=== PATIENT | male | born 1950 | race Caucasian/White ===

== ENCOUNTER 2017-04-10 00:52 | Inpatient (IN) | payer MEDICAID, OTHER ==
[~2017-04-10] VITALS: Ht 182.9 cm; Wt 84.8 kg
--- NOTE | 2017-04-10 01:04 | PHYS DOC ---
Adult General Chief Complaint Chief Complaint: MULTIPLE COMPLAINTS HPI HPI Patient is a 66 year old male presenting to the emergency department from [facility] for evaluation of abnormal labs. He has elevated creatinine and had a dialysis catheter placed approximately 2 months ago however he has not started dialysis. He has creatinine levels at least at 5 however his potassium started at 5.2 on March 29 and then was 6.2 on April 06 and today was drawn and it was 6.6. An EKG was done which reportedly they did not like so they sent him here for further evaluation and treatment. They say that they sent him as no physician was willing to do dialysis on him. Patient says that he is asymptomatic with no chest pain shortness of breath nausea vomiting or weakness. He does have bilateral lower extremity swelling. Review of Systems Review of Systems Constitutional: Denies fever or chills [] Eyes: Denies change in visual acuity, redness, or eye pain [] HENT: Denies nasal congestion or sore throat [] Respiratory: Denies cough or shortness of breath [] Cardiovascular: No additional information not addressed in HPI [] GI: Denies abdominal pain, nausea, vomiting, bloody stools or diarrhea [] : Denies dysuria or hematuria [] Musculoskeletal: Denies back pain or joint pain [] Integument: Denies rash or skin lesions [] Neurologic: Denies headache, focal weakness or sensory changes [] Allergies Allergies Allergies Coded Allergies Type Severity Reaction Last Updated Verified morphine Allergy Unknown 04/10/17 Yes Physical Exam Physical Exam Constitutional: Well developed, well nourished, no acute distress, non-toxic appearance. [] HENT: Normocephalic, atraumatic, bilateral external ears normal, oropharynx moist, no oral exudates, nose normal. [] Eyes: PERRLA, EOMI, conjunctiva pale, no discharge. [] Neck: Normal range of motion, no tenderness, supple, no stridor. [] Cardiovascular:Heart rate regular rhythm, no murmur [] Lungs & Thorax: Bilateral breath sounds clear to auscultation [] Abdomen: Bowel sounds normal, soft, no tenderness, no masses, no pulsatile masses. [] Skin: Warm, dry, no erythema, no rash. [] Back: No tenderness, no CVA tenderness. [] Extremities: No tenderness, no cyanosis, no clubbing, ROM intact, 1-2+ edema BL. [] Neurologic: Alert and oriented X 3, normal motor function, normal sensory function, no focal deficits noted. [] Current Patient Data Vital Signs Vital Signs Date Time Temp Pulse Resp B/P (MAP) Pulse Ox O2 Delivery O2 Flow Rate FiO2 04/10/17 00:52 98.4 80 164/77 (106) 100 Room Air 98.4 Lab Values Laboratory Tests Test 04/10/17 01:20 White Blood Count 4.6 x10^3/uL (4.0-11.0) Red Blood Count 2.86 x10^6/uL (4.30-5.70) L Hemoglobin 8.1 g/dL (13.0-17.5) L Hematocrit 25.3 % (39.0-53.0) L Mean Corpuscular Volume 88 fL (79-100) Mean Corpuscular Hemoglobin 29 pg (25-35) Mean Corpuscular Hemoglobin Concent 32 g/dL (31-37) Red Cell Distribution Width 15.2 % (11.5-14.5) H Platelet Count 68 x10^3/uL (140-400) L Neutrophils (%) (Auto) 46 % (31-73) Lymphocytes (%) (Auto) 33 % (24-48) Monocytes (%) (Auto) 7 % (0-9) Eosinophils (%) (Auto) 12 % (0-3) H Basophils (%) (Auto) 1 % (0-3) Neutrophils # (Auto) 2.1 x10^3uL (1.8-7.7) Lymphocytes # (Auto) 1.5 x10^3/uL (1.0-4.8) Monocytes # (Auto) 0.3 x10^3/uL (0.0-1.1) Eosinophils # (Auto) 0.6 x10^3/uL (0.0-0.7) Basophils # (Auto) 0.1 x10^3/uL (0.0-0.2) Prothrombin Time 13.9 SEC (11.7-14.0) Prothrombin Time INR 1.1 (0.8-1.1) PTT 31 SEC (24-38) Sodium Level 140 mmol/L (136-145) Potassium Level 5.8 mmol/L (3.5-5.1) H Chloride Level 107 mmol/L (98-107) Carbon Dioxide Level 21 mmol/L (21-32) Anion Gap 12 (6-14) Blood Urea Nitrogen 78 mg/dL (8-26) H Creatinine 5.4 mg/dL (0.7-1.3) H Estimated GFR (Cockcroft-Gault) 10.7 BUN/Creatinine Ratio 14 (6-20) Glucose Level 88 mg/dL (70-99) Calcium Level 8.2 mg/dL (8.5-10.1) L Magnesium Level 3.0 mg/dL (1.8-2.4) H Total Bilirubin 0.2 mg/dL (0.2-1.0) Aspartate Amino Transferase (AST) 25 U/L (15-37) Alanine Aminotransferase (ALT) 16 U/L (16-63) Alkaline Phosphatase 71 U/L (46-116) Troponin I Quantitative < 0.017 ng/mL (0.000-0.055) AL-Wkp-U-Type Natriuretic Peptide 6777 pg/mL (0-124) H Total Protein 6.6 g/dL (6.4-8.2) Albumin 2.9 g/dL (3.4-5.0) L Albumin/Globulin Ratio 0.8 (1.0-1.7) L Laboratory Tests 04/10/17 01:20 Laboratory Tests 04/10/17 01:20 EKG EKG Sinus rhythm at 79 beats her minutes with normal axis no obvious ST elevation or depression slightly peaked T waves in lead V3 and V4. QRS complex is normal interval. Radiology/Procedures Radiology/Procedures [] Course & Med Decision Making Course & Med Decision Making If potassium is indeed 6.6 she will likely require admission for dialysis although his EKG is normal at this time. Potassium is 5.8 and patient does have mildly peaked T waves but there is a normal QRS. To be more of a slowly progressing issue and he is tearing on the breaking point. Given his poor lack of follow-up and inability to sit up dialysis an outpatient he'll be admitted for further observation and treatment. Dragon Disclaimer Dragon Disclaimer This electronic medical record was generated, in whole or in part, using a voice recognition dictation system. Departure Departure Impression: Primary Impression: Hyperkalemia Additional Impressions: ESRD (end stage renal disease) Anemia Disposition: 09 ADMITTED INPATIENT Admitting Physician: Ann Moeller Condition: STABLE Problem Qualifiers YOUSUF GODDARD DO Apr 10, 2017 01:04
[2017-04-10 01:29] LABS: BASO # 0.1 x10^3/uL (0.0-0.2); BASO % 1 % (0-3); EOS % 12 % (0-3); HEMATOCRIT 25.3 % (39.0-53.0); HEMOGLOBIN 8.1 g/dL (13.0-17.5); LYMPH # 1.5 x10^3/uL (1.0-4.8); LYMPH % 33 % (24-48); MEAN CORPUSCULAR HEMOGLOBIN 29 pg (25-35); MEAN CORPUSCULAR HGB CONC 32 g/dL (31-37); MEAN CORPUSCULAR VOLUME 88 fL (79-100); MONO % 7 % (0-9); NEUT % 46 % (31-73); PLATELET COUNT 68 x10^3/uL (140-400); RED BLOOD COUNT 2.86 x10^6/uL (4.30-5.70); RED CELL DISTRIBUTION WIDTH 15.2 % (11.5-14.5); WHITE BLOOD COUNT 4.6 x10^3/uL (4.0-11.0)
[2017-04-10 01:40] LABS: CALCIUM 8.2 mg/dL (8.5-10.1); CREATININE 5.4 mg/dL (0.7-1.3); GFR 10.7; POTASSIUM 5.8 mmol/L (3.5-5.1)
[2017-04-10 01:43] LABS: INR 1.1 (0.8-1.1); PROTHROMBIN TIME PATIENT 13.9 SEC (11.7-14.0)
[2017-04-10 01:46] LABS: ALBUMIN 2.9 g/dL (3.4-5.0); ALBUMIN/GLOBULIN RATIO 0.8 (1.0-1.7); TOTAL BILIRUBIN 0.2 mg/dL (0.2-1.0); TOTAL PROTEIN 6.6 g/dL (6.4-8.2)
[2017-04-10 03:00] VITALS: BP 146/73
[2017-04-10] MEDS: IV NORMAL SALINE 1000ML BAG 1,000 ML IV SCH ×3 (03:14→21:16)
[2017-04-10] MEDS ORDERED: TAMS0.4C2 PO (04:00)
[2017-04-10] MEDS ORDERED: ONDA4TAB10 SL (04:00)
[2017-04-10] MEDS ORDERED: NPH,100V SQ (04:00)
[2017-04-10] MEDS ORDERED: SULF1TAB24 PO (04:00)
[2017-04-10] MEDS ORDERED: INSU100V5 IJ (04:00)
[2017-04-10] MEDS ORDERED: FURO40TA4 PO (04:00)
[2017-04-10] MEDS ORDERED: METF500T4 PO (04:00)
[2017-04-10] MEDS ORDERED: AMLO10TA4 PO (04:00)
[2017-04-10] MEDS ORDERED: DIVA500T2 PO (04:00)
[2017-04-10 07:00] VITALS: BP 137/59
[2017-04-10 11:00] VITALS: BP 154/67
--- NOTE | 2017-04-10 11:21 | EKG ---
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
[2017-04-10] MEDS: amLODIPine BESYLATE 10 MG TABLET PO SCH (12:47)
[2017-04-10] MEDS: TAMSULOSIN 0.4 MG CAP.ER.24H. PO SCH (12:47)
[2017-04-10] MEDS: DIVALPROEX DELAYED RELEASE 500 MG TABLET.DR. PO SCH ×2 (12:48→21:19)
[2017-04-10] MEDS: FUROSEMIDE 40 MG TABLET. PO SCH (12:48)
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
[2017-04-10] MEDS ORDERED: SMZ/TMP 800/160MG TABLET. PO SCH (13:00)
[2017-04-10 15:00] VITALS: BP 118/53
[2017-04-10] MEDS: INSULIN ASPART 300 UNITS/3 ML INSULN.PEN SQ SCH (16:30)
--- NOTE | 2017-04-10 17:34 | PDOC2 ---
CONSULT Date of Consult Date of Consult DATE: 04/10/17 TIME: 17:27 Reason for Consult Reason for Consult: CKD History of Present Illness Reason for Visit: 66 yr old gentleman. From local [facility]. Admitted for fever, malaise. No CP or SOA but perhaps a bit SOA earlier today Looks comfortable. Eating dinner. No other c/o Current Problem List Problem List Problems Medical Problems: (1) Anemia Status: Acute (2) ESRD (end stage renal disease) Status: Acute (3) Hyperkalemia Status: Acute Current Medications Current Medications Current Medications Sodium Chloride 1,000 ml @ 100 mls/hr Q10H IV Last administered on 04/10/17 12:48; Start 04/10/17 at 02:00; Stop 04/11/17 at 01:59 Amlodipine Besylate (Norvasc) 10 mg DAILY PO Last administered on 04/10/17 12: 47; Start 04/10/17 at 13:00 Divalproex Sodium (Depakote) 500 mg BID PO Last administered on 04/10/17 12:48 ; Start 04/10/17 at 13:00 Furosemide (Lasix) 40 mg DAILY PO Last administered on 04/10/17 12:48; Start 04/10/17 at 13:00 Insulin Aspart (NovoLOG) 10 units TIDAC SQ ; Start 04/10/17 at 16:30 Trimethoprim/ Sulfamethoxazole (Bactrim Ds) 1 tab BID PO Last administered on 12:47; Start 04/10/17 at 13:00; Stop 04/11/17 at 21:01 Tamsulosin HCl (Flomax) 0.4 mg DAILY PO Last administered on 04/10/17 12:47; Start 04/10/17 at 13:00 Insulin Detemir (Levemir) 5 units BID SQ ; Start 04/10/17 at 21:00 Active Scripts Active Reported Zofran Odt (Ondansetron) 4 Mg Tab.rapdis 1 Tab SL Q6HRS Tamsulosin Hcl 0.4 Mg Cap.er.24h 0.4 Mg PO DAILY Norvasc (Amlodipine Besylate) 10 Mg Tablet 10 Mg PO DAILY Metformin Hcl 500 Mg Tablet 500 Mg PO BIDWMEALS Humulin R (Insulin Regular, Human) 100 Unit/1 Ml Vial 100 Unit IJ Humulin N (Nph, Human Insulin Isophane) 100 Unit/1 Ml Vial 5 Unit SQ BID Furosemide 40 Mg Tablet 1 Tab PO DAILY Depakote (Divalproex Sodium) 500 Mg Tablet. 1 Tab PO BID Bactrim Ds Tablet (Sulfamethoxazole/Trimethoprim) 1 Each Tablet 1 Tab PO BID Allergies Allergies: Coded Allergies: morphine (Verified Allergy, Unknown, 04/10/17) ROS Review of System As above / neg on a 10 point scale. Physical Exam General: Alert, Oriented X3, No acute distress HEENT: Atraumatic Lungs: Normal air movement, Other (Non labored) Heart: Regular rate, Normal S1, Normal S2 Abdomen: Soft, No tenderness, No hepatosplenomegaly Skin: No rashes Neuro: Normal speech, Normal tone Psych/Mental Status: Mental status NL Vitals VITALS Vital Signs Date Time Temp Pulse Resp B/P (MAP) Pulse Ox O2 Delivery O2 Flow Rate FiO2 04/10/17 15:00 99.5 62 18 118/53 (74) 94 Room Air 99.5 Labs Labs Laboratory Tests Test 04/10/17 01:20 04/10/17 07:46 04/10/17 11:21 04/10/17 16:09 White Blood Count 4.6 x10^3/uL (4.0-11.0) Red Blood Count 2.86 x10^6/uL (4.30-5.70) Hemoglobin 8.1 g/dL (13.0-17.5) Hematocrit 25.3 % (39.0-53.0) Mean Corpuscular Volume 88 fL (79-100) Mean Corpuscular Hemoglobin 29 pg (25-35) Mean Corpuscular Hemoglobin Concent 32 g/dL (31-37) Red Cell Distribution Width 15.2 % (11.5-14.5) Platelet Count 68 x10^3/uL (140-400) Neutrophils (%) (Auto) 46 % (31-73) Lymphocytes (%) (Auto) 33 % (24-48) Monocytes (%) (Auto) 7 % (0-9) Eosinophils (%) (Auto) 12 % (0-3) Basophils (%) (Auto) 1 % (0-3) Neutrophils # (Auto) 2.1 x10^3uL (1.8-7.7) Lymphocytes # (Auto) 1.5 x10^3/uL (1.0-4.8) Monocytes # (Auto) 0.3 x10^3/uL (0.0-1.1) Eosinophils # (Auto) 0.6 x10^3/uL (0.0-0.7) Basophils # (Auto) 0.1 x10^3/uL (0.0-0.2) Prothrombin Time 13.9 SEC (11.7-14.0) Prothromb Time International Ratio 1.1 (0.8-1.1) Activated Partial Thromboplast Time 31 SEC (24-38) Sodium Level 140 mmol/L (136-145) Potassium Level 5.8 mmol/L (3.5-5.1) Chloride Level 107 mmol/L (98-107) Carbon Dioxide Level 21 mmol/L (21-32) Anion Gap 12 (6-14) Blood Urea Nitrogen 78 mg/dL (8-26) Creatinine 5.4 mg/dL (0.7-1.3) Estimated GFR (Cockcroft-Gault) 10.7 BUN/Creatinine Ratio 14 (6-20) Glucose Level 88 mg/dL (70-99) Calcium Level 8.2 mg/dL (8.5-10.1) Magnesium Level 3.0 mg/dL (1.8-2.4) Total Bilirubin 0.2 mg/dL (0.2-1.0) Aspartate Amino Transf (AST/SGOT) 25 U/L (15-37) Alanine Aminotransferase (ALT/SGPT) 16 U/L (16-63) Alkaline Phosphatase 71 U/L (46-116) Troponin I Quantitative < 0.017 ng/mL (0.000-0.055) OC-Grx-R-Type Natriuretic Peptide 6777 pg/mL (0-124) Total Protein 6.6 g/dL (6.4-8.2) Albumin 2.9 g/dL (3.4-5.0) Albumin/Globulin Ratio 0.8 (1.0-1.7) Glucose (Fingerstick) 89 mg/dL (70-99) 117 mg/dL (70-99) 98 mg/dL (70-99) Laboratory Tests Test 04/10/17 01:20 04/10/17 07:46 04/10/17 11:21 04/10/17 16:09 White Blood Count 4.6 x10^3/uL (4.0-11.0) Red Blood Count 2.86 x10^6/uL (4.30-5.70) Hemoglobin 8.1 g/dL (13.0-17.5) Hematocrit 25.3 % (39.0-53.0) Mean Corpuscular Volume 88 fL (79-100) Mean Corpuscular Hemoglobin 29 pg (25-35) Mean Corpuscular Hemoglobin Concent 32 g/dL (31-37) Red Cell Distribution Width 15.2 % (11.5-14.5) Platelet Count 68 x10^3/uL (140-400) Neutrophils (%) (Auto) 46 % (31-73) Lymphocytes (%) (Auto) 33 % (24-48) Monocytes (%) (Auto) 7 % (0-9) Eosinophils (%) (Auto) 12 % (0-3) Basophils (%) (Auto) 1 % (0-3) Neutrophils # (Auto) 2.1 x10^3uL (1.8-7.7) Lymphocytes # (Auto) 1.5 x10^3/uL (1.0-4.8) Monocytes # (Auto) 0.3 x10^3/uL (0.0-1.1) Eosinophils # (Auto) 0.6 x10^3/uL (0.0-0.7) Basophils # (Auto) 0.1 x10^3/uL (0.0-0.2) Prothrombin Time 13.9 SEC (11.7-14.0) Prothromb Time International Ratio 1.1 (0.8-1.1) Activated Partial Thromboplast Time 31 SEC (24-38) Sodium Level 140 mmol/L (136-145) Potassium Level 5.8 mmol/L (3.5-5.1) Chloride Level 107 mmol/L (98-107) Carbon Dioxide Level 21 mmol/L (21-32) Anion Gap 12 (6-14) Blood Urea Nitrogen 78 mg/dL (8-26) Creatinine 5.4 mg/dL (0.7-1.3) Estimated GFR (Cockcroft-Gault) 10.7 BUN/Creatinine Ratio 14 (6-20) Glucose Level 88 mg/dL (70-99) Calcium Level 8.2 mg/dL (8.5-10.1) Magnesium Level 3.0 mg/dL (1.8-2.4) Total Bilirubin 0.2 mg/dL (0.2-1.0) Aspartate Amino Transf (AST/SGOT) 25 U/L (15-37) Alanine Aminotransferase (ALT/SGPT) 16 U/L (16-63) Alkaline Phosphatase 71 U/L (46-116) Troponin I Quantitative < 0.017 ng/mL (0.000-0.055) GP-Tir-Y-Type Natriuretic Peptide 6777 pg/mL (0-124) Total Protein 6.6 g/dL (6.4-8.2) Albumin 2.9 g/dL (3.4-5.0) Albumin/Globulin Ratio 0.8 (1.0-1.7) Glucose (Fingerstick) 89 mg/dL (70-99) 117 mg/dL (70-99) 98 mg/dL (70-99) Assessment/Plan Assessment/Plan CKD IV HYPERKALEMIA HTN Start HD today/tomorrow. Recheck labs. I/Os d/w pt LISANDRO GUZMÁN MD Apr 10, 2017 17:34
[2017-04-10 18:26] LABS: CALCIUM 7.8 mg/dL (8.5-10.1); GFR 11.7
[2017-04-10] MEDS ORDERED: IV NORMAL SALINE 1000ML BAG 1,000 ML IV PRN (18:36)
[2017-04-10 18:45] LABS: POTASSIUM 6.1 mmol/L (3.5-5.1)
[2017-04-10] MEDS ORDERED: 0.9 % SODIUM CHLORIDE 10 ML DISP.SYRIN. IV PRN ×2 (18:45)
[2017-04-10] MEDS ORDERED: DIALYSIS PATIENT. MC PRN (18:45)
[2017-04-10] MEDS: INSULIN DETEMIR 300 UNITS/3 ML INSULN.PEN. SQ SCH (21:26)
[2017-04-10 23:20] VITALS: BP 130/70
[2017-04-11 03:54] VITALS: BP 123/64
[2017-04-11 07:00] VITALS: BP 137/102
[2017-04-11] MEDS: INSULIN ASPART 300 UNITS/3 ML INSULN.PEN SQ SCH ×3 (07:30→16:30)
[2017-04-11] MEDS: INSULIN DETEMIR 300 UNITS/3 ML INSULN.PEN. SQ SCH ×2 (09:00→20:59)
[2017-04-11] MEDS: FUROSEMIDE 40 MG TABLET. PO SCH (09:06)
[2017-04-11] MEDS: amLODIPine BESYLATE 10 MG TABLET PO SCH (09:07)
[2017-04-11] MEDS: DIVALPROEX DELAYED RELEASE 500 MG TABLET.DR. PO SCH ×2 (09:07→20:57)
[2017-04-11] MEDS: TAMSULOSIN 0.4 MG CAP.ER.24H. PO SCH (09:07)
[2017-04-11 09:50] LABS: BASO % 1 % (0-3); EOS % 10 % (0-3); HEMATOCRIT 22.3 % (39.0-53.0); HEMOGLOBIN 7.5 g/dL (13.0-17.5); LYMPH # 1.4 x10^3/uL (1.0-4.8); LYMPH % 35 % (24-48); MEAN CORPUSCULAR HEMOGLOBIN 29 pg (25-35); MEAN CORPUSCULAR HGB CONC 34 g/dL (31-37); MEAN CORPUSCULAR VOLUME 86 fL (79-100); MONO % 8 % (0-9); NEUT % 45 % (31-73); PLATELET COUNT 58 x10^3/uL (140-400); RED BLOOD COUNT 2.58 x10^6/uL (4.30-5.70); RED CELL DISTRIBUTION WIDTH 15.2 % (11.5-14.5); WHITE BLOOD COUNT 4.1 x10^3/uL (4.0-11.0)
[2017-04-11 10:09] LABS: CALCIUM 8.1 mg/dL (8.5-10.1); CREATININE 4.2 mg/dL (0.7-1.3); GFR 14.4; POTASSIUM 5.4 mmol/L (3.5-5.1)
[2017-04-11 11:00] VITALS: BP 142/98
[2017-04-11 14:55] VITALS: BP 130/90
--- NOTE | 2017-04-11 15:01 | PDOC ---
PROGRESS NOTES Chief Complaint Chief Complaint Hyperkalemia secondary to end stage renal disease PMH: End stage renal disease htn DM hld History of Present Illness History of Present Illness Pt seems comfortable, sitting up in bed. Two correction officers in the patient 's room with him. Pt reports he received dialysis yesterday. Labs: K 6.1, BUN 73, Cr 5.0, Hgb 8.1 EKG changes: slightly peaked T waves V3, V4 noted. Swoke with RN pt was complaining about pain, asking for tylenol, ok to give. Vitals Vitals Vital Signs Date Time Temp Pulse Resp B/P (MAP) Pulse Ox O2 Delivery O2 Flow Rate FiO2 04/11/17 11:00 98.1 60 16 142/98 (113) 96 Room Air 98.1 Physical Exam General: Alert, Oriented X3, No acute distress Heart: Regular rate, Normal S1, Normal S2 Lungs: Clear, Other (no wheezing, no crackles) Abdomen: Soft, No tenderness, No hepatosplenomegaly Extremities: No clubbing, No cyanosis, Other (1-2+ LE edema, b/l) Skin: No rashes Labs LABS Laboratory Tests Test 04/10/17 16:09 04/10/17 18:00 04/10/17 21:21 04/11/17 07:01 Glucose (Fingerstick) 98 mg/dL (70-99) 150 mg/dL (70-99) 82 mg/dL (70-99) Sodium Level 137 mmol/L (136-145) Potassium Level 6.1 mmol/L (3.5-5.1) Chloride Level 107 mmol/L (98-107) Carbon Dioxide Level 18 mmol/L (21-32) Anion Gap 12 (6-14) Blood Urea Nitrogen 73 mg/dL (8-26) Creatinine 5.0 mg/dL (0.7-1.3) Estimated GFR (Cockcroft-Gault) 11.7 Glucose Level 161 mg/dL (70-99) Calcium Level 7.8 mg/dL (8.5-10.1) Test 04/11/17 09:20 04/11/17 11:49 White Blood Count 4.1 x10^3/uL (4.0-11.0) Red Blood Count 2.58 x10^6/uL (4.30-5.70) Hemoglobin 7.5 g/dL (13.0-17.5) Hematocrit 22.3 % (39.0-53.0) Mean Corpuscular Volume 86 fL (79-100) Mean Corpuscular Hemoglobin 29 pg (25-35) Mean Corpuscular Hemoglobin Concent 34 g/dL (31-37) Red Cell Distribution Width 15.2 % (11.5-14.5) Platelet Count 58 x10^3/uL (140-400) Neutrophils (%) (Auto) 45 % (31-73) Lymphocytes (%) (Auto) 35 % (24-48) Monocytes (%) (Auto) 8 % (0-9) Eosinophils (%) (Auto) 10 % (0-3) Basophils (%) (Auto) 1 % (0-3) Neutrophils # (Auto) 1.9 x10^3uL (1.8-7.7) Lymphocytes # (Auto) 1.4 x10^3/uL (1.0-4.8) Monocytes # (Auto) 0.3 x10^3/uL (0.0-1.1) Eosinophils # (Auto) 0.4 x10^3/uL (0.0-0.7) Basophils # (Auto) 0.0 x10^3/uL (0.0-0.2) Sodium Level 139 mmol/L (136-145) Potassium Level 5.4 mmol/L (3.5-5.1) Chloride Level 107 mmol/L (98-107) Carbon Dioxide Level 26 mmol/L (21-32) Anion Gap 6 (6-14) Blood Urea Nitrogen 50 mg/dL (8-26) Creatinine 4.2 mg/dL (0.7-1.3) Estimated GFR (Cockcroft-Gault) 14.4 Glucose Level 125 mg/dL (70-99) Calcium Level 8.1 mg/dL (8.5-10.1) Glucose (Fingerstick) 126 mg/dL (70-99) Review of Systems Review of Systems c/o pain c/o hunger Assessment and Plan Assessmemt and Plan Problems Medical Problems: (1) Anemia Status: Acute (2) ESRD (end stage renal disease) Status: Acute (3) Hyperkalemia Status: Acute Hyperkalemia secondary to ESRD Hypertension 1. Pain control: acetaminophen 650 mg PO q6hrs prn for pain 2. HD per Dr. Morales, appreciate input 3. Monitor I/Os 4. Recheck labs 5. PT/OT 6. Continue home meds 7. Discharge when okay with nephrology Problems: Comment Review of Relevant I have reviewed the following items carmela (where applicable) has been applied. Labs Laboratory Tests Test 04/10/17 01:20 04/10/17 04:00 04/10/17 07:46 04/10/17 11:21 White Blood Count 4.6 x10^3/uL (4.0-11.0) Red Blood Count 2.86 x10^6/uL (4.30-5.70) Hemoglobin 8.1 g/dL (13.0-17.5) Hematocrit 25.3 % (39.0-53.0) Mean Corpuscular Volume 88 fL (79-100) Mean Corpuscular Hemoglobin 29 pg (25-35) Mean Corpuscular Hemoglobin Concent 32 g/dL (31-37) Red Cell Distribution Width 15.2 % (11.5-14.5) Platelet Count 68 x10^3/uL (140-400) Neutrophils (%) (Auto) 46 % (31-73) Lymphocytes (%) (Auto) 33 % (24-48) Monocytes (%) (Auto) 7 % (0-9) Eosinophils (%) (Auto) 12 % (0-3) Basophils (%) (Auto) 1 % (0-3) Neutrophils # (Auto) 2.1 x10^3uL (1.8-7.7) Lymphocytes # (Auto) 1.5 x10^3/uL (1.0-4.8) Monocytes # (Auto) 0.3 x10^3/uL (0.0-1.1) Eosinophils # (Auto) 0.6 x10^3/uL (0.0-0.7) Basophils # (Auto) 0.1 x10^3/uL (0.0-0.2) Prothrombin Time 13.9 SEC (11.7-14.0) Prothromb Time International Ratio 1.1 (0.8-1.1) Activated Partial Thromboplast Time 31 SEC (24-38) Sodium Level 140 mmol/L (136-145) Potassium Level 5.8 mmol/L (3.5-5.1) Chloride Level 107 mmol/L (98-107) Carbon Dioxide Level 21 mmol/L (21-32) Anion Gap 12 (6-14) Blood Urea Nitrogen 78 mg/dL (8-26) Creatinine 5.4 mg/dL (0.7-1.3) Estimated GFR (Cockcroft-Gault) 10.7 BUN/Creatinine Ratio 14 (6-20) Glucose Level 88 mg/dL (70-99) Calcium Level 8.2 mg/dL (8.5-10.1) Magnesium Level 3.0 mg/dL (1.8-2.4) Total Bilirubin 0.2 mg/dL (0.2-1.0) Aspartate Amino Transf (AST/SGOT) 25 U/L (15-37) Alanine Aminotransferase (ALT/SGPT) 16 U/L (16-63) Alkaline Phosphatase 71 U/L (46-116) Troponin I Quantitative < 0.017 ng/mL (0.000-0.055) VK-Drl-A-Type Natriuretic Peptide 6777 pg/mL (0-124) Total Protein 6.6 g/dL (6.4-8.2) Albumin 2.9 g/dL (3.4-5.0) Albumin/Globulin Ratio 0.8 (1.0-1.7) Nasal Screen MRSA (PCR) Negative (Negative) Glucose (Fingerstick) 89 mg/dL (70-99) 117 mg/dL (70-99) Test 04/10/17 16:09 04/10/17 18:00 04/10/17 21:21 04/11/17 07:01 Glucose (Fingerstick) 98 mg/dL (70-99) 150 mg/dL (70-99) 82 mg/dL (70-99) Sodium Level 137 mmol/L (136-145) Potassium Level 6.1 mmol/L (3.5-5.1) Chloride Level 107 mmol/L (98-107) Carbon Dioxide Level 18 mmol/L (21-32) Anion Gap 12 (6-14) Blood Urea Nitrogen 73 mg/dL (8-26) Creatinine 5.0 mg/dL (0.7-1.3) Estimated GFR (Cockcroft-Gault) 11.7 Glucose Level 161 mg/dL (70-99) Calcium Level 7.8 mg/dL (8.5-10.1) Test 04/11/17 09:20 04/11/17 11:49 White Blood Count 4.1 x10^3/uL (4.0-11.0) Red Blood Count 2.58 x10^6/uL (4.30-5.70) Hemoglobin 7.5 g/dL (13.0-17.5) Hematocrit 22.3 % (39.0-53.0) Mean Corpuscular Volume 86 fL (79-100) Mean Corpuscular Hemoglobin 29 pg (25-35) Mean Corpuscular Hemoglobin Concent 34 g/dL (31-37) Red Cell Distribution Width 15.2 % (11.5-14.5) Platelet Count 58 x10^3/uL (140-400) Neutrophils (%) (Auto) 45 % (31-73) Lymphocytes (%) (Auto) 35 % (24-48) Monocytes (%) (Auto) 8 % (0-9) Eosinophils (%) (Auto) 10 % (0-3) Basophils (%) (Auto) 1 % (0-3) Neutrophils # (Auto) 1.9 x10^3uL (1.8-7.7) Lymphocytes # (Auto) 1.4 x10^3/uL (1.0-4.8) Monocytes # (Auto) 0.3 x10^3/uL (0.0-1.1) Eosinophils # (Auto) 0.4 x10^3/uL (0.0-0.7) Basophils # (Auto) 0.0 x10^3/uL (0.0-0.2) Sodium Level 139 mmol/L (136-145) Potassium Level 5.4 mmol/L (3.5-5.1) Chloride Level 107 mmol/L (98-107) Carbon Dioxide Level 26 mmol/L (21-32) Anion Gap 6 (6-14) Blood Urea Nitrogen 50 mg/dL (8-26) Creatinine 4.2 mg/dL (0.7-1.3) Estimated GFR (Cockcroft-Gault) 14.4 Glucose Level 125 mg/dL (70-99) Calcium Level 8.1 mg/dL (8.5-10.1) Glucose (Fingerstick) 126 mg/dL (70-99) Laboratory Tests Test 04/10/17 16:09 04/10/17 18:00 04/10/17 21:21 04/11/17 07:01 Glucose (Fingerstick) 98 mg/dL (70-99) 150 mg/dL (70-99) 82 mg/dL (70-99) Sodium Level 137 mmol/L (136-145) Potassium Level 6.1 mmol/L (3.5-5.1) Chloride Level 107 mmol/L (98-107) Carbon Dioxide Level 18 mmol/L (21-32) Anion Gap 12 (6-14) Blood Urea Nitrogen 73 mg/dL (8-26) Creatinine 5.0 mg/dL (0.7-1.3) Estimated GFR (Cockcroft-Gault) 11.7 Glucose Level 161 mg/dL (70-99) Calcium Level 7.8 mg/dL (8.5-10.1) Test 04/11/17 09:20 04/11/17 11:49 White Blood Count 4.1 x10^3/uL (4.0-11.0) Red Blood Count 2.58 x10^6/uL (4.30-5.70) Hemoglobin 7.5 g/dL (13.0-17.5) Hematocrit 22.3 % (39.0-53.0) Mean Corpuscular Volume 86 fL (79-100) Mean Corpuscular Hemoglobin 29 pg (25-35) Mean Corpuscular Hemoglobin Concent 34 g/dL (31-37) Red Cell Distribution Width 15.2 % (11.5-14.5) Platelet Count 58 x10^3/uL (140-400) Neutrophils (%) (Auto) 45 % (31-73) Lymphocytes (%) (Auto) 35 % (24-48) Monocytes (%) (Auto) 8 % (0-9) Eosinophils (%) (Auto) 10 % (0-3) Basophils (%) (Auto) 1 % (0-3) Neutrophils # (Auto) 1.9 x10^3uL (1.8-7.7) Lymphocytes # (Auto) 1.4 x10^3/uL (1.0-4.8) Monocytes # (Auto) 0.3 x10^3/uL (0.0-1.1) Eosinophils # (Auto) 0.4 x10^3/uL (0.0-0.7) Basophils # (Auto) 0.0 x10^3/uL (0.0-0.2) Sodium Level 139 mmol/L (136-145) Potassium Level 5.4 mmol/L (3.5-5.1) Chloride Level 107 mmol/L (98-107) Carbon Dioxide Level 26 mmol/L (21-32) Anion Gap 6 (6-14) Blood Urea Nitrogen 50 mg/dL (8-26) Creatinine 4.2 mg/dL (0.7-1.3) Estimated GFR (Cockcroft-Gault) 14.4 Glucose Level 125 mg/dL (70-99) Calcium Level 8.1 mg/dL (8.5-10.1) Glucose (Fingerstick) 126 mg/dL (70-99) Medications Current Medications Sodium Chloride 1,000 ml @ 100 mls/hr Q10H IV Last administered on 04/10/17 12:48; Start 04/10/17 at 02:00; Stop 04/11/17 at 01:59; Status DC Amlodipine Besylate (Norvasc) 10 mg DAILY PO Last administered on 04/11/17 09: 07; Start 04/10/17 at 13:00 Divalproex Sodium (Depakote) 500 mg BID PO Last administered on 04/11/17 09:07 ; Start 04/10/17 at 13:00 Furosemide (Lasix) 40 mg DAILY PO Last administered on 04/11/17 09:06; Start 04/10/17 at 13:00 Insulin Aspart (NovoLOG) 10 units TIDAC SQ ; Start 04/10/17 at 16:30 Trimethoprim/ Sulfamethoxazole (Bactrim Ds) 1 tab BID PO Last administered on 12:47; Start 04/10/17 at 13:00; Stop 04/10/17 at 17:27; Status DC Tamsulosin HCl (Flomax) 0.4 mg DAILY PO Last administered on 04/11/17 09:07; Start 04/10/17 at 13:00 Insulin Detemir (Levemir) 5 units BID SQ Last administered on 8/26/17at 21:26; Start 04/10/17 at 21:00 Sodium Chloride 1,000 ml @ 1,000 mls/hr Q1H PRN IV hypotension; Start 04/10/17 at 18:36; Stop 04/11/17 at 00:35; Status DC Sodium Chloride (Normal Saline Flush) 10 ml 1X PRN PRN IV AP catheter pack; Start 04/10/17 at 18:45; Stop 04/11/17 at 18:44 Sodium Chloride (Normal Saline Flush) 10 ml 1X PRN PRN IV [employer] catheter pack; Start 04/10/17 at 18:45; Stop 04/11/17 at 18:44 Info (PHARMACY MONITORING -- do not chart) 1 each PRN DAILY PRN MC SEE COMMENTS ; Start 04/10/17 at 18:45 Active Scripts Active Reported Zofran Odt (Ondansetron) 4 Mg Tab.rapdis 1 Tab SL Q6HRS Tamsulosin Hcl 0.4 Mg Cap.er.24h 0.4 Mg PO DAILY Norvasc (Amlodipine Besylate) 10 Mg Tablet 10 Mg PO DAILY Metformin Hcl 500 Mg Tablet 500 Mg PO BIDWMEALS Humulin R (Insulin Regular, Human) 100 Unit/1 Ml Vial 100 Unit IJ Humulin N (Nph, Human Insulin Isophane) 100 Unit/1 Ml Vial 5 Unit SQ BID Furosemide 40 Mg Tablet 1 Tab PO DAILY Depakote (Divalproex Sodium) 500 Mg Tablet.dr 1 Tab PO BID Bactrim Ds Tablet (Sulfamethoxazole/Trimethoprim) 1 Each Tablet 1 Tab PO BID Vitals/I & O Vital Sign - Last 24 Hours 04/10/17 04/10/17 04/11/17 04/11/17 15:00 23:20 03:54 07:00 Temp 99.5 98.9 98.5 98.4 99.5 98.9 98.5 98.4 Pulse 62 66 66 65 Resp 18 18 18 16 B/P (MAP) 118/53 (74) 130/70 (90) 123/64 (83) 137/102 (114) Pulse Ox 94 92 95 94 O2 Delivery Room Air Room Air Room Air Room Air 04/11/17 04/11/17 09:07 11:00 Temp 98.1 98.1 Pulse 65 60 Resp 16 B/P (MAP) 137/102 142/98 (113) Pulse Ox 96 O2 Delivery Room Air Intake and Output 04/10/17 04/10/17 04/11/17 15:00 23:00 07:00 Intake Total 360 ml 800 ml 360 ml Output Total 850 ml 200 ml Balance 360 ml -50 ml 160 ml MARGUERITE JOHNSON III DO Apr 11, 2017 15:01
[2017-04-11] MEDS: ACETAMINOPHEN 325 MG TABLET. PO PRN (15:06)
[2017-04-11 19:00] VITALS: BP 134/65
[2017-04-11 23:00] VITALS: BP 140/69
--- NOTE | 2017-04-11 23:59 | PDOC ---
Provider Note Provider Note RENAL F/U : ARIELLE S : Doing OK No new issues. O : VSS Afberile BP low stable Alert No distress Neck : Supple Lungs : Non labored CVS : RRR Abd : Soft, no masses Ext : Trace edema Labs and meds reviewed. A/P: ESRD HYPOTENSION PVD Labs stable BP better HD in am LISANDRO GUZMÁN MD Apr 11, 2017 23:59
[2017-04-12 04:51] LABS: BASO # 0.1 x10^3/uL (0.0-0.2); BASO % 2 % (0-3); EOS % 12 % (0-3); HEMATOCRIT 22.3 % (39.0-53.0); HEMOGLOBIN 7.4 g/dL (13.0-17.5); LYMPH # 1.9 x10^3/uL (1.0-4.8); LYMPH % 45 % (24-48); MEAN CORPUSCULAR HEMOGLOBIN 29 pg (25-35); MEAN CORPUSCULAR HGB CONC 33 g/dL (31-37); MEAN CORPUSCULAR VOLUME 87 fL (79-100); MONO % 9 % (0-9); NEUT % 32 % (31-73); PLATELET COUNT 56 x10^3/uL (140-400); RED BLOOD COUNT 2.55 x10^6/uL (4.30-5.70); RED CELL DISTRIBUTION WIDTH 15.3 % (11.5-14.5); WHITE BLOOD COUNT 4.2 x10^3/uL (4.0-11.0)
[2017-04-12 05:34] LABS: CALCIUM 7.9 mg/dL (8.5-10.1); CREATININE 4.6 mg/dL (0.7-1.3); GFR 12.9; POTASSIUM 5.1 mmol/L (3.5-5.1)
[2017-04-12 07:00] VITALS: BP 136/62
[2017-04-12] MEDS: INSULIN ASPART 300 UNITS/3 ML INSULN.PEN SQ SCH ×4 (07:30→16:30)
[2017-04-12] MEDS: INSULIN DETEMIR 300 UNITS/3 ML INSULN.PEN. SQ SCH ×2 (09:00→20:50)
[2017-04-12] MEDS: FUROSEMIDE 40 MG TABLET. PO SCH (09:19)
[2017-04-12] MEDS: TAMSULOSIN 0.4 MG CAP.ER.24H. PO SCH (09:19)
[2017-04-12] MEDS: DIVALPROEX DELAYED RELEASE 500 MG TABLET.DR. PO SCH ×2 (09:19→20:43)
[2017-04-12] MEDS: amLODIPine BESYLATE 10 MG TABLET PO SCH (09:19)
[2017-04-12 10:39] VITALS: BP 152/66
--- NOTE | 2017-04-12 12:10 | PDOC ---
PROGRESS NOTES Chief Complaint Chief Complaint Hyperkalemia secondary to end stage renal disease PMH: End stage renal disease htn DM hld History of Present Illness History of Present Illness Pt seems comfortable, sitting up in bed. Pt is scheduled for HD today. Two correction officers in the patient's room with him. Labs: K 5.1, BUN 52, Cr 4.9, Hgb 7.4 EKG changes: slightly peaked T waves V3, V4 noted. Nasal MRSA culture negative Vitals Vitals Vital Signs Date Time Temp Pulse Resp B/P (MAP) Pulse Ox O2 Delivery O2 Flow Rate FiO2 04/12/17 10:39 97.7 63 18 152/66 (94) 94 Room Air 97.7 Physical Exam General: Alert, Oriented X3, Cooperative, No acute distress Heart: Regular rate, Normal S1, Normal S2 Lungs: Clear, Other (no wheezing, no crackles) Abdomen: Soft, No tenderness, No hepatosplenomegaly Extremities: No clubbing, No cyanosis, Other (1-2+ LE edema, b/l) Skin: No rashes, No significant lesion Labs LABS Laboratory Tests Test 04/11/17 16:43 04/11/17 20:56 04/12/17 04:23 04/12/17 04:42 Glucose (Fingerstick) 123 mg/dL (70-99) 164 mg/dL (70-99) Sodium Level 141 mmol/L (136-145) Potassium Level 5.1 mmol/L (3.5-5.1) Chloride Level 109 mmol/L (98-107) Carbon Dioxide Level 26 mmol/L (21-32) Anion Gap 6 (6-14) Blood Urea Nitrogen 52 mg/dL (8-26) Creatinine 4.6 mg/dL (0.7-1.3) Estimated GFR (Cockcroft-Gault) 12.9 Glucose Level 76 mg/dL (70-99) Calcium Level 7.9 mg/dL (8.5-10.1) White Blood Count 4.2 x10^3/uL (4.0-11.0) Red Blood Count 2.55 x10^6/uL (4.30-5.70) Hemoglobin 7.4 g/dL (13.0-17.5) Hematocrit 22.3 % (39.0-53.0) Mean Corpuscular Volume 87 fL (79-100) Mean Corpuscular Hemoglobin 29 pg (25-35) Mean Corpuscular Hemoglobin Concent 33 g/dL (31-37) Red Cell Distribution Width 15.3 % (11.5-14.5) Platelet Count 56 x10^3/uL (140-400) Neutrophils (%) (Auto) 32 % (31-73) Lymphocytes (%) (Auto) 45 % (24-48) Monocytes (%) (Auto) 9 % (0-9) Eosinophils (%) (Auto) 12 % (0-3) Basophils (%) (Auto) 2 % (0-3) Neutrophils # (Auto) 1.3 x10^3uL (1.8-7.7) Lymphocytes # (Auto) 1.9 x10^3/uL (1.0-4.8) Monocytes # (Auto) 0.4 x10^3/uL (0.0-1.1) Eosinophils # (Auto) 0.5 x10^3/uL (0.0-0.7) Basophils # (Auto) 0.1 x10^3/uL (0.0-0.2) Test 04/12/17 07:23 04/12/17 11:17 Glucose (Fingerstick) 71 mg/dL (70-99) 108 mg/dL (70-99) Review of Systems Review of Systems c/o pain c/o hunger Assessment and Plan Assessmemt and Plan Problems Medical Problems: (1) Anemia Status: Acute (2) ESRD (end stage renal disease) Status: Acute (3) Hyperkalemia Status: Acute Hyperkalemia secondary to ESRD Hypertension 1. Pain control: acetaminophen 650 mg PO q6hrs prn for pain 2. HD per Dr. Morales, appreciate input 3. Monitor I/Os 4. Recheck labs 5. PT/OT 6. Continue home meds 7. Discharge when okay with nephrology Problems: Comment Review of Relevant I have reviewed the following items carmela (where applicable) has been applied. Labs Laboratory Tests Test 04/10/17 16:09 04/10/17 18:00 04/10/17 21:21 04/11/17 07:01 Glucose (Fingerstick) 98 mg/dL (70-99) 150 mg/dL (70-99) 82 mg/dL (70-99) Sodium Level 137 mmol/L (136-145) Potassium Level 6.1 mmol/L (3.5-5.1) Chloride Level 107 mmol/L (98-107) Carbon Dioxide Level 18 mmol/L (21-32) Anion Gap 12 (6-14) Blood Urea Nitrogen 73 mg/dL (8-26) Creatinine 5.0 mg/dL (0.7-1.3) Estimated GFR (Cockcroft-Gault) 11.7 Glucose Level 161 mg/dL (70-99) Calcium Level 7.8 mg/dL (8.5-10.1) Test 04/11/17 09:20 04/11/17 11:49 04/11/17 16:43 04/11/17 20:56 White Blood Count 4.1 x10^3/uL (4.0-11.0) Red Blood Count 2.58 x10^6/uL (4.30-5.70) Hemoglobin 7.5 g/dL (13.0-17.5) Hematocrit 22.3 % (39.0-53.0) Mean Corpuscular Volume 86 fL (79-100) Mean Corpuscular Hemoglobin 29 pg (25-35) Mean Corpuscular Hemoglobin Concent 34 g/dL (31-37) Red Cell Distribution Width 15.2 % (11.5-14.5) Platelet Count 58 x10^3/uL (140-400) Neutrophils (%) (Auto) 45 % (31-73) Lymphocytes (%) (Auto) 35 % (24-48) Monocytes (%) (Auto) 8 % (0-9) Eosinophils (%) (Auto) 10 % (0-3) Basophils (%) (Auto) 1 % (0-3) Neutrophils # (Auto) 1.9 x10^3uL (1.8-7.7) Lymphocytes # (Auto) 1.4 x10^3/uL (1.0-4.8) Monocytes # (Auto) 0.3 x10^3/uL (0.0-1.1) Eosinophils # (Auto) 0.4 x10^3/uL (0.0-0.7) Basophils # (Auto) 0.0 x10^3/uL (0.0-0.2) Sodium Level 139 mmol/L (136-145) Potassium Level 5.4 mmol/L (3.5-5.1) Chloride Level 107 mmol/L (98-107) Carbon Dioxide Level 26 mmol/L (21-32) Anion Gap 6 (6-14) Blood Urea Nitrogen 50 mg/dL (8-26) Creatinine 4.2 mg/dL (0.7-1.3) Estimated GFR (Cockcroft-Gault) 14.4 Glucose Level 125 mg/dL (70-99) Calcium Level 8.1 mg/dL (8.5-10.1) Glucose (Fingerstick) 126 mg/dL (70-99) 123 mg/dL (70-99) 164 mg/dL (70-99) Test 04/12/17 04:23 04/12/17 04:42 04/12/17 07:23 04/12/17 11:17 Sodium Level 141 mmol/L (136-145) Potassium Level 5.1 mmol/L (3.5-5.1) Chloride Level 109 mmol/L (98-107) Carbon Dioxide Level 26 mmol/L (21-32) Anion Gap 6 (6-14) Blood Urea Nitrogen 52 mg/dL (8-26) Creatinine 4.6 mg/dL (0.7-1.3) Estimated GFR (Cockcroft-Gault) 12.9 Glucose Level 76 mg/dL (70-99) Calcium Level 7.9 mg/dL (8.5-10.1) White Blood Count 4.2 x10^3/uL (4.0-11.0) Red Blood Count 2.55 x10^6/uL (4.30-5.70) Hemoglobin 7.4 g/dL (13.0-17.5) Hematocrit 22.3 % (39.0-53.0) Mean Corpuscular Volume 87 fL (79-100) Mean Corpuscular Hemoglobin 29 pg (25-35) Mean Corpuscular Hemoglobin Concent 33 g/dL (31-37) Red Cell Distribution Width 15.3 % (11.5-14.5) Platelet Count 56 x10^3/uL (140-400) Neutrophils (%) (Auto) 32 % (31-73) Lymphocytes (%) (Auto) 45 % (24-48) Monocytes (%) (Auto) 9 % (0-9) Eosinophils (%) (Auto) 12 % (0-3) Basophils (%) (Auto) 2 % (0-3) Neutrophils # (Auto) 1.3 x10^3uL (1.8-7.7) Lymphocytes # (Auto) 1.9 x10^3/uL (1.0-4.8) Monocytes # (Auto) 0.4 x10^3/uL (0.0-1.1) Eosinophils # (Auto) 0.5 x10^3/uL (0.0-0.7) Basophils # (Auto) 0.1 x10^3/uL (0.0-0.2) Glucose (Fingerstick) 71 mg/dL (70-99) 108 mg/dL (70-99) Laboratory Tests Test 04/11/17 16:43 04/11/17 20:56 04/12/17 04:23 04/12/17 04:42 Glucose (Fingerstick) 123 mg/dL (70-99) 164 mg/dL (70-99) Sodium Level 141 mmol/L (136-145) Potassium Level 5.1 mmol/L (3.5-5.1) Chloride Level 109 mmol/L (98-107) Carbon Dioxide Level 26 mmol/L (21-32) Anion Gap 6 (6-14) Blood Urea Nitrogen 52 mg/dL (8-26) Creatinine 4.6 mg/dL (0.7-1.3) Estimated GFR (Cockcroft-Gault) 12.9 Glucose Level 76 mg/dL (70-99) Calcium Level 7.9 mg/dL (8.5-10.1) White Blood Count 4.2 x10^3/uL (4.0-11.0) Red Blood Count 2.55 x10^6/uL (4.30-5.70) Hemoglobin 7.4 g/dL (13.0-17.5) Hematocrit 22.3 % (39.0-53.0) Mean Corpuscular Volume 87 fL (79-100) Mean Corpuscular Hemoglobin 29 pg (25-35) Mean Corpuscular Hemoglobin Concent 33 g/dL (31-37) Red Cell Distribution Width 15.3 % (11.5-14.5) Platelet Count 56 x10^3/uL (140-400) Neutrophils (%) (Auto) 32 % (31-73) Lymphocytes (%) (Auto) 45 % (24-48) Monocytes (%) (Auto) 9 % (0-9) Eosinophils (%) (Auto) 12 % (0-3) Basophils (%) (Auto) 2 % (0-3) Neutrophils # (Auto) 1.3 x10^3uL (1.8-7.7) Lymphocytes # (Auto) 1.9 x10^3/uL (1.0-4.8) Monocytes # (Auto) 0.4 x10^3/uL (0.0-1.1) Eosinophils # (Auto) 0.5 x10^3/uL (0.0-0.7) Basophils # (Auto) 0.1 x10^3/uL (0.0-0.2) Test 04/12/17 07:23 04/12/17 11:17 Glucose (Fingerstick) 71 mg/dL (70-99) 108 mg/dL (70-99) Medications Current Medications Sodium Chloride 1,000 ml @ 100 mls/hr Q10H IV Last administered on 04/10/17 12:48; Start 04/10/17 at 02:00; Stop 04/11/17 at 01:59; Status DC Amlodipine Besylate (Norvasc) 10 mg DAILY PO Last administered on 04/12/17 09: 19; Start 04/10/17 at 13:00 Divalproex Sodium (Depakote) 500 mg BID PO Last administered on 04/12/17 09:19 ; Start 04/10/17 at 13:00 Furosemide (Lasix) 40 mg DAILY PO Last administered on 04/12/17 09:19; Start 04/10/17 at 13:00 Insulin Aspart (NovoLOG) 10 units TIDAC SQ ; Start 04/10/17 at 16:30 Trimethoprim/ Sulfamethoxazole (Bactrim Ds) 1 tab BID PO Last administered on 12:47; Start 04/10/17 at 13:00; Stop 04/10/17 at 17:27; Status DC Tamsulosin HCl (Flomax) 0.4 mg DAILY PO Last administered on 04/12/17 09:19; Start 04/10/17 at 13:00 Insulin Detemir (Levemir) 5 units BID SQ Last administered on 04/11/17 20:59; Start 04/10/17 at 21:00 Sodium Chloride 1,000 ml @ 1,000 mls/hr Q1H PRN IV hypotension; Start 04/10/17 at 18:36; Stop 04/11/17 at 00:35; Status DC Sodium Chloride (Normal Saline Flush) 10 ml 1X PRN PRN IV AP catheter pack; Start 04/10/17 at 18:45; Stop 04/11/17 at 18:44; Status DC Sodium Chloride (Normal Saline Flush) 10 ml 1X PRN PRN IV HEEL SORTER catheter pack; Start 04/10/17 at 18:45; Stop 04/11/17 at 18:44; Status DC Info (PHARMACY MONITORING -- do not chart) 1 each PRN DAILY PRN MC SEE COMMENTS ; Start 04/10/17 at 18:45 Acetaminophen (Tylenol) 650 mg PRN Q6HRS PRN PO pain Last administered on 15:06; Start 04/11/17 at 15:00 Active Scripts Active Reported Zofran Odt (Ondansetron) 4 Mg Tab.rapdis 1 Tab SL Q6HRS Tamsulosin Hcl 0.4 Mg Cap.er.24h 0.4 Mg PO DAILY Norvasc (Amlodipine Besylate) 10 Mg Tablet 10 Mg PO DAILY Metformin Hcl 500 Mg Tablet 500 Mg PO BIDWMEALS Humulin R (Insulin Regular, Human) 100 Unit/1 Ml Vial 100 Unit IJ Humulin N (Nph, Human Insulin Isophane) 100 Unit/1 Ml Vial 5 Unit SQ BID Furosemide 40 Mg Tablet 1 Tab PO DAILY Depakote (Divalproex Sodium) 500 Mg Tablet. 1 Tab PO BID Bactrim Ds Tablet (Sulfamethoxazole/Trimethoprim) 1 Each Tablet 1 Tab PO BID Vitals/I & O Vital Sign - Last 24 Hours 04/11/17 04/11/17 04/11/17 04/12/17 14:55 19:00 23:00 07:00 Temp 98.1 98.2 98.5 97.9 98.1 98.2 98.5 97.9 Pulse 67 65 63 67 Resp 16 20 20 18 B/P (MAP) 130/90 (103) 134/65 (88) 140/69 (92) 136/62 (86) Pulse Ox 96 94 94 96 O2 Delivery Room Air Room Air Room Air Room Air 04/12/17 04/12/17 09:19 10:39 Temp 97.7 97.7 Pulse 67 63 Resp 18 B/P (MAP) 136/62 152/66 (94) Pulse Ox 94 O2 Delivery Room Air Intake and Output 04/11/17 04/11/17 04/12/17 15:00 23:00 07:00 Intake Total 600 ml 1500 ml 480 ml Output Total 1250 ml Balance 600 ml 250 ml 480 ml MARGUERITE JOHNSON III DO Apr 12, 2017 12:10
--- NOTE | 2017-04-12 14:20 | PDOC ---
Dialysis Progress Note Dialysis Note Dialysis Note Seen on Hemodialysis, tolerating treatment Well Vitals on Hemodialysis : 158/76 67 98.2 General Appearance: Awake: Alert Oriented x 3 Neck: No JVD or JVP Chest: CTA Juni Heart: S1 S2 Abdomen - Soft NTND Extremities - No Edema ESRD: Dialysis as below F 180 NR 3.5 Hrs 2 K 2.5 Ca 140 Na 35 HC03 Qb 350 + Qd 500+ Heparin 0 Units Uf 2-3 Kgs or to dry weight as tolerated May give 25-50 gms of 25% Albumin if needed to maintain Hemodynamic stability Treatment plan reviewed and discussed with sheriffs detective Vitals Vital Signs Vital Signs Date Time Temp Pulse Resp B/P (MAP) Pulse Ox O2 Delivery O2 Flow Rate FiO2 04/12/17 10:39 97.7 63 18 152/66 (94) 94 Room Air 97.7 Labs Last Labs Laboratory Tests Test 04/10/17 16:09 04/10/17 18:00 04/10/17 21:21 04/11/17 07:01 Glucose (Fingerstick) 98 mg/dL (70-99) 150 mg/dL (70-99) 82 mg/dL (70-99) Sodium Level 137 mmol/L (136-145) Potassium Level 6.1 mmol/L (3.5-5.1) Chloride Level 107 mmol/L (98-107) Carbon Dioxide Level 18 mmol/L (21-32) Anion Gap 12 (6-14) Blood Urea Nitrogen 73 mg/dL (8-26) Creatinine 5.0 mg/dL (0.7-1.3) Estimated GFR (Cockcroft-Gault) 11.7 Glucose Level 161 mg/dL (70-99) Calcium Level 7.8 mg/dL (8.5-10.1) Test 04/11/17 09:20 04/11/17 11:49 04/11/17 16:43 04/11/17 20:56 White Blood Count 4.1 x10^3/uL (4.0-11.0) Red Blood Count 2.58 x10^6/uL (4.30-5.70) Hemoglobin 7.5 g/dL (13.0-17.5) Hematocrit 22.3 % (39.0-53.0) Mean Corpuscular Volume 86 fL (79-100) Mean Corpuscular Hemoglobin 29 pg (25-35) Mean Corpuscular Hemoglobin Concent 34 g/dL (31-37) Red Cell Distribution Width 15.2 % (11.5-14.5) Platelet Count 58 x10^3/uL (140-400) Neutrophils (%) (Auto) 45 % (31-73) Lymphocytes (%) (Auto) 35 % (24-48) Monocytes (%) (Auto) 8 % (0-9) Eosinophils (%) (Auto) 10 % (0-3) Basophils (%) (Auto) 1 % (0-3) Neutrophils # (Auto) 1.9 x10^3uL (1.8-7.7) Lymphocytes # (Auto) 1.4 x10^3/uL (1.0-4.8) Monocytes # (Auto) 0.3 x10^3/uL (0.0-1.1) Eosinophils # (Auto) 0.4 x10^3/uL (0.0-0.7) Basophils # (Auto) 0.0 x10^3/uL (0.0-0.2) Sodium Level 139 mmol/L (136-145) Potassium Level 5.4 mmol/L (3.5-5.1) Chloride Level 107 mmol/L (98-107) Carbon Dioxide Level 26 mmol/L (21-32) Anion Gap 6 (6-14) Blood Urea Nitrogen 50 mg/dL (8-26) Creatinine 4.2 mg/dL (0.7-1.3) Estimated GFR (Cockcroft-Gault) 14.4 Glucose Level 125 mg/dL (70-99) Calcium Level 8.1 mg/dL (8.5-10.1) Glucose (Fingerstick) 126 mg/dL (70-99) 123 mg/dL (70-99) 164 mg/dL (70-99) Test 04/12/17 04:23 04/12/17 04:42 04/12/17 07:23 04/12/17 11:17 Sodium Level 141 mmol/L (136-145) Potassium Level 5.1 mmol/L (3.5-5.1) Chloride Level 109 mmol/L (98-107) Carbon Dioxide Level 26 mmol/L (21-32) Anion Gap 6 (6-14) Blood Urea Nitrogen 52 mg/dL (8-26) Creatinine 4.6 mg/dL (0.7-1.3) Estimated GFR (Cockcroft-Gault) 12.9 Glucose Level 76 mg/dL (70-99) Calcium Level 7.9 mg/dL (8.5-10.1) White Blood Count 4.2 x10^3/uL (4.0-11.0) Red Blood Count 2.55 x10^6/uL (4.30-5.70) Hemoglobin 7.4 g/dL (13.0-17.5) Hematocrit 22.3 % (39.0-53.0) Mean Corpuscular Volume 87 fL (79-100) Mean Corpuscular Hemoglobin 29 pg (25-35) Mean Corpuscular Hemoglobin Concent 33 g/dL (31-37) Red Cell Distribution Width 15.3 % (11.5-14.5) Platelet Count 56 x10^3/uL (140-400) Neutrophils (%) (Auto) 32 % (31-73) Lymphocytes (%) (Auto) 45 % (24-48) Monocytes (%) (Auto) 9 % (0-9) Eosinophils (%) (Auto) 12 % (0-3) Basophils (%) (Auto) 2 % (0-3) Neutrophils # (Auto) 1.3 x10^3uL (1.8-7.7) Lymphocytes # (Auto) 1.9 x10^3/uL (1.0-4.8) Monocytes # (Auto) 0.4 x10^3/uL (0.0-1.1) Eosinophils # (Auto) 0.5 x10^3/uL (0.0-0.7) Basophils # (Auto) 0.1 x10^3/uL (0.0-0.2) Glucose (Fingerstick) 71 mg/dL (70-99) 108 mg/dL (70-99) Laboratory Tests Test 04/11/17 16:43 04/11/17 20:56 04/12/17 04:23 04/12/17 04:42 Glucose (Fingerstick) 123 mg/dL (70-99) 164 mg/dL (70-99) Sodium Level 141 mmol/L (136-145) Potassium Level 5.1 mmol/L (3.5-5.1) Chloride Level 109 mmol/L (98-107) Carbon Dioxide Level 26 mmol/L (21-32) Anion Gap 6 (6-14) Blood Urea Nitrogen 52 mg/dL (8-26) Creatinine 4.6 mg/dL (0.7-1.3) Estimated GFR (Cockcroft-Gault) 12.9 Glucose Level 76 mg/dL (70-99) Calcium Level 7.9 mg/dL (8.5-10.1) White Blood Count 4.2 x10^3/uL (4.0-11.0) Red Blood Count 2.55 x10^6/uL (4.30-5.70) Hemoglobin 7.4 g/dL (13.0-17.5) Hematocrit 22.3 % (39.0-53.0) Mean Corpuscular Volume 87 fL (79-100) Mean Corpuscular Hemoglobin 29 pg (25-35) Mean Corpuscular Hemoglobin Concent 33 g/dL (31-37) Red Cell Distribution Width 15.3 % (11.5-14.5) Platelet Count 56 x10^3/uL (140-400) Neutrophils (%) (Auto) 32 % (31-73) Lymphocytes (%) (Auto) 45 % (24-48) Monocytes (%) (Auto) 9 % (0-9) Eosinophils (%) (Auto) 12 % (0-3) Basophils (%) (Auto) 2 % (0-3) Neutrophils # (Auto) 1.3 x10^3uL (1.8-7.7) Lymphocytes # (Auto) 1.9 x10^3/uL (1.0-4.8) Monocytes # (Auto) 0.4 x10^3/uL (0.0-1.1) Eosinophils # (Auto) 0.5 x10^3/uL (0.0-0.7) Basophils # (Auto) 0.1 x10^3/uL (0.0-0.2) Test 04/12/17 07:23 04/12/17 11:17 Glucose (Fingerstick) 71 mg/dL (70-99) 108 mg/dL (70-99) Assessment Assessment Problems Medical Problems: (1) Anemia Status: Acute (2) ESRD (end stage renal disease) Status: Acute (3) Hyperkalemia Status: Acute Problems: Plan Plan of Care Problems Medical Problems: (1) Anemia Status: Acute (2) ESRD (end stage renal disease) Status: Acute (3) Hyperkalemia Status: Acute KARENA CARR MD Apr 12, 2017 14:20
[2017-04-12] MEDS ORDERED: IV NORMAL SALINE 1000ML BAG 1,000 ML IV PRN (14:47)
[2017-04-12] MEDS ORDERED: DIALYSIS PATIENT. MC PRN (15:00)
[2017-04-12 19:00] VITALS: BP 139/62
[2017-04-12] MEDS ORDERED: DARBEPOETIN ALFA 60 MCG/0.3 ML DISP.SYRIN. SQ SCH (21:00)
[2017-04-12 23:00] VITALS: BP 147/62
[2017-04-13] VITALS (11 sets, daily range): BP systolic 123–145; BP diastolic 55–66
--- NOTE | 2017-04-13 | ACF ---
Admission Forms Criteria HYPONATREMIA; HYPERNATREMIA; HYPOKALEMIA; HYPERKALEMIA; HYPOCALCEMIA; HYPERCALCEMIA Clinical Indications for Inpatient Care (Place 'X' for any and all applicable criteria): Ongoing inpatient care may be indicated for ANY ONE of the following [G](1)(2)(3 )(5): [ ]I. Hyponatremia with ANY ONE of the following: [ ]a) Sodium less than 130 mEq/L (mmol/L) (new) (6)(22) [ ]b) Sodium less than 135 mEq/L (mmol/L) with ANY ONE of the following: [ ]i) Severe medical etiology requiring inpatient management (eg, heart failure, hypovolemia) [ ]ii) Altered mental status [ ]iii) Seizures [ ]II. Hypernatremia with ANY ONE of the following: [ ]a) Sodium greater than 155 mEq/L (mmol/L) [ ]b) Sodium greater than 150 mEq/L (mmol/L) with ANY ONE of the following: [ ] i) Altered mental status [ ]ii) Seizures [ ]iii) Severe medical etiology (eg, hypovolemia, diabetes insipidus) [ ]iv) Severe weakness [ ]v) Severe medical etiology (eg, hemolysis, infection, drug overdose) [ ]III. Hypokalemia with ANY ONE of the following: [ ]a) Potassium less than 2.5 mEq/L (mmol/L) despite outpatient and emergency treatment [ ]b) Potassium less than 3.0 mEq/L (mmol/L) with ANY ONE of the following: [ ]i) Weakness [ ]ii) Cardiac abnormality (eg, arrhythmia, conduction disturbance) [ ]iii) Cardiac ischemia [ ]iv) Ileus [ ]v) Ongoing medical cause requiring inpatient management. ( e.g., acute renal wasting, SIADH) [ ]vi) Other severe symptoms [X] IV. Hyperkalemia with ANY ONE of the following: [ ]a) Potassium greater than 6.5 mEq/L (mmol/L) [X]b) Potassium greater than 5 mEq/L (mmol/L) with ANY ONE of the following: [ ]i) Severe ECG findings [H] [X]ii) Acute worsening of renal failure (creatinine greater than 2.5 mg/dL (221 micromoles/L) or significant elevation for age and size) [ ] V. Hypocalcemia with ANY ONE of the following: [ ]a) Calcium less than 7 mg/dL (1.75 mmol/L) despite outpatient and emergency treatment(19) [ ]b) Calcium less than 8 mg/dL (2 mmol/L) with significant symptoms or findings; examples include: [ ]i) Cardiac abnormality (eg, arrhythmia or conduction disturbance) [ ]ii) Altered mental status [ ]iii) Seizures [ ]iv) Breathing difficulty [ ]v) Muscle spasms [ ]. Hypercalcemia with ANY ONE of the following: [ ]a) Calcium greater than 14 mg/dL (3.5 mmol/L) [ ]b) Calcium greater than 12 mg/dL (3 mmol/L) with ANY ONE of the following: [ ]i) Significant dehydration or hypovolemia as indicated by ANY ONE of the following(2): [ ]1. Clinically significant dehydration as indicated by ANY ONE of the following: [ ]A. Acute loss of weight from baseline (5% of body weight in adults, 9% in pediatric patients) [ ]B. Hemodynamic instability [ ]C. Acute renal failure [ ]D. Serum sodium greater than 150 mEq/L (mmol/L) [ ]2) Dehydration that is persistent indicated by ALL of the following: [ ]A. Oral rehydration therapy not tolerated or insufficient to adequately correct dehydration [ ]B. Appropriate intravenous treatment (eg, fluids ) does not readily correct dehydration ie, after 12 to 24 hours of treatment) [ ]ii) Significant symptoms or findings; examples include: [ ]1) Altered mental status [ ]2) Cardiac abnormality (eg, arrhythmia, conduction disturbance) [ ]3) Cardiac abnormality (eg, arrhythmia, conduction disturbance) The original [facility] content created by [employer] [email or web address] has been revised. The portions of the content which have been revised are identified through the use of italic text or in bold, and [facility] has neither reviewed nor approved the modified material. All other unmodified content is copyright [facility] Please see references footnoted in the original [facility] [employer] edition 2016 Admission Criteria Met?: Yes CHERY HESTER Apr 13, 2017 00:00
[2017-04-13 04:08] LABS: BASO # 0.1 x10^3/uL (0.0-0.2); BASO % 1 % (0-3); EOS % 13 % (0-3); HEMATOCRIT 23.5 % (39.0-53.0); HEMOGLOBIN 7.9 g/dL (13.0-17.5); LYMPH # 1.9 x10^3/uL (1.0-4.8); LYMPH % 43 % (24-48); MEAN CORPUSCULAR HEMOGLOBIN 29 pg (25-35); MEAN CORPUSCULAR HGB CONC 34 g/dL (31-37); MEAN CORPUSCULAR VOLUME 87 fL (79-100); MONO % 10 % (0-9); NEUT % 33 % (31-73); PLATELET COUNT 64 x10^3/uL (140-400); RED BLOOD COUNT 2.71 x10^6/uL (4.30-5.70); RED CELL DISTRIBUTION WIDTH 15.2 % (11.5-14.5); WHITE BLOOD COUNT 4.6 x10^3/uL (4.0-11.0)
[2017-04-13 04:25] LABS: CALCIUM 8.2 mg/dL (8.5-10.1); GFR 21.2; POTASSIUM 4.1 mmol/L (3.5-5.1)
[2017-04-13] MEDS: INSULIN ASPART 300 UNITS/3 ML INSULN.PEN SQ SCH ×3 (07:30→16:30)
[2017-04-13] MEDS: FUROSEMIDE 40 MG TABLET. PO SCH (09:00)
[2017-04-13] MEDS: amLODIPine BESYLATE 10 MG TABLET PO SCH (09:00)
[2017-04-13] MEDS: INSULIN DETEMIR 300 UNITS/3 ML INSULN.PEN. SQ SCH ×2 (09:00→21:00)
[2017-04-13] MEDS: TAMSULOSIN 0.4 MG CAP.ER.24H. PO SCH (09:00)
[2017-04-13] MEDS: DIVALPROEX DELAYED RELEASE 500 MG TABLET.DR. PO SCH ×2 (09:00→21:28)
[2017-04-13] MEDS ORDERED: ONDANSETRON PF 4 MG/2 ML VIAL. IV PRN (10:15)
--- NOTE | 2017-04-13 13:13 | PDOC ---
SUBJECTIVE ROS esrd FEELING A LITTLE BETTER TODAY CVS: no Orthopnea, no CP RESP: no SOB, no HANNON GI: no Nausea, no Vomiting : no Dysuria, no Urgency OBJECTIVE Vital Signs Vital Signs Date Time Temp Pulse Resp B/P (MAP) Pulse Ox O2 Delivery O2 Flow Rate FiO2 04/13/17 10:54 97.5 86 16 123/56 (78) 93 Room Air 97.5 I & 0 Intake and Output 04/14/17 07:00 Intake Total 600 ml Balance 600 ml Intake Oral 600 ml PHYSICAL EXAM Physical Exam GEN: Awake, Oriented x 3, In no distress EYES: Vision Unchanged, Conjunctiva Normal EN: No EN Drainage, Mucous Membranes moist NECK: no JVD, no JVP, Supple, no Thyromegaly CVS: S1S2, no Murmur, No Gallop, No Rub,no Edema RESP: no Rales, no Rhonchi,no Acc. Muscle Use GI: BS + ve, NO Bruit, Non Tender, Non Distended : no CVA tenderness, no Suprapubic Tenderness DIAGNOSIS/ASSESSMENT Assessment & Plan ESRD: Current fluid and E-lyte status does not necessitate emergent need for dialysis. Will re-evaluate for dialysis in the am and continue on MWF schedule. ANEMIA; Aranap as ordered, Transfuse with next HD as needed HTN: Current BP meds as reviewed. See orders for changes. BONE & MINERAL: follow hos and add binders prn Discussed Plan of Care with pt at bedside - OK to D/c From Renal standpoint Problems: COMMENT/RELEVANT DATA Meds Current Medications Medications (Trade) Dose Ordered Sig/Shaheen Start Time Stop Time Status Last Admin Dose Admin Acetaminophen (Tylenol) 650 mg PRN Q6HRS PRN 04/11/17 15:00 04/11/17 15:06 650 MG Amlodipine Besylate (Norvasc) 10 mg DAILY 04/10/17 13:00 04/12/17 09:19 10 MG Darbepoetin Jamie (Aranesp) 60 mcg WEEKLYHS 04/12/17 21:00 04/12/17 20:43 60 MCG Divalproex Sodium (Depakote) 500 mg BID 04/10/17 13:00 04/12/17 20:43 500 MG Furosemide (Lasix) 40 mg DAILY 04/10/17 13:00 04/12/17 09:19 40 MG Info (PHARMACY MONITORING -- do not chart) 1 each PRN DAILY PRN 04/12/17 15:00 UNV Insulin Aspart (NovoLOG) 10 units TIDAC 04/10/17 16:30 Insulin Detemir (Levemir) 5 units BID 04/10/17 21:00 04/12/17 20:50 5 UNITS Ondansetron HCl (Zofran) 4 mg PRN Q6HRS PRN 04/13/17 10:15 Sodium Chloride 1,000 ml @ 1,000 mls/hr Q1H PRN 04/12/17 14:47 04/12/17 20:46 DC Sodium Chloride (Normal Saline Flush) 10 ml 1X PRN PRN 04/10/17 18:45 04/11/17 18:44 DC Tamsulosin HCl (Flomax) 0.4 mg DAILY 04/10/17 13:00 04/12/17 09:19 0.4 MG Trimethoprim/ Sulfamethoxazole (Bactrim Ds) 1 tab BID 04/10/17 13:00 04/10/17 17:27 DC 04/10/17 12:47 1 TAB Lab Laboratory Tests Test 04/12/17 17:42 04/12/17 20:44 04/13/17 03:50 04/13/17 07:34 Glucose (Fingerstick) 101 mg/dL (70-99) 188 mg/dL (70-99) 89 mg/dL (70-99) White Blood Count 4.6 x10^3/uL (4.0-11.0) Red Blood Count 2.71 x10^6/uL (4.30-5.70) Hemoglobin 7.9 g/dL (13.0-17.5) Hematocrit 23.5 % (39.0-53.0) Mean Corpuscular Volume 87 fL (79-100) Mean Corpuscular Hemoglobin 29 pg (25-35) Mean Corpuscular Hemoglobin Concent 34 g/dL (31-37) Red Cell Distribution Width 15.2 % (11.5-14.5) Platelet Count 64 x10^3/uL (140-400) Neutrophils (%) (Auto) 33 % (31-73) Lymphocytes (%) (Auto) 43 % (24-48) Monocytes (%) (Auto) 10 % (0-9) Eosinophils (%) (Auto) 13 % (0-3) Basophils (%) (Auto) 1 % (0-3) Neutrophils # (Auto) 1.5 x10^3uL (1.8-7.7) Lymphocytes # (Auto) 1.9 x10^3/uL (1.0-4.8) Monocytes # (Auto) 0.4 x10^3/uL (0.0-1.1) Eosinophils # (Auto) 0.6 x10^3/uL (0.0-0.7) Basophils # (Auto) 0.1 x10^3/uL (0.0-0.2) Sodium Level 142 mmol/L (136-145) Potassium Level 4.1 mmol/L (3.5-5.1) Chloride Level 106 mmol/L (98-107) Carbon Dioxide Level 30 mmol/L (21-32) Anion Gap 6 (6-14) Blood Urea Nitrogen 25 mg/dL (8-26) Creatinine 3.0 mg/dL (0.7-1.3) Estimated GFR (Cockcroft-Gault) 21.2 Glucose Level 98 mg/dL (70-99) Calcium Level 8.2 mg/dL (8.5-10.1) Test 04/13/17 10:25 Glucose (Fingerstick) 137 mg/dL (70-99) KARENA CARR MD Apr 13, 2017 13:13
--- NOTE | 2017-04-13 13:40 | PDOC ---
PROGRESS NOTES Chief Complaint Chief Complaint Hyperkalemia secondary to end stage renal disease PMH: End stage renal disease htn DM hld History of Present Illness History of Present Illness Pt sitting up in bed, complains of nausea. Pt had HD yesterday. Two correction officers in the patient's room with him. Labs:Hgb 7.9 will transfuse 2 units of blood, orders entered. EKG changes: slightly peaked T waves V3, V4 noted. Nasal MRSA culture negative Vitals Vitals Vital Signs Date Time Temp Pulse Resp B/P (MAP) Pulse Ox O2 Delivery O2 Flow Rate FiO2 04/13/17 10:54 97.5 86 16 123/56 (78) 93 Room Air 97.5 Physical Exam General: Alert, Oriented X3, Cooperative, No acute distress Heart: Regular rate, Normal S1, Normal S2 Lungs: Clear, Other (no wheezing, no crackles) Abdomen: Soft, No tenderness, No hepatosplenomegaly Extremities: No clubbing, No cyanosis, Other (1-2+ LE edema, b/l) Skin: No rashes, No significant lesion Labs LABS Laboratory Tests Test 04/12/17 17:42 04/12/17 20:44 04/13/17 03:50 04/13/17 07:34 Glucose (Fingerstick) 101 mg/dL (70-99) 188 mg/dL (70-99) 89 mg/dL (70-99) White Blood Count 4.6 x10^3/uL (4.0-11.0) Red Blood Count 2.71 x10^6/uL (4.30-5.70) Hemoglobin 7.9 g/dL (13.0-17.5) Hematocrit 23.5 % (39.0-53.0) Mean Corpuscular Volume 87 fL (79-100) Mean Corpuscular Hemoglobin 29 pg (25-35) Mean Corpuscular Hemoglobin Concent 34 g/dL (31-37) Red Cell Distribution Width 15.2 % (11.5-14.5) Platelet Count 64 x10^3/uL (140-400) Neutrophils (%) (Auto) 33 % (31-73) Lymphocytes (%) (Auto) 43 % (24-48) Monocytes (%) (Auto) 10 % (0-9) Eosinophils (%) (Auto) 13 % (0-3) Basophils (%) (Auto) 1 % (0-3) Neutrophils # (Auto) 1.5 x10^3uL (1.8-7.7) Lymphocytes # (Auto) 1.9 x10^3/uL (1.0-4.8) Monocytes # (Auto) 0.4 x10^3/uL (0.0-1.1) Eosinophils # (Auto) 0.6 x10^3/uL (0.0-0.7) Basophils # (Auto) 0.1 x10^3/uL (0.0-0.2) Sodium Level 142 mmol/L (136-145) Potassium Level 4.1 mmol/L (3.5-5.1) Chloride Level 106 mmol/L (98-107) Carbon Dioxide Level 30 mmol/L (21-32) Anion Gap 6 (6-14) Blood Urea Nitrogen 25 mg/dL (8-26) Creatinine 3.0 mg/dL (0.7-1.3) Estimated GFR (Cockcroft-Gault) 21.2 Glucose Level 98 mg/dL (70-99) Calcium Level 8.2 mg/dL (8.5-10.1) Test 04/13/17 10:25 Glucose (Fingerstick) 137 mg/dL (70-99) Review of Systems Review of Systems Nausea abd pain Assessment and Plan Assessmemt and Plan Problems Medical Problems: (1) Anemia Status: Acute (2) ESRD (end stage renal disease) Status: Acute (3) Hyperkalemia Status: Acute Hyperkalemia secondary to ESRD Hypertension Nausea 1. Zofran 4 mg IV q 6 hrs prn for nausea 2. Anemia: Hbg 7.9, transfuse 2 units of blood, order set entered 3. HD per Dr. Morales, appreciate input 4. Monitor I/Os 5. Recheck labs 6. Continue pain control: acetaminophen 650 mg PO q6hrs prn for pain 7. Continue PT/OT 8. Continue home meds 9. Discharge when okay with nephrology Problems: Comment Review of Relevant I have reviewed the following items carmela (where applicable) has been applied. Labs Laboratory Tests Test 04/11/17 16:43 04/11/17 20:56 04/12/17 04:23 04/12/17 04:42 Glucose (Fingerstick) 123 mg/dL (70-99) 164 mg/dL (70-99) Sodium Level 141 mmol/L (136-145) Potassium Level 5.1 mmol/L (3.5-5.1) Chloride Level 109 mmol/L (98-107) Carbon Dioxide Level 26 mmol/L (21-32) Anion Gap 6 (6-14) Blood Urea Nitrogen 52 mg/dL (8-26) Creatinine 4.6 mg/dL (0.7-1.3) Estimated GFR (Cockcroft-Gault) 12.9 Glucose Level 76 mg/dL (70-99) Calcium Level 7.9 mg/dL (8.5-10.1) White Blood Count 4.2 x10^3/uL (4.0-11.0) Red Blood Count 2.55 x10^6/uL (4.30-5.70) Hemoglobin 7.4 g/dL (13.0-17.5) Hematocrit 22.3 % (39.0-53.0) Mean Corpuscular Volume 87 fL (79-100) Mean Corpuscular Hemoglobin 29 pg (25-35) Mean Corpuscular Hemoglobin Concent 33 g/dL (31-37) Red Cell Distribution Width 15.3 % (11.5-14.5) Platelet Count 56 x10^3/uL (140-400) Neutrophils (%) (Auto) 32 % (31-73) Lymphocytes (%) (Auto) 45 % (24-48) Monocytes (%) (Auto) 9 % (0-9) Eosinophils (%) (Auto) 12 % (0-3) Basophils (%) (Auto) 2 % (0-3) Neutrophils # (Auto) 1.3 x10^3uL (1.8-7.7) Lymphocytes # (Auto) 1.9 x10^3/uL (1.0-4.8) Monocytes # (Auto) 0.4 x10^3/uL (0.0-1.1) Eosinophils # (Auto) 0.5 x10^3/uL (0.0-0.7) Basophils # (Auto) 0.1 x10^3/uL (0.0-0.2) Test 04/12/17 07:23 04/12/17 11:17 04/12/17 17:42 04/12/17 20:44 Glucose (Fingerstick) 71 mg/dL (70-99) 108 mg/dL (70-99) 101 mg/dL (70-99) 188 mg/dL (70-99) Test 04/13/17 03:50 04/13/17 07:34 04/13/17 10:25 White Blood Count 4.6 x10^3/uL (4.0-11.0) Red Blood Count 2.71 x10^6/uL (4.30-5.70) Hemoglobin 7.9 g/dL (13.0-17.5) Hematocrit 23.5 % (39.0-53.0) Mean Corpuscular Volume 87 fL (79-100) Mean Corpuscular Hemoglobin 29 pg (25-35) Mean Corpuscular Hemoglobin Concent 34 g/dL (31-37) Red Cell Distribution Width 15.2 % (11.5-14.5) Platelet Count 64 x10^3/uL (140-400) Neutrophils (%) (Auto) 33 % (31-73) Lymphocytes (%) (Auto) 43 % (24-48) Monocytes (%) (Auto) 10 % (0-9) Eosinophils (%) (Auto) 13 % (0-3) Basophils (%) (Auto) 1 % (0-3) Neutrophils # (Auto) 1.5 x10^3uL (1.8-7.7) Lymphocytes # (Auto) 1.9 x10^3/uL (1.0-4.8) Monocytes # (Auto) 0.4 x10^3/uL (0.0-1.1) Eosinophils # (Auto) 0.6 x10^3/uL (0.0-0.7) Basophils # (Auto) 0.1 x10^3/uL (0.0-0.2) Sodium Level 142 mmol/L (136-145) Potassium Level 4.1 mmol/L (3.5-5.1) Chloride Level 106 mmol/L (98-107) Carbon Dioxide Level 30 mmol/L (21-32) Anion Gap 6 (6-14) Blood Urea Nitrogen 25 mg/dL (8-26) Creatinine 3.0 mg/dL (0.7-1.3) Estimated GFR (Cockcroft-Gault) 21.2 Glucose Level 98 mg/dL (70-99) Calcium Level 8.2 mg/dL (8.5-10.1) Glucose (Fingerstick) 89 mg/dL (70-99) 137 mg/dL (70-99) Laboratory Tests Test 04/12/17 17:42 04/12/17 20:44 04/13/17 03:50 04/13/17 07:34 Glucose (Fingerstick) 101 mg/dL (70-99) 188 mg/dL (70-99) 89 mg/dL (70-99) White Blood Count 4.6 x10^3/uL (4.0-11.0) Red Blood Count 2.71 x10^6/uL (4.30-5.70) Hemoglobin 7.9 g/dL (13.0-17.5) Hematocrit 23.5 % (39.0-53.0) Mean Corpuscular Volume 87 fL (79-100) Mean Corpuscular Hemoglobin 29 pg (25-35) Mean Corpuscular Hemoglobin Concent 34 g/dL (31-37) Red Cell Distribution Width 15.2 % (11.5-14.5) Platelet Count 64 x10^3/uL (140-400) Neutrophils (%) (Auto) 33 % (31-73) Lymphocytes (%) (Auto) 43 % (24-48) Monocytes (%) (Auto) 10 % (0-9) Eosinophils (%) (Auto) 13 % (0-3) Basophils (%) (Auto) 1 % (0-3) Neutrophils # (Auto) 1.5 x10^3uL (1.8-7.7) Lymphocytes # (Auto) 1.9 x10^3/uL (1.0-4.8) Monocytes # (Auto) 0.4 x10^3/uL (0.0-1.1) Eosinophils # (Auto) 0.6 x10^3/uL (0.0-0.7) Basophils # (Auto) 0.1 x10^3/uL (0.0-0.2) Sodium Level 142 mmol/L (136-145) Potassium Level 4.1 mmol/L (3.5-5.1) Chloride Level 106 mmol/L (98-107) Carbon Dioxide Level 30 mmol/L (21-32) Anion Gap 6 (6-14) Blood Urea Nitrogen 25 mg/dL (8-26) Creatinine 3.0 mg/dL (0.7-1.3) Estimated GFR (Cockcroft-Gault) 21.2 Glucose Level 98 mg/dL (70-99) Calcium Level 8.2 mg/dL (8.5-10.1) Test 04/13/17 10:25 Glucose (Fingerstick) 137 mg/dL (70-99) Medications Current Medications Sodium Chloride 1,000 ml @ 100 mls/hr Q10H IV Last administered on 04/10/17 12:48; Start 04/10/17 at 02:00; Stop 04/11/17 at 01:59; Status DC Amlodipine Besylate (Norvasc) 10 mg DAILY PO Last administered on 04/12/17 09: 19; Start 04/10/17 at 13:00 Divalproex Sodium (Depakote) 500 mg BID PO Last administered on 04/12/17 20:43 ; Start 04/10/17 at 13:00 Furosemide (Lasix) 40 mg DAILY PO Last administered on 04/12/17 09:19; Start 04/10/17 at 13:00 Insulin Aspart (NovoLOG) 10 units TIDAC SQ ; Start 04/10/17 at 16:30 Trimethoprim/ Sulfamethoxazole (Bactrim Ds) 1 tab BID PO Last administered on 12:47; Start 04/10/17 at 13:00; Stop 04/10/17 at 17:27; Status DC Tamsulosin HCl (Flomax) 0.4 mg DAILY PO Last administered on 04/12/17 09:19; Start 04/10/17 at 13:00 Insulin Detemir (Levemir) 5 units BID SQ Last administered on 04/12/17 20:50; Start 04/10/17 at 21:00 Sodium Chloride 1,000 ml @ 1,000 mls/hr Q1H PRN IV hypotension; Start 04/10/17 at 18:36; Stop 04/11/17 at 00:35; Status DC Sodium Chloride (Normal Saline Flush) 10 ml 1X PRN PRN IV AP catheter pack; Start 04/10/17 at 18:45; Stop 04/11/17 at 18:44; Status DC Sodium Chloride (Normal Saline Flush) 10 ml 1X PRN PRN IV OVERCOILER catheter pack; Start 04/10/17 at 18:45; Stop 04/11/17 at 18:44; Status DC Info (PHARMACY MONITORING -- do not chart) 1 each PRN DAILY PRN MC SEE COMMENTS ; Start 04/10/17 at 18:45 Acetaminophen (Tylenol) 650 mg PRN Q6HRS PRN PO pain Last administered on 15:06; Start 04/11/17 at 15:00 Darbepoetin Jamie (Aranesp) 60 mcg WEEKLYHS SQ Last administered on 04/12/17 20 :43; Start 04/12/17 at 21:00 Sodium Chloride 1,000 ml @ 1,000 mls/hr Q1H PRN IV hypotension; Start 04/12/17 at 14:47; Stop 04/12/17 at 20:46; Status DC Info (PHARMACY MONITORING -- do not chart) 1 each PRN DAILY PRN MC SEE COMMENTS ; Start 04/12/17 at 15:00; Status UNV Ondansetron HCl (Zofran) 4 mg PRN Q6HRS PRN IV NAUSEA/VOMITING; Start 04/13/17 at 10:15 Vitamin B Complex/ Vitamin C ([place]) 1 tab DAILY PO ; Start 04/13/17 at 14: 00 Active Scripts Active Reported Zofran Odt (Ondansetron) 4 Mg Tab.rapdis 1 Tab SL Q6HRS Tamsulosin Hcl 0.4 Mg Cap.er.24h 0.4 Mg PO DAILY Norvasc (Amlodipine Besylate) 10 Mg Tablet 10 Mg PO DAILY Metformin Hcl 500 Mg Tablet 500 Mg PO BIDWMEALS Humulin R (Insulin Regular, Human) 100 Unit/1 Ml Vial 100 Unit IJ Humulin N (Nph, Human Insulin Isophane) 100 Unit/1 Ml Vial 5 Unit SQ BID Furosemide 40 Mg Tablet 1 Tab PO DAILY Depakote (Divalproex Sodium) 500 Mg Tablet. 1 Tab PO BID Bactrim Ds Tablet (Sulfamethoxazole/Trimethoprim) 1 Each Tablet 1 Tab PO BID Vitals/I & O Vital Sign - Last 24 Hours 04/12/17 04/12/17 04/13/17 04/13/17 19:00 23:00 03:30 07:00 Temp 98.8 99.0 98.1 98.0 98.8 99.0 98.1 98.0 Pulse 63 63 60 59 Resp 18 18 18 18 B/P (MAP) 139/62 (87) 147/62 (90) 139/66 (90) 142/62 (88) Pulse Ox 95 94 96 93 O2 Delivery Room Air 04/13/17 04/13/17 08:00 10:54 Temp 97.5 97.5 Pulse 86 Resp 16 B/P (MAP) 123/56 (78) Pulse Ox 93 O2 Delivery Room Air Room Air Intake and Output 04/13/17 04/13/17 04/14/17 15:00 23:00 07:00 Intake Total 600 ml Balance 600 ml MARGUERITE JOHNSON III DO Apr 13, 2017 13:40
[2017-04-13] MEDS: FOLIC/VIT B COMP W-C (RENAL) TABLET. PO SCH (15:04)
[2017-04-14] VITALS (9 sets, daily range): BP systolic 140–168; BP diastolic 61–75
[2017-04-14] MEDS: ACETAMINOPHEN 325 MG TABLET. PO PRN (00:01)
[2017-04-14 07:28] LABS: BASO # 0.1 x10^3/uL (0.0-0.2); BASO % 1 % (0-3); EOS % 12 % (0-3); HEMATOCRIT 28.7 % (39.0-53.0); HEMOGLOBIN 9.6 g/dL (13.0-17.5); LYMPH # 2.1 x10^3/uL (1.0-4.8); LYMPH % 39 % (24-48); MEAN CORPUSCULAR HEMOGLOBIN 29 pg (25-35); MEAN CORPUSCULAR HGB CONC 33 g/dL (31-37); MEAN CORPUSCULAR VOLUME 87 fL (79-100); MONO % 11 % (0-9); NEUT % 37 % (31-73); PLATELET COUNT 65 x10^3/uL (140-400); RED BLOOD COUNT 3.32 x10^6/uL (4.30-5.70); RED CELL DISTRIBUTION WIDTH 15.7 % (11.5-14.5); WHITE BLOOD COUNT 5.5 x10^3/uL (4.0-11.0)
[2017-04-14] MEDS: INSULIN ASPART 300 UNITS/3 ML INSULN.PEN SQ SCH (07:30)
[2017-04-14 07:45] LABS: CALCIUM 8.2 mg/dL (8.5-10.1); GFR 15.2; POTASSIUM 4.3 mmol/L (3.5-5.1)
[2017-04-14] MEDS: FOLIC/VIT B COMP W-C (RENAL) TABLET. PO SCH (08:24)
[2017-04-14] MEDS: DIVALPROEX DELAYED RELEASE 500 MG TABLET.DR. PO SCH (08:24)
[2017-04-14] MEDS: TAMSULOSIN 0.4 MG CAP.ER.24H. PO SCH (08:25)
[2017-04-14] MEDS: amLODIPine BESYLATE 10 MG TABLET PO SCH (08:25)
[2017-04-14] MEDS: FUROSEMIDE 40 MG TABLET. PO SCH (08:25)
[2017-04-14] MEDS: INSULIN DETEMIR 300 UNITS/3 ML INSULN.PEN. SQ SCH (08:27)
[2017-04-14] MEDS ORDERED: INSU100I27 SQ (10:15)
[2017-04-14] MEDS ORDERED: IV NORMAL SALINE 1000ML BAG 1,000 ML IV PRN (11:41)
[2017-04-14] MEDS ORDERED: ALBUMIN HUMAN 25% 200 ML IV PRN (11:45)
[2017-04-14] MEDS ORDERED: LABETALOL 20 MG/4 ML DISP.SYRIN. IVP PRN (11:45)
[2017-04-14] MEDS ORDERED: diphenhydrAMINE 50 MG/ML VIAL IV PRN (11:45)
[2017-04-14] MEDS ORDERED: DIALYSIS PATIENT. MC PRN (11:45)
[2017-04-14] MEDS ORDERED: ACETAMINOPHEN 500 MG TABLET PO PRN (11:45)
--- NOTE | 2017-04-14 12:49 | PDOC ---
Dialysis Progress Note Dialysis Note Dialysis Note Seen on Hemodialysis, tolerating treatment Well Vitals on Hemodialysis : 150/74 64 afeb General Appearance: Awake: Alert Oriented x 3 Neck: No JVD or JVP Chest: CTA Juni Heart: S1 S2 Abdomen - Soft NTND Extremities - No Edema ESRD: Dialysis as below F 180 NR 3.5 Hrs 3 K 2.5 Ca 140 Na 35 HC03 Qb 350 + Qd 500+ Heparin 0 Units Uf 2-3 Kgs or to dry weight as tolerated May give 25-50 gms of 25% Albumin if needed to maintain Hemodynamic stability Treatment plan reviewed and discussed with tool shaper setup operator Vitals Vital Signs Vital Signs Date Time Temp Pulse Resp B/P (MAP) Pulse Ox O2 Delivery O2 Flow Rate FiO2 04/14/17 11:00 97.9 59 18 150/61 (90) 95 Room Air 97.9 Labs Last Labs Laboratory Tests Test 04/12/17 17:42 04/12/17 20:44 04/13/17 03:50 04/13/17 07:34 Glucose (Fingerstick) 101 mg/dL (70-99) 188 mg/dL (70-99) 89 mg/dL (70-99) White Blood Count 4.6 x10^3/uL (4.0-11.0) Red Blood Count 2.71 x10^6/uL (4.30-5.70) Hemoglobin 7.9 g/dL (13.0-17.5) Hematocrit 23.5 % (39.0-53.0) Mean Corpuscular Volume 87 fL (79-100) Mean Corpuscular Hemoglobin 29 pg (25-35) Mean Corpuscular Hemoglobin Concent 34 g/dL (31-37) Red Cell Distribution Width 15.2 % (11.5-14.5) Platelet Count 64 x10^3/uL (140-400) Neutrophils (%) (Auto) 33 % (31-73) Lymphocytes (%) (Auto) 43 % (24-48) Monocytes (%) (Auto) 10 % (0-9) Eosinophils (%) (Auto) 13 % (0-3) Basophils (%) (Auto) 1 % (0-3) Neutrophils # (Auto) 1.5 x10^3uL (1.8-7.7) Lymphocytes # (Auto) 1.9 x10^3/uL (1.0-4.8) Monocytes # (Auto) 0.4 x10^3/uL (0.0-1.1) Eosinophils # (Auto) 0.6 x10^3/uL (0.0-0.7) Basophils # (Auto) 0.1 x10^3/uL (0.0-0.2) Sodium Level 142 mmol/L (136-145) Potassium Level 4.1 mmol/L (3.5-5.1) Chloride Level 106 mmol/L (98-107) Carbon Dioxide Level 30 mmol/L (21-32) Anion Gap 6 (6-14) Blood Urea Nitrogen 25 mg/dL (8-26) Creatinine 3.0 mg/dL (0.7-1.3) Estimated GFR (Cockcroft-Gault) 21.2 Glucose Level 98 mg/dL (70-99) Calcium Level 8.2 mg/dL (8.5-10.1) Test 04/13/17 10:25 04/13/17 16:06 04/13/17 20:48 04/14/17 07:10 Glucose (Fingerstick) 137 mg/dL (70-99) 152 mg/dL (70-99) 237 mg/dL (70-99) White Blood Count 5.5 x10^3/uL (4.0-11.0) Red Blood Count 3.32 x10^6/uL (4.30-5.70) Hemoglobin 9.6 g/dL (13.0-17.5) Hematocrit 28.7 % (39.0-53.0) Mean Corpuscular Volume 87 fL (79-100) Mean Corpuscular Hemoglobin 29 pg (25-35) Mean Corpuscular Hemoglobin Concent 33 g/dL (31-37) Red Cell Distribution Width 15.7 % (11.5-14.5) Platelet Count 65 x10^3/uL (140-400) Neutrophils (%) (Auto) 37 % (31-73) Lymphocytes (%) (Auto) 39 % (24-48) Monocytes (%) (Auto) 11 % (0-9) Eosinophils (%) (Auto) 12 % (0-3) Basophils (%) (Auto) 1 % (0-3) Neutrophils # (Auto) 2.0 x10^3uL (1.8-7.7) Lymphocytes # (Auto) 2.1 x10^3/uL (1.0-4.8) Monocytes # (Auto) 0.6 x10^3/uL (0.0-1.1) Eosinophils # (Auto) 0.6 x10^3/uL (0.0-0.7) Basophils # (Auto) 0.1 x10^3/uL (0.0-0.2) Sodium Level 143 mmol/L (136-145) Potassium Level 4.3 mmol/L (3.5-5.1) Chloride Level 107 mmol/L (98-107) Carbon Dioxide Level 28 mmol/L (21-32) Anion Gap 8 (6-14) Blood Urea Nitrogen 45 mg/dL (8-26) Creatinine 4.0 mg/dL (0.7-1.3) Estimated GFR (Cockcroft-Gault) 15.2 Glucose Level 124 mg/dL (70-99) Calcium Level 8.2 mg/dL (8.5-10.1) Phosphorus Level 4.4 mg/dL (2.6-4.7) Test 04/14/17 07:25 04/14/17 11:43 Glucose (Fingerstick) 115 mg/dL (70-99) 155 mg/dL (70-99) Laboratory Tests Test 04/13/17 16:06 04/13/17 20:48 04/14/17 07:10 04/14/17 07:25 Glucose (Fingerstick) 152 mg/dL (70-99) 237 mg/dL (70-99) 115 mg/dL (70-99) White Blood Count 5.5 x10^3/uL (4.0-11.0) Red Blood Count 3.32 x10^6/uL (4.30-5.70) Hemoglobin 9.6 g/dL (13.0-17.5) Hematocrit 28.7 % (39.0-53.0) Mean Corpuscular Volume 87 fL (79-100) Mean Corpuscular Hemoglobin 29 pg (25-35) Mean Corpuscular Hemoglobin Concent 33 g/dL (31-37) Red Cell Distribution Width 15.7 % (11.5-14.5) Platelet Count 65 x10^3/uL (140-400) Neutrophils (%) (Auto) 37 % (31-73) Lymphocytes (%) (Auto) 39 % (24-48) Monocytes (%) (Auto) 11 % (0-9) Eosinophils (%) (Auto) 12 % (0-3) Basophils (%) (Auto) 1 % (0-3) Neutrophils # (Auto) 2.0 x10^3uL (1.8-7.7) Lymphocytes # (Auto) 2.1 x10^3/uL (1.0-4.8) Monocytes # (Auto) 0.6 x10^3/uL (0.0-1.1) Eosinophils # (Auto) 0.6 x10^3/uL (0.0-0.7) Basophils # (Auto) 0.1 x10^3/uL (0.0-0.2) Sodium Level 143 mmol/L (136-145) Potassium Level 4.3 mmol/L (3.5-5.1) Chloride Level 107 mmol/L (98-107) Carbon Dioxide Level 28 mmol/L (21-32) Anion Gap 8 (6-14) Blood Urea Nitrogen 45 mg/dL (8-26) Creatinine 4.0 mg/dL (0.7-1.3) Estimated GFR (Cockcroft-Gault) 15.2 Glucose Level 124 mg/dL (70-99) Calcium Level 8.2 mg/dL (8.5-10.1) Phosphorus Level 4.4 mg/dL (2.6-4.7) Test 04/14/17 11:43 Glucose (Fingerstick) 155 mg/dL (70-99) Assessment Assessment Problems Medical Problems: (1) Anemia Status: Acute (2) ESRD (end stage renal disease) Status: Acute (3) Hyperkalemia Status: Acute Problems: Plan Plan of Care Problems Medical Problems: (1) Anemia Status: Acute (2) ESRD (end stage renal disease) Status: Acute (3) Hyperkalemia Status: Acute KARENA CARR MD Apr 14, 2017 12:49
--- NOTE | 2017-04-14 14:06 | PDOC3 ---
Discharge Summary [facility] Date of Admission: Apr 10, 2017 Discharge Date: Apr 14, 2017 Admitting Diagnosis Hyperkalemia secondary to end stage renal disease End stage renal disease htn DM hld Problems: Final Diagnosis CONSULTS renal Brief Hospital Course Mr. Gupta is a 66 old M, from [facility], got HD cath 2 months ago, not started HD yet, sent to hosp for K 6? K was 5.8 in ER. pt started HD in hosp. dc back to [facility], cont HD MWF, decrease insulin to levemir 5u qhs, recommend SSI. dc time 35min General: Alert, Oriented X3, Cooperative, No acute distress Heart: Regular rate, Normal S1, Normal S2 Lungs: Clear, Other (no wheezing, no crackles) Abdomen: Soft, No tenderness, No hepatosplenomegaly Extremities: No clubbing, No cyanosis, Other (1-2+ LE edema, b/l) Skin: No rashes, No significant lesion Problems: Disposition [facility] CONDITION AT DISCHARGE: Improved Diet renal Scheduled Amlodipine Besylate (Norvasc), 10 MG PO DAILY, (Reported) Divalproex Sodium (Depakote), 1 TAB PO BID, (Reported) Furosemide (Furosemide), 1 TAB PO DAILY, (Reported) Insulin Detemir (Levemir Flextouch), 5 UNITS SQ QHS Ondansetron (Zofran Odt), 1 TAB SL Q6HRS, (Reported) Tamsulosin Hcl (Tamsulosin Hcl), 0.4 MG PO DAILY, (Reported) Discontinued Medications Insulin Regular, Human (Humulin R), 100 UNIT IJ, (Reported) Metformin Hcl (Metformin Hcl), 500 MG PO BIDWMEALS, (Reported) Nph, Human Insulin Isophane (Humulin N), 5 UNIT SQ BID, (Reported) Sulfamethoxazole/Trimethoprim (Bactrim Ds Tablet), 1 TAB PO BID, (Reported) Follow Up renal in 2 weeks MANINDER VILLA MD Apr 14, 2017 14:06
[2017-04-14] MEDS ORDERED: INSULIN DETEMIR 300 UNITS/3 ML INSULN.PEN. SQ SCH (21:00)
[2017-04-15 17:17] LABS: HEP B SURFACE ABDY Non Reactive (.)
[2017-04-16] MEDS ORDERED: NPH,100V SQ (12:31)
[2017-04-16] MEDS ORDERED: RANI150C PO (12:31)
[2017-04-16] MEDS ORDERED: INSU100V5 IJ (12:31)
[2017-04-16] MEDS ORDERED: ACET325T9 PO (12:31)
== END 2017-04-14 18:30 | disposition home or self-care (01) | DRG 682 ==
LOC: ER 00:52 → EEVIPCON 00:52 → 5 SOUTH 01:51
PROVIDERS: ADMIT Internal Medicine; ATTEND Internal Medicine
PROC: 5A1D60Z (ICD-10-PCS; principal; 2017-04-10)
PROC: 30233N1 Transfusion of Nonautologous Red Blood Cells into Peripheral Vein, Percutaneous Approach (ICD-10-PCS; 2017-04-13)
PROC: 30233N1 Transfusion of Nonautologous Red Blood Cells into Peripheral Vein, Percutaneous Approach (ICD-10-PCS; 2017-04-14)
DX: I12.0 Hypertensive chronic kidney disease with stage 5 chronic kidney disease or end stage renal disease (principal); N18.6 End stage renal disease; I95.9 Hypotension, unspecified; E11.22 Type 2 diabetes mellitus with diabetic chronic kidney disease; E87.5 Hyperkalemia; E11.51 Type 2 diabetes mellitus with diabetic peripheral angiopathy without gangrene; D64.9 Anemia, unspecified; E78.5 Hyperlipidemia, unspecified; Z83.3 Family history of diabetes mellitus; Z88.6 Allergy status to analgesic agent; Z99.2 Dependence on renal dialysis
CPT/HCPCS: 36415; 80048; 80053; 82962; 83735; 83880; 84100; 84484; 85025; 85610; 85730; 86706; 86850; 86900; 86901; 86920; 87340; 87341; 87641; 93005; J0881; J1815; J7030; P9016; 99285-25

== ENCOUNTER 2018-01-27 16:58 | Emergency (ER) | payer OTHER ==
[2018-01-27 17:14] LABS: ADD MAN DIFF? NO
[2018-01-27 17:35] LABS: BASO % 1 % (0-3); EOS # 0.4 x10^3/uL (0.0-0.7); EOS % 8 % (0-3); HEMATOCRIT 28.9 % (39.0-53.0); HEMOGLOBIN 9.8 g/dL (13.0-17.5); LYMPH # 1.7 x10^3/uL (1.0-4.8); LYMPH % 37 % (24-48); MEAN CORPUSCULAR HEMOGLOBIN 29 pg (25-35); MEAN CORPUSCULAR HGB CONC 34 g/dL (31-37); MEAN CORPUSCULAR VOLUME 86 fL (79-100); MONO # 0.5 x10^3/uL (0.0-1.1); MONO % 11 % (0-9); NEUT % 44 % (31-73); PLATELET COUNT 62 x10^3/uL (140-400); RED BLOOD COUNT 3.36 x10^6/uL (4.30-5.70); RED CELL DISTRIBUTION WIDTH 16.2 % (11.5-14.5); WHITE BLOOD COUNT 4.7 x10^3/uL (4.0-11.0)
[2018-01-27 17:40] LABS: ANION GAP 11 (6-14); BLOOD UREA NITROGEN 36 mg/dL (8-26); CALCIUM 8.2 mg/dL (8.5-10.1); CARBON DIOXIDE 29 mmol/L (21-32); CHLORIDE 99 mmol/L (98-107); CREATININE 3.5 mg/dL (0.7-1.3); GFR 17.7; GLUCOSE 214 mg/dL (70-99); POTASSIUM 3.9 mmol/L (3.5-5.1); SODIUM 139 mmol/L (136-145)
== END 2018-01-27 19:50 | disposition home or self-care (01) ==
LOC: ER 16:58
DX: D64.9 Anemia, unspecified (principal); R42 Dizziness and giddiness; I12.0 Hypertensive chronic kidney disease with stage 5 chronic kidney disease or end stage renal disease; N18.6 End stage renal disease; E11.22 Type 2 diabetes mellitus with diabetic chronic kidney disease; Z88.5 Allergy status to narcotic agent; Z99.2 Dependence on renal dialysis
CPT/HCPCS: 36415; 80048; 85025; 99284

== ENCOUNTER 2018-06-01 09:55 | Day surgery (SDC) | payer OTHER ==
[~2018-06-01] VITALS: Ht 182.9 cm; Wt 76.2 kg
[~2018-06-01 09:55] MED LIST: 0.9 % SODIUM CHLORIDE 20 ML VIAL. IJ ONE; ACET325T9 PO; AMLO10TA4 PO; ASPI-612 PO; ATOR20TA58 PO; CALC500O PO; CLOP75TA PO; DIVA500T2 PO; FURO40TA4 PO; HEPARIN SODIUM 5,000 UNIT in IV NORMAL SALINE 500ML BAG 500 ML IRR ONE; INSU100I27 SQ; INSU100V5 IJ; IV RINGERS,LACTATED 1000ML 1,000 ML IV SCH; LACT20SO PO; LIDOCAINE 1% PF 2 ML VIAL. ID PRN; LIDOCAINE 1% PF 30 ML VIAL. ONE; METF500T16 PO; NPH,100V SQ; ONDA4TAB10 SL; ONDANSETRON PF 4 MG/2 ML VIAL. IV PRN; PAPAVERINE 60 MG/2 ML VIAL FOR OR ONLY. ONE; POVIDONE-IODINE 10% TOPICAL OINTMENT 28GM TUBE. TP ONE; PROCHLORPERAZINE 10 MG/2 ML VIAL. IV PRN; PROTAMINE 50 MG/5 ML VIAL. IV ONE; RANI150C PO; RANI300C PO; SULF1TAB24 PO; SURGICEL FIBRILLAR 1X2 EACH. ONE; TAMS0.4C2 PO; THROMBIN TOPICAL 5,000 UNIT VIAL. ONE; fentaNYL PF VIAL 100 MCG/2 ML VIAL IV PRN
[2018-06-01] MEDS ORDERED: SEVOFLURANE 61 TO 120 MINUTES. IH ONE (10:42)
[2018-06-01] MEDS ORDERED: PROPOFOL 20 ML IV ONE (10:42)
[2018-06-01] MEDS ORDERED: ONDANSETRON PF 4 MG/2 ML VIAL. ONE (10:42)
[2018-06-01] MEDS ORDERED: PROPOFOL 0 ML IV ONE (10:42)
[2018-06-01] MEDS ORDERED: LIDOCAINE 2% PF Vial for OR 5 ML VIAL. ONE (10:42)
[2018-06-01] MEDS ORDERED: DEXAMETHASONE SOD PHOS 20 MG/5 ML VIAL. ONE (10:42)
[2018-06-01] MEDS ORDERED: fentaNYL PF VIAL 100 MCG/2 ML VIAL ONE (10:42)
[2018-06-01] MEDS ORDERED: MIDAZOLAM HCL/PF 2 MG/2 ML VIAL. ONE ×2 (10:42→12:10)
[2018-06-01] MEDS ORDERED: IV NORMAL SALINE 1000ML BAG 1,000 ML IV SCH (10:45)
[2018-06-01 11:23] LABS: BASO % 1 % (0-3); EOS # 0.3 x10^3/uL (0.0-0.7); EOS % 12 % (0-3); HEMATOCRIT 29.2 % (39.0-53.0); HEMOGLOBIN 9.7 g/dL (13.0-17.5); LYMPH % 37 % (24-48); MEAN CORPUSCULAR HEMOGLOBIN 28 pg (25-35); MEAN CORPUSCULAR HGB CONC 33 g/dL (31-37); MEAN CORPUSCULAR VOLUME 86 fL (79-100); MONO # 0.3 x10^3/uL (0.0-1.1); MONO % 10 % (0-9); NEUT # 1.1 x10^3uL (1.8-7.7); NEUT % 41 % (31-73); PLATELET COUNT 48 x10^3/uL (140-400); RED BLOOD COUNT 3.41 x10^6/uL (4.30-5.70); RED CELL DISTRIBUTION WIDTH 15.2 % (11.5-14.5); WHITE BLOOD COUNT 2.7 x10^3/uL (4.0-11.0)
[2018-06-01 11:28] LABS: CALCIUM 8.9 mg/dL (8.5-10.1); CREATININE 3.2 mg/dL (0.7-1.3); GFR 19.6; POTASSIUM 4.1 mmol/L (3.5-5.1)
[2018-06-01 11:38] LABS: PROTHROMBIN TIME PATIENT 13.1 SEC (11.7-14.0)
[2018-06-01] MEDS ORDERED: PHENYLEPHRINE in 0.9% NACL PF 1 MG/10 ML SYRINGE. IV ONE (12:23)
[2018-06-01] MEDS ORDERED: HEPARIN for IV BOLUS 10,000 UNIT/10 ML VIAL. ONE (12:38)
[2018-06-01] MEDS ORDERED: ePHEDrine PF IN SALINE 50 MG/5 ML DISP.SYRIN IV ONE (12:44)
[2018-06-01] MEDS ORDERED: SEVOFLURANE > 120 MINUTES. IH ONE (14:29)
--- NOTE | 2018-06-01 14:59 | PDOC4 ---
Operative Note Operative Note Op note dictated Dx: ESRD brachiobasilic AV fistula left arm Op: transposition left arm AV fistula Surg: Chente GOT to rr in sat. cond. CLAUS VERDUZCO II, MD Jun 01, 2018 14:59
[2018-06-01] MEDS ORDERED: INSULIN LISPRO 100 UNIT/ML 3ML VIAL. SQ ONE (15:00)
[2018-06-01 15:29] VITALS: BP 141/64
--- NOTE | 2018-06-01 15:39 | OP ---
DATE OF SURGERY: 06/01/2018 PREOPERATIVE DIAGNOSES: 1. End-stage renal disease. 2. Status post left arm brachiobasilic arteriovenous fistula. OPERATION PERFORMED: Transposition left arm brachiobasilic AV fistula. SURGEON: Rocky Eldridge M.D. ANESTHESIA: General. INDICATIONS: This is a 67-year-old gentleman who had a left brachiobasilic AV fistula placed some time ago. They have actually been using the more distal portion of the fistula for dialysis. He presents for transposition of the fistula to a more anterior and superficial location. The operation risks and benefits were explained to the patient including risk of cutaneous nerve injury. OPERATIVE FINDINGS: The patient had a well formed basilic vein, which was mobilized circumferentially and placed in a more superficial and anterior planes. Following the procedure, the patient had an excellent thrill over the vein, which was not easily visible and palpable subcutaneously. DESCRIPTION OF PROCEDURE: The left arm and axilla were prepped and draped in the usual manner with DuraPrep. Timeout was called. The patient received IV antibiotics. An incision was then made over the basilic vein and dissection was carried down to that vein. It was encircled circumferentially. Circumferential dissection was then carried more proximally with branches ligated and divided between silk ties. Dialysis have been using the more distal portion of the fistula and this was very reactive and was not dissected as a fair amount of bleeding from holes and the vein was encountered. The vein was mobilized all the way up to the teres major muscle. A subcutaneous skin flap was then fashioned on the lateral aspect of the incision with care taken to not make the plane of dissection too superficial. Following this, the subcutaneous tissues were approximated in an interrupted fashion with 2-0 Vicryl with the vein overlying this. The skin was then approximated with a running 4-0 Vicryl and Steri-Strips were applied. The fistula now was readily palpable and visible in a subcutaneous location. The patient tolerated the procedure well. A sterile mild compression dressing was applied. ESTIMATED BLOOD LOSS: Minimal. DRAINS: None. SPECIMENS: None. ROCKY ELDRIDGE MD DR: VAHID/celena JOB#: [id number] / [id number]
== END 2018-06-01 16:11 ==
LOC: SURG 09:55
PROVIDERS: ATTEND Surgery
DX: I13.2 Hypertensive heart and chronic kidney disease with heart failure and with stage 5 chronic kidney disease, or end stage renal disease (principal); E11.22 Type 2 diabetes mellitus with diabetic chronic kidney disease; N18.6 End stage renal disease; I50.9 Heart failure, unspecified; Z99.2 Dependence on renal dialysis; I25.10 Atherosclerotic heart disease of native coronary artery without angina pectoris; Z98.890 Other specified postprocedural states; Z88.5 Allergy status to narcotic agent; Z79.82 Long term (current) use of aspirin; Z79.899 Other long term (current) drug therapy; Z79.4 Long term (current) use of insulin; Z95.5 Presence of coronary angioplasty implant and graft; Z88.8 Allergy status to other drugs, medicaments and biological substances; Z79.01 Long term (current) use of anticoagulants
CPT/HCPCS: 36415; 36819; 76000; 80048; 82962; 85025; 85610; 85730; A7015; J0690; J1100; J1644; J2001; J2250; J2370; J2405; J2704; J3010; J7040; J2440

== ENCOUNTER 2018-06-02 09:04 | Inpatient (IN) | payer OTHER ==
[~2018-06-02] VITALS: Ht 182.9 cm; Wt 88.5 kg
[2018-06-02] VITALS (11 sets, daily range): BP systolic 100–134; BP diastolic 44–61
[~2018-06-02 09:04] MED LIST changes: -0.9 % SODIUM CHLORIDE 20 ML VIAL. IJ ONE; -HEPARIN SODIUM 5,000 UNIT in IV NORMAL SALINE 500ML BAG 500 ML IRR ONE; -IV RINGERS,LACTATED 1000ML 1,000 ML IV SCH; -LIDOCAINE 1% PF 2 ML VIAL. ID PRN; -LIDOCAINE 1% PF 30 ML VIAL. ONE; -ONDANSETRON PF 4 MG/2 ML VIAL. IV PRN; -PAPAVERINE 60 MG/2 ML VIAL FOR OR ONLY. ONE; -POVIDONE-IODINE 10% TOPICAL OINTMENT 28GM TUBE. TP ONE; -PROCHLORPERAZINE 10 MG/2 ML VIAL. IV PRN; -PROTAMINE 50 MG/5 ML VIAL. IV ONE; -SURGICEL FIBRILLAR 1X2 EACH. ONE; -THROMBIN TOPICAL 5,000 UNIT VIAL. ONE; -fentaNYL PF VIAL 100 MCG/2 ML VIAL IV PRN
[2018-06-02 09:59] LABS: BASO % 1 % (0-3); EOS # 0.1 x10^3/uL (0.0-0.7); EOS % 2 % (0-3); HEMATOCRIT 22.2 % (39.0-53.0); HEMOGLOBIN 7.3 g/dL (13.0-17.5); LYMPH # 1.1 x10^3/uL (1.0-4.8); LYMPH % 26 % (24-48); MEAN CORPUSCULAR HEMOGLOBIN 29 pg (25-35); MEAN CORPUSCULAR HGB CONC 33 g/dL (31-37); MEAN CORPUSCULAR VOLUME 87 fL (79-100); MONO # 0.4 x10^3/uL (0.0-1.1); MONO % 10 % (0-9); NEUT # 2.5 x10^3uL (1.8-7.7); NEUT % 62 % (31-73); PLATELET COUNT 57 x10^3/uL (140-400); RED BLOOD COUNT 2.55 x10^6/uL (4.30-5.70)
[2018-06-02 10:13] LABS: CALCIUM 8.4 mg/dL (8.5-10.1); CREATININE 3.7 mg/dL (0.7-1.3); GFR 16.6; POTASSIUM 4.3 mmol/L (3.5-5.1)
[2018-06-02 10:19] LABS: ALBUMIN 2.7 g/dL (3.4-5.0); ALBUMIN/GLOBULIN RATIO 0.8 (1.0-1.7); TOTAL BILIRUBIN 0.3 mg/dL (0.2-1.0); TOTAL PROTEIN 5.9 g/dL (6.4-8.2)
[2018-06-02] MEDS ORDERED: IV RINGERS,LACTATED 1000ML 1,000 ML IV SCH (10:22)
[2018-06-02 10:23] LABS: PROTHROMBIN TIME PATIENT 13.5 SEC (11.7-14.0)
[2018-06-02] MEDS ORDERED: ONDANSETRON PF 4 MG/2 ML VIAL. IV PRN ×2 (10:30→14:30)
[2018-06-02] MEDS ORDERED: HYDROmorphone 2 MG/ML VIAL IV PRN (10:30)
[2018-06-02] MEDS ORDERED: MORPHINE SULFATE 2 MG/ML VIAL. IV PRN (10:30)
[2018-06-02] MEDS ORDERED: PROCHLORPERAZINE 10 MG/2 ML VIAL. IV PRN (10:30)
[2018-06-02] MEDS ORDERED: fentaNYL PF VIAL 100 MCG/2 ML VIAL IV PRN ×3 (10:30→14:30)
[2018-06-02] MEDS ORDERED: LIDOCAINE 1% PF 2 ML VIAL. ID PRN (10:30)
--- NOTE | 2018-06-02 10:37 | PHYS DOC ---
Past Medical History Past Medical History: Diabetes-Type II, Hypertension, Seizure, Other Additional Past Medical Histor: chronic renal insuficency, epilepsy Past Surgical History: Other Additional Past Surgical Histo: dialysis graft left arm/REVISION 06/01/2018 @ [facility] Alcohol Use: None Drug Use: None Adult General Chief Complaint Chief Complaint: DIALYSIS PROBLEM HPI HPI Patient is a 67 year old male was brought here by EMS from half-way. He has end -stage renal failure, on dialysis. Patient had an AV fistula on the left arm for a long time. Patient had a transposition of the left AV fistula by the vascular surgeon here yesterday. They tried to access the AV FISTULA this morning for his dialysis. He was bleedings severely at the site of puncture, they could not stop the bleeding, he was hypotensive. Patient is on Plavix. They TIGHTED LEFT UPPER ARM WITH large band of rubber material to stop the bleeding. Patient presented to ER here with the dialysis needles still in the AV fistula. The let arm was heavy wrapped and tighted with large band of rubber material. LEFT forearm and hand were cold to touch with petechial hemorrhage. Patient complains of severe pain in left forearm and hand. Review of Systems Review of Systems Constitutional: Denies fever or chills [] Eyes: Denies change in visual acuity, redness, or eye pain [] HENT: Denies nasal congestion or sore throat [] Respiratory: Denies cough or shortness of breath [] Cardiovascular: No additional information not addressed in HPI [] GI: Denies abdominal pain, nausea, vomiting, bloody stools or diarrhea [] : Denies dysuria or hematuria [] Musculoskeletal: left forearm, hand, fingers pain. Integument: bleeding from AF fistula on left arm. Neurologic: Denies headache, focal weakness or sensory changes [] Endocrine: Denies polyuria or polydipsia [] All other systems were reviewed and found to be within normal limits, except as documented in this note. Current Medications Current Medications Current Medications Medications (Trade) Dose Ordered Sig/Shaheen Start Time Stop Time Status Last Admin Dose Admin Cefazolin Sodium 1 gm/Sodium Chloride 500 ml @ 500 mls/hr 1X ONCE 06/02/18 11:00 06/02/18 11:59 Fentanyl Citrate (Fentanyl 2ml Vial) 50 mcg PRN Q5MIN PRN 06/02/18 10:30 06/03/18 10:29 Heparin Sodium (Porcine) 5000 unit/Sodium Chloride 505 ml @ 505 mls/hr 1X ONCE 06/02/18 11:00 06/02/18 11:59 Hydromorphone HCl (Dilaudid) 0.5 mg PRN Q10MIN PRN 06/02/18 10:30 06/03/18 10:29 UNV Lidocaine HCl (Xylocaine-Mpf 1% 2ml Vial) 2 ml PRN 1X PRN 06/02/18 10:30 06/03/18 10:29 Morphine Sulfate (Morphine Sulfate) 1 mg PRN Q10MIN PRN 06/02/18 10:30 06/03/18 10:29 UNV Ondansetron HCl (Zofran) 4 mg PRN Q6HRS PRN 06/02/18 10:30 06/03/18 10:29 Prochlorperazine Edisylate (Compazine) 5 mg PACU PRN PRN 06/02/18 10:30 06/03/18 10:29 Ringer's Solution 1,000 ml @ 30 mls/hr Q24H 06/02/18 10:22 06/02/18 22:21 Allergies Allergies Allergies Coded Allergies Type Severity Reaction Last Updated Verified morphine Allergy Intermediate 06/01/18 Yes I S O L A T I O N *CONTACT* Allergy Unknown 06/01/18 Yes Physical Exam Physical Exam Constitutional: Well developed, well nourished, no acute distress, non-toxic appearance. [] HENT: Normocephalic, atraumatic, bilateral external ears normal, oropharynx moist, no oral exudates, nose normal. [] Eyes: PERRLA, EOMI, PALE CONJUNCTIVA. Neck: Normal range of motion, no tenderness, supple, no stridor. [] Cardiovascular:Heart rate regular rhythm, no murmur [] Lungs & Thorax: Bilateral breath sounds clear to auscultation [] Abdomen: Bowel sounds normal, soft, no tenderness, no masses, no pulsatile masses. [] Skin: Warm,VERY PALE. Back: No tenderness, no CVA tenderness. [] Extremities: There is no PALPABLE THRILL OVER THE AV FISTULA. LEFT FOREARM, HAND, FINGERS WITH PETECHIAL HEMORRHAGE, COLD TO TOUCH, TENDER TO TOUCH, NO LEFT RADIAL PULSE. Neurologic: Alert and oriented X 3, normal motor function, normal sensory function, no focal deficits noted. [] Psychologic: Affect normal, judgement normal, mood normal. [] Current Patient Data Vital Signs Vital Signs Date Time Temp Pulse Resp B/P (MAP) Pulse Ox O2 Delivery O2 Flow Rate FiO2 06/02/18 09:04 97.7 91 20 142/71 (94) 98 Room Air 97.7 Lab Values Laboratory Tests Test 06/02/18 09:45 White Blood Count 4.0 x10^3/uL (4.0-11.0) Red Blood Count 2.55 x10^6/uL (4.30-5.70) L Hemoglobin 7.3 g/dL (13.0-17.5) L Hematocrit 22.2 % (39.0-53.0) L Mean Corpuscular Volume 87 fL (79-100) Mean Corpuscular Hemoglobin 29 pg (25-35) Mean Corpuscular Hemoglobin Concent 33 g/dL (31-37) Red Cell Distribution Width 15.0 % (11.5-14.5) H Platelet Count 57 x10^3/uL (140-400) L Neutrophils (%) (Auto) 62 % (31-73) Lymphocytes (%) (Auto) 26 % (24-48) Monocytes (%) (Auto) 10 % (0-9) H Eosinophils (%) (Auto) 2 % (0-3) Basophils (%) (Auto) 1 % (0-3) Neutrophils # (Auto) 2.5 x10^3uL (1.8-7.7) Lymphocytes # (Auto) 1.1 x10^3/uL (1.0-4.8) Monocytes # (Auto) 0.4 x10^3/uL (0.0-1.1) Eosinophils # (Auto) 0.1 x10^3/uL (0.0-0.7) Basophils # (Auto) 0.0 x10^3/uL (0.0-0.2) Prothrombin Time 13.5 SEC (11.7-14.0) Prothrombin Time INR 1.1 (0.8-1.1) PTT 26 SEC (24-38) Sodium Level 141 mmol/L (136-145) Potassium Level 4.3 mmol/L (3.5-5.1) Chloride Level 102 mmol/L (98-107) Carbon Dioxide Level 28 mmol/L (21-32) Anion Gap 11 (6-14) Blood Urea Nitrogen 37 mg/dL (8-26) H Creatinine 3.7 mg/dL (0.7-1.3) H Estimated GFR (Cockcroft-Gault) 16.6 BUN/Creatinine Ratio 10 (6-20) Glucose Level 496 mg/dL (70-99) H Calcium Level 8.4 mg/dL (8.5-10.1) L Total Bilirubin 0.3 mg/dL (0.2-1.0) Aspartate Amino Transferase (AST) 9 U/L (15-37) L Alanine Aminotransferase (ALT) 9 U/L (16-63) L Alkaline Phosphatase 75 U/L (46-116) Total Protein 5.9 g/dL (6.4-8.2) L Albumin 2.7 g/dL (3.4-5.0) L Albumin/Globulin Ratio 0.8 (1.0-1.7) L Laboratory Tests 06/02/18 09:45 Laboratory Tests 06/02/18 09:45 EKG EKG [] Radiology/Procedures Radiology/Procedures [] Course & Med Decision Making Course & Med Decision Making Pertinent Labs and Imaging studies reviewed. (See chart for details) CONSULTED DR. VERDUZCO, VASCULAR SURGEON BY PHONE, HE SUSPECTED PATIENT HAD AF FISTULA THROMBOSIS NOW. HE WOULD LIKE FOR HIM TO BE ADMITTED AND WILL TAKE HIM TO OR TODAY TO DO THROMECTOMY. HE ALSO WOULD LIKE IR TO PLACE TEMPORARY DIALYSIS CATHETER SO PATIENT CAN HAVE DIALYSIS. THIS PROVIDER REMOVED THE TOURNIQUET AND DIALYSIS NEEDLES, NO ACTIVE BLEEDING AT THIS TIME. Dragon Disclaimer Dragon Disclaimer This electronic medical record was generated, in whole or in part, using a voice recognition dictation system. Departure Departure Impression: Primary Impression: AV fistula thrombosis Additional Impressions: Hemorrhage of arteriovenous fistula Anemia Disposition: ADMITTED INPATIENT Admitting Physician: Xie. Juarez Condition: STABLE Referrals: NO PCP (PCP) Problem Qualifiers BLADE MAGAÑA DO Jun 02, 2018 10:37
[2018-06-02] MEDS ORDERED: HEPARIN SODIUM 5,000 UNIT in IV NORMAL SALINE 500ML BAG 500 ML IRR ONE (11:00)
[2018-06-02] MEDS ORDERED: HEPARIN for IV BOLUS 10,000 UNIT/10 ML VIAL. ONE ×2 (11:24→15:32)
[2018-06-02] MEDS ORDERED: LIDOCAINE WITH 8.4% SOD BICARB 3 ML DISP.SYRIN. ONE (11:24)
[2018-06-02] MEDS ORDERED: LIDOCAINE WITH 8.4% SOD BICARB 3 ML DISP.SYRIN. INJ ONE (11:45)
--- NOTE | 2018-06-02 12:55 | RAD ---
PORTABLE CHEST 1V dated 06/02/2018 12:00 AM. Comparison: 02/08/2018 Clinical Indication: DIALYSIS CATHETER PLACEMENT. Findings: Single upright portable exam performed. Heart and mediastinal contours are stable. Right internal jugular dialysis catheter with tip projected to the level the right atrium. There are mildly prominent interstitial markings throughout both lungs, similar to prior study. No consolidation or pleural effusion. No pneumothorax. Impression: Right-sided dialysis catheter with no evidence of pneumothorax. Electronically signed by: Brendan Mojica MD (06/02/2018 12:52 PM) [id number]
--- NOTE | 2018-06-02 12:58 | RAD ---
Procedure: Temporary hemodialysis catheter placement at the bedside. Clinical Indication: 67-year-old with chronic renal failure and thrombosed left AV fistula Sedation: Local anesthesia only Antibiotics: None Fluoro Time: Not applicable Contrast: None Sterility: All elements of maximal sterile barrier technique including the use of a cap, mask, sterile gown, sterile gloves, large sterile sheet, appropriate hand hygiene, and 2% chlorhexidine for cutaneous antisepsis (or acceptable alternative antiseptic per current guidelines) were followed for this procedure. Consent: The procedure was explained in its entirety to the patient or the patients designated union contract representative by a member of the treatment team, including a discussion of the risks, benefits and commonly accepted alternatives to the procedure, as well as the expected consequences of no therapy whatsoever. Discussion of the risks included, but was not limited to, those that are most frequent and those that are rare but possibly severe or life-threatening, as well as the possibility of unforeseen complications. Technique and Findings: Following informed consent, the patient was prepped and draped in the usual sterile fashion. Ultrasound interrogation of the right neck revealed patency and compressibility of the right internal jugular vein. A 21-gauge micropuncture needle was used to gain access to this vein after 1% Lidocaine was used to achieve local anesthesia. A hardcopy ultrasound image was recorded. The needle was exchanged over a wire for serial dilators followed by a 20 cm Schon temporary hemodialysis catheter which was deployed in the expected location of the mid right atrium. The catheter flow rates were assessed manually and found to be excellent. The catheter was then flushed, packed with Heparin, capped, and sutured to the skin. Chest x-ray was then obtained to assess line position. Complications: No immediate Impression: 1. Ultrasound guided placement of a temporary hemodialysis catheter which exhibits excellent manual flow rates as described.
[2018-06-02] MEDS ORDERED: INSULIN LISPRO 300 UNITS/3 ML INSULN.PEN. SQ ONE ×2 (13:30→20:30)
[2018-06-02] MEDS ORDERED: DOCUSATE SODIUM 100 MG CAPSULE. PO PRN (14:30)
[2018-06-02] MEDS ORDERED: DEXTROSE 50% 25 GM / 50ML DISP.SYRIN. IV PRN (14:30)
[2018-06-02] MEDS ORDERED: ACETAMINOPHEN 325 MG TABLET. PO PRN (14:30)
--- NOTE | 2018-06-02 14:38 | PDOC1 ---
History and Physical Date of Admission Date of Admission 06/02/18 Identification/Chief Complaint Chief Complaint left avf bleeding Source Source: Chart review, Patient History of Present Illness History of Present Illness HPI HPI Patient is a 67 year old male was brought here by EMS from care home HD center for left arm AVF bleeding. Pt is on HD ttsat. Yesterday, vascular doc had a transposition of left arm avf. TOday , pt was doing HD as usual, HD tech tired to acces the AV fistula 3 times, pt got severe bleeding at the site of puncture. They could not stop the bleeding and pt was hypotensive to 70-80s. Pt left upper arm was wrapped tight with large band of rubber material to stop the bleeding. Pt is on ASA, PLavix for CAD, RECENt NSTEMI with stents. Patient presented to ER here with the dialysis needles still in the AV fistula. T LEFT forearm and hand were cold to touch with petechial hemorrhage. Patient complains of severe pain in left forearm and hand. BP lower side in ER 100s, Hb 7.3 from 9.7 yesterday. Past Medical History Cardiovascular: CAD, HTN Heme/Onc: Anemia NOS Renal/: Chronic renal failure, Benign prostatic enlarg. Endocrine: Diabetes, Hyperparathyroidism Past Surgical History Past Surgical History: No pertinent history Family History Family History: Coronary Artery Disease, Hypertension Social History Smoke: No ALCOHOL: none Drugs: None Current Problem List Problem List Problems Medical Problems: (1) Anemia Status: Acute (2) AV fistula thrombosis Status: Acute Current Medications Current Medications Current Medications Medications (Trade) Dose Ordered Sig/Shaheen Start Time Stop Time Status Last Admin Dose Admin Cefazolin Sodium 1 gm/Sodium Chloride 500 ml @ 500 mls/hr 1X ONCE 06/02/18 11:00 06/02/18 11:59 DC Fentanyl Citrate (Fentanyl 2ml Vial) 50 mcg PRN Q5MIN PRN 06/02/18 10:30 06/03/18 10:29 Heparin Sodium (Porcine) (Heparin Sodium) 2,500 unit 1X ONCE 06/02/18 11:45 06/02/18 11:46 DC 06/02/18 12:10 2,500 UNIT Heparin Sodium (Porcine) 5000 unit/Sodium Chloride 505 ml @ 505 mls/hr 1X ONCE 06/02/18 11:00 06/02/18 11:59 DC Hydromorphone HCl (Dilaudid) 0.5 mg PRN Q10MIN PRN 06/02/18 10:30 06/03/18 10:29 UNV Insulin Human Lispro (HumaLOG) 15 units 1X ONCE 06/02/18 13:30 06/02/18 13:31 DC Lidocaine HCl (Xylocaine-Mpf 1% 2ml Vial) 2 ml PRN 1X PRN 06/02/18 10:30 06/03/18 10:29 Lidocaine/Sodium Bicarbonate (Buffered Lidocaine 1%) 3 ml 1X ONCE 06/02/18 11:45 06/02/18 11:46 DC 06/02/18 12:10 3 ML Morphine Sulfate (Morphine Sulfate) 1 mg PRN Q10MIN PRN 06/02/18 10:30 06/03/18 10:29 UNV Ondansetron HCl (Zofran) 4 mg PRN Q6HRS PRN 06/02/18 10:30 06/03/18 10:29 Prochlorperazine Edisylate (Compazine) 5 mg PACU PRN PRN 06/02/18 10:30 06/03/18 10:29 Ringer's Solution 1,000 ml @ 30 mls/hr Q24H 06/02/18 10:22 06/02/18 22:21 Allergies Allergies Allergies Coded Allergies Type Severity Reaction Last Updated Verified morphine Allergy Intermediate 06/01/18 Yes I S O L A T I O N *CONTACT* Allergy Unknown 06/01/18 Yes ROS Review of System CONSTITUTIONAL: No fever or chills EYES: No recent changes SKIN: No rash or itching CARDIOVASCULAR: No chest pain, syncope, palpitations, or edema RESPIRATORY: No SOB or cough GASTROINTESTINAL: No nausea, vomiting or abdominal pain NEUROLOGICAL: No headaches or weakness ENDOCRINE: No cold or heat intolerance GENITOURINARY: No urgency or frequency of urination MUSCULOSKELETAL: No back pain or joint pain LYMPHATICS: No enlarged lymph nodes PSYCHIATRIC: No anxiety or depression Physical Exam Physical Exam GEN.: No apparent distress. Alert and oriented. HEENT: Head is normocephalic, atraumatic NECK: Supple. LUNGS: Clear to auscultation. HEART: RRR, S1, S2 present. Peripheral pulses intact ABDOMEN: Soft, nontender. Positive bowel sounds. EXTREMITIES: left arm wrapping with rubber material to stop the avf bleeding. has petechia in forearm. NEUROLOGIC: Normal speech, normal tone PSYCHIATRIC: Normal affect, normal mood. SKIN: No ulcerations Vitals Vitals Vital Signs Date Time Temp Pulse Resp B/P (MAP) Pulse Ox O2 Delivery O2 Flow Rate FiO2 06/02/18 14:00 85 14 107/52 (70) 98 06/02/18 12:58 98.2 Room Air 98.2 Labs Labs Laboratory Tests Test 06/02/18 09:45 06/02/18 12:47 White Blood Count 4.0 x10^3/uL (4.0-11.0) Red Blood Count 2.55 x10^6/uL (4.30-5.70) Hemoglobin 7.3 g/dL (13.0-17.5) Hematocrit 22.2 % (39.0-53.0) Mean Corpuscular Volume 87 fL (79-100) Mean Corpuscular Hemoglobin 29 pg (25-35) Mean Corpuscular Hemoglobin Concent 33 g/dL (31-37) Red Cell Distribution Width 15.0 % (11.5-14.5) Platelet Count 57 x10^3/uL (140-400) Neutrophils (%) (Auto) 62 % (31-73) Lymphocytes (%) (Auto) 26 % (24-48) Monocytes (%) (Auto) 10 % (0-9) Eosinophils (%) (Auto) 2 % (0-3) Basophils (%) (Auto) 1 % (0-3) Neutrophils # (Auto) 2.5 x10^3uL (1.8-7.7) Lymphocytes # (Auto) 1.1 x10^3/uL (1.0-4.8) Monocytes # (Auto) 0.4 x10^3/uL (0.0-1.1) Eosinophils # (Auto) 0.1 x10^3/uL (0.0-0.7) Basophils # (Auto) 0.0 x10^3/uL (0.0-0.2) Prothrombin Time 13.5 SEC (11.7-14.0) Prothromb Time International Ratio 1.1 (0.8-1.1) Activated Partial Thromboplast Time 26 SEC (24-38) Sodium Level 141 mmol/L (136-145) Potassium Level 4.3 mmol/L (3.5-5.1) Chloride Level 102 mmol/L (98-107) Carbon Dioxide Level 28 mmol/L (21-32) Anion Gap 11 (6-14) Blood Urea Nitrogen 37 mg/dL (8-26) Creatinine 3.7 mg/dL (0.7-1.3) Estimated GFR (Cockcroft-Gault) 16.6 BUN/Creatinine Ratio 10 (6-20) Glucose Level 496 mg/dL (70-99) Calcium Level 8.4 mg/dL (8.5-10.1) Total Bilirubin 0.3 mg/dL (0.2-1.0) Aspartate Amino Transf (AST/SGOT) 9 U/L (15-37) Alanine Aminotransferase (ALT/SGPT) 9 U/L (16-63) Alkaline Phosphatase 75 U/L (46-116) Total Protein 5.9 g/dL (6.4-8.2) Albumin 2.7 g/dL (3.4-5.0) Albumin/Globulin Ratio 0.8 (1.0-1.7) Glucose (Fingerstick) 426 mg/dL (70-99) Laboratory Tests Test 06/02/18 09:45 06/02/18 12:47 White Blood Count 4.0 x10^3/uL (4.0-11.0) Red Blood Count 2.55 x10^6/uL (4.30-5.70) Hemoglobin 7.3 g/dL (13.0-17.5) Hematocrit 22.2 % (39.0-53.0) Mean Corpuscular Volume 87 fL (79-100) Mean Corpuscular Hemoglobin 29 pg (25-35) Mean Corpuscular Hemoglobin Concent 33 g/dL (31-37) Red Cell Distribution Width 15.0 % (11.5-14.5) Platelet Count 57 x10^3/uL (140-400) Neutrophils (%) (Auto) 62 % (31-73) Lymphocytes (%) (Auto) 26 % (24-48) Monocytes (%) (Auto) 10 % (0-9) Eosinophils (%) (Auto) 2 % (0-3) Basophils (%) (Auto) 1 % (0-3) Neutrophils # (Auto) 2.5 x10^3uL (1.8-7.7) Lymphocytes # (Auto) 1.1 x10^3/uL (1.0-4.8) Monocytes # (Auto) 0.4 x10^3/uL (0.0-1.1) Eosinophils # (Auto) 0.1 x10^3/uL (0.0-0.7) Basophils # (Auto) 0.0 x10^3/uL (0.0-0.2) Prothrombin Time 13.5 SEC (11.7-14.0) Prothromb Time International Ratio 1.1 (0.8-1.1) Activated Partial Thromboplast Time 26 SEC (24-38) Sodium Level 141 mmol/L (136-145) Potassium Level 4.3 mmol/L (3.5-5.1) Chloride Level 102 mmol/L (98-107) Carbon Dioxide Level 28 mmol/L (21-32) Anion Gap 11 (6-14) Blood Urea Nitrogen 37 mg/dL (8-26) Creatinine 3.7 mg/dL (0.7-1.3) Estimated GFR (Cockcroft-Gault) 16.6 BUN/Creatinine Ratio 10 (6-20) Glucose Level 496 mg/dL (70-99) Calcium Level 8.4 mg/dL (8.5-10.1) Total Bilirubin 0.3 mg/dL (0.2-1.0) Aspartate Amino Transf (AST/SGOT) 9 U/L (15-37) Alanine Aminotransferase (ALT/SGPT) 9 U/L (16-63) Alkaline Phosphatase 75 U/L (46-116) Total Protein 5.9 g/dL (6.4-8.2) Albumin 2.7 g/dL (3.4-5.0) Albumin/Globulin Ratio 0.8 (1.0-1.7) Glucose (Fingerstick) 426 mg/dL (70-99) VTE Prophylaxis Ordered VTE Prophylaxis Devices: Yes VTE Pharmacological Prophylaxi: No Assessment/Plan Assessment/Plan AVF bleeding recent Left AVF transposition 06/01 Anemia of ESRD, acute bleeding from AVF uncontrolled dm2 on insulin seizure/epilepsy ESRD on dialysis TTSat recent NSTEMI status post LHC 02/08/18, 3 vessel disease Bilateral heel ulcer Wheelchair-bound Thrombocytopenia chronic stable systolic CHF with ef 35% recent Three-vessel disease, poor surgical candidate, planned for staged PCI? h/o GPC bacteremia, MRSA Incarcerated plan: admit to ICU to close watch IR did HD cath, renal consult for HD vascular consult, will take pt to OR today 1u PRBC transfusion add lantus 20u qhs, 5u humalog tid ac, ssi, check hba1c cont home meds but hold asa, plavix, htn meds. hold resume asa, plavix tmr npo for now waiting for sx fentanyl iv prn for pain control MANINDER VILLA MD Jun 02, 2018 14:38
[2018-06-02] MEDS ORDERED: LIDOCAINE 1% 20 ML VIAL. ONE (15:19)
[2018-06-02] MEDS ORDERED: THROMBIN TOPICAL 20,000 UNIT SPRAY.SYRN KIT TP ONE (15:20)
[2018-06-02] MEDS ORDERED: SURGICEL FIBRILLAR 1X2 EACH. ONE (15:20)
[2018-06-02] MEDS ORDERED: POVIDONE-IODINE 10% TOPICAL OINTMENT 28GM TUBE. TP ONE (15:20)
[2018-06-02] MEDS ORDERED: PROTAMINE 50 MG/5 ML VIAL. IV ONE (15:20)
[2018-06-02] MEDS ORDERED: PAPAVERINE 60 MG/2 ML VIAL FOR OR ONLY. ONE (15:20)
[2018-06-02] MEDS ORDERED: THROMBIN TOPICAL 5,000 UNIT VIAL. ONE (15:21)
[2018-06-02] MEDS ORDERED: PHENYLEPHRINE in 0.9% NACL PF 1 MG/10 ML SYRINGE. IV ONE (15:32)
[2018-06-02] MEDS ORDERED: DEXAMETHASONE SOD PHOS 20 MG/5 ML VIAL. ONE (15:32)
[2018-06-02] MEDS ORDERED: SEVOFLURANE 31 TO 60 MINUTES. IH ONE (15:32)
[2018-06-02] MEDS ORDERED: PROPOFOL 20 ML IV ONE (15:32)
[2018-06-02] MEDS ORDERED: ONDANSETRON PF 4 MG/2 ML VIAL. ONE (15:32)
--- NOTE | 2018-06-02 15:45 | PDOC2 ---
CONSULT Date of Consult Date of Consult DATE: 06/02/18 TIME: 15:30 Reason for Consult Reason for Consult: ESRD Source Source: Caregiver, Chart review, Patient History of Present Illness Reason for Visit: Patient is a 67 year old CM , inmate at was brought by EMS from senior living HD center for left arm AVF bleeding. He is a TTS dialysis Patient Yesterday, he had a transposition of left arm AVF . Today HD staff tired to acces the AV fistula 3 times at the senior living -pt started severe bleeding at the site of puncture. They could not stop the bleeding and pt was hypotensive to 70- 80s. Pt left upper arm was wrapped tight with large band of rubber material to stop the bleeding.He presented to ER here with the dialysis needles still in the AV fistula. Pt is scheduled to go to OR this afternoon He is on ASA, Plavix for CAD, recent NSTEMI with stent s He is c/o Pain in Lt arm. Ni N/V/D/F/C. States makes good urine. Has been on HD for a year Past Medical History Cardiovascular: CAD, HTN Heme/Onc: Anemia NOS Renal/: Chronic renal failure, Benign prostatic enlarg. Endocrine: Diabetes, Hyperparathyroidism Past Surgical History Past Surgical History: No pertinent history Family History Family History: Coronary Artery Disease, Hypertension Social History No ALCOHOL: none Drugs: None Current Problem List Problem List Problems Medical Problems: (1) Anemia Status: Acute (2) AV fistula thrombosis Status: Acute Current Medications Current Medications Current Medications Heparin Sodium (Porcine) 5000 unit/Sodium Chloride 505 ml @ 505 mls/hr 1X ONCE IRR ; Start 06/02/18 at 11:00; Stop 06/02/18 at 11:59; Status DC Cefazolin Sodium 1 gm/Sodium Chloride 500 ml @ 500 mls/hr 1X ONCE IRR ; Start 06/02/18 at 11:00; Stop 06/02/18 at 11:59; Status DC Ondansetron HCl (Zofran) 4 mg PRN Q6HRS PRN IV NAUSEA/VOMITING; Start at 10:30; Stop 06/03/18 at 10:29 Fentanyl Citrate (Fentanyl 2ml Vial) 25 mcg PRN Q5MIN PRN IV MILD PAIN; Start 06/02/18 at 10:30; Stop 06/03/18 at 10:29 Fentanyl Citrate (Fentanyl 2ml Vial) 50 mcg PRN Q5MIN PRN IV MODERATE TO SEVERE PAIN; Start 06/02/18 at 10:30; Stop 06/03/18 at 10:29 Morphine Sulfate (Morphine Sulfate) 1 mg PRN Q10MIN PRN IV SEVERE PAIN; Start 06/02/18 at 10:30; Stop 06/03/18 at 10:29; Status UNV Ringer's Solution 1,000 ml @ 30 mls/hr Q24H IV ; Start 06/02/18 at 10:22; Stop 06/02/18 at 22:21 Lidocaine HCl (Xylocaine-Mpf 1% 2ml Vial) 2 ml PRN 1X PRN ID PRIOR TO IV START ; Start 06/02/18 at 10:30; Stop 06/03/18 at 10:29 Hydromorphone HCl (Dilaudid) 0.5 mg PRN Q10MIN PRN IV SEV PAIN, Second choice; Start 06/02/18 at 10:30; Stop 06/03/18 at 10:29; Status UNV Prochlorperazine Edisylate (Compazine) 5 mg PACU PRN PRN IV NAUSEA, MRX1; Start 06/02/18 at 10:30; Stop 06/03/18 at 10:29 Lidocaine/Sodium Bicarbonate (Buffered Lidocaine 1%) 3 ml STK-MED ONCE .ROUTE ; Start 06/02/18 at 11:24; Stop 06/02/18 at 11:25; Status DC Heparin Sodium (Porcine) (Heparin Sodium) 10,000 unit STK-MED ONCE .ROUTE ; Start 06/02/18 at 11:24; Stop 06/02/18 at 11:25; Status DC Lidocaine/Sodium Bicarbonate (Buffered Lidocaine 1%) 3 ml 1X ONCE INJ Last administered on 06/02/18at 12:10; Start 06/02/18 at 11:45; Stop 06/02/18 at 11 :46; Status DC Heparin Sodium (Porcine) (Heparin Sodium) 2,500 unit 1X ONCE INT CAT Last administered on 06/02/18at 12:10; Start 06/02/18 at 11:45; Stop 06/02/18 at 11 :46; Status DC Insulin Human Lispro (HumaLOG) 15 units 1X ONCE SQ Last administered on at 14:24; Start 06/02/18 at 13:30; Stop 06/02/18 at 13:31; Status DC Atorvastatin Calcium (Lipitor) 20 mg QHS PO ; Start 06/02/18 at 21:00 Divalproex Sodium (Depakote) 500 mg BID PO ; Start 06/02/18 at 21:00 Famotidine (Pepcid) 20 mg QHS PO ; Start 06/02/18 at 21:00 Acetaminophen (Tylenol) 650 mg PRN Q6HRS PRN PO FEVER; Start 06/02/18 at 14:30 Ondansetron HCl (Zofran) 4 mg PRN Q6HRS PRN IV NAUSEA/VOMITING; Start at 14:30 Docusate Sodium (Colace) 100 mg PRN DAILY PRN PO CONSTIPATION; Start 06/02/18 at 14:30 Fentanyl Citrate (Fentanyl 2ml Vial) 50 mcg PRN Q2HR PRN IV PAIN; Start at 14:30 Insulin Human Lispro (HumaLOG) 0-9 UNITS TIDWMEALS SQ ; Start 06/02/18 at 17:00 Dextrose (Dextrose 50%-Water Syringe) 12.5 gm PRN Q15MIN PRN IV SEE COMMENTS; Start 06/02/18 at 14:30 Insulin Glargine (Lantus) 20 units QHS SQ ; Start 06/02/18 at 21:00 Insulin Human Lispro (HumaLOG) 5 units TIDAC SQ ; Start 06/02/18 at 16:30 Active Scripts Active Furosemide 40 Mg Tablet 20 Mg PO DAILY 30 Days Aspirin Ec (Aspirin) 81 Mg Tablet.dr 81 Mg PO DAILYWBKFT 30 Days Atorvastatin Calcium 20 Mg Tablet 20 Mg PO QHS 30 Days Clopidogrel (Clopidogrel Bisulfate) 75 Mg Tablet 75 Mg PO DAILYWBKFT 30 Days Reported Lactulose 20 Gm/30 Ml Solution 10 Gm PO BID Tylenol (Acetaminophen) 325 Mg Tablet 975 Mg PO PRN QID Ranitidine Hcl 300 Mg Capsule 300 Mg PO HS Calcium Carbonate 500 Mg/5 Ml Oral.susp 1,000 Mg PO BID Humulin N (Nph, Human Insulin Isophane) 100 Unit/1 Ml Vial 5 Unit SQ BID Humulin R (Insulin Regular, Human) 100 Unit/1 Ml Vial 0 IJ sliding scale Tamsulosin Hcl 0.4 Mg Cap.er.24h 0.8 Mg PO DAILY patient takes 2 tablets daily of 0.4mg strength Depakote (Divalproex Sodium) 500 Mg Tablet. 1 Tab PO BID Allergies Allergies: Coded Allergies: morphine (Verified Allergy, Intermediate, 06/01/18) I S O L A T I O N *CONTACT* (Verified Allergy, Unknown, 06/01/18) mrsa ROS Review of System As per HPI Physical Exam Physical Exam GEN.: No apparent distress. HEENT: OM dry NECK: Supple. LUNGS: Clear to auscultation. HEART: RRR, S1, S2 present. ABDOMEN: Soft, nontender. Positive bowel sounds. EXTREMITIES: left arm wrapped NEUROLOGIC: Normal speech, AxO x3 , Grossly Normal SKIN: No Rash - No macias Vital Signs Vital Signs Date Time Temp Pulse Resp B/P (MAP) Pulse Ox O2 Delivery O2 Flow Rate FiO2 06/02/18 15:23 98.2 85 14 100/52 98.2 06/02/18 14:00 98 06/02/18 12:58 Room Air Assessment & Plan ESRD TTS at [facility] Was in Dialysis this am , AVF started to bleed during attempt to access it by Staff Rt Sided temp Dialysis catheter placed E-Lytes and No e/o Volume overload , Hypotensive Scheduled for OR this afternoon. Currently No emergent Indication for HD Will schedule for tomorrow AVF bleeding- recent Left AVF transposition 06/01 Scheduled for OR this afternoon Anemia - acute bleeding from AVF PRBC as per Primary Uncontrolled DM - on insulin Seizure/epilepsy Recent NSTEMI status po st C 02/08/18, 3 vessel disease On Plavix and ASA CHF with ef 35% Compensated Thrombocytpenia - chronic Discussed with pt and RN Labs Labs Laboratory Tests Test 06/02/18 09:45 06/02/18 12:47 White Blood Count 4.0 x10^3/uL (4.0-11.0) Red Blood Count 2.55 x10^6/uL (4.30-5.70) Hemoglobin 7.3 g/dL (13.0-17.5) Hematocrit 22.2 % (39.0-53.0) Mean Corpuscular Volume 87 fL (79-100) Mean Corpuscular Hemoglobin 29 pg (25-35) Mean Corpuscular Hemoglobin Concent 33 g/dL (31-37) Red Cell Distribution Width 15.0 % (11.5-14.5) Platelet Count 57 x10^3/uL (140-400) Neutrophils (%) (Auto) 62 % (31-73) Lymphocytes (%) (Auto) 26 % (24-48) Monocytes (%) (Auto) 10 % (0-9) Eosinophils (%) (Auto) 2 % (0-3) Basophils (%) (Auto) 1 % (0-3) Neutrophils # (Auto) 2.5 x10^3uL (1.8-7.7) Lymphocytes # (Auto) 1.1 x10^3/uL (1.0-4.8) Monocytes # (Auto) 0.4 x10^3/uL (0.0-1.1) Eosinophils # (Auto) 0.1 x10^3/uL (0.0-0.7) Basophils # (Auto) 0.0 x10^3/uL (0.0-0.2) Prothrombin Time 13.5 SEC (11.7-14.0) Prothromb Time International Ratio 1.1 (0.8-1.1) Activated Partial Thromboplast Time 26 SEC (24-38) Sodium Level 141 mmol/L (136-145) Potassium Level 4.3 mmol/L (3.5-5.1) Chloride Level 102 mmol/L (98-107) Carbon Dioxide Level 28 mmol/L (21-32) Anion Gap 11 (6-14) Blood Urea Nitrogen 37 mg/dL (8-26) Creatinine 3.7 mg/dL (0.7-1.3) Estimated GFR (Cockcroft-Gault) 16.6 BUN/Creatinine Ratio 10 (6-20) Glucose Level 496 mg/dL (70-99) Calcium Level 8.4 mg/dL (8.5-10.1) Total Bilirubin 0.3 mg/dL (0.2-1.0) Aspartate Amino Transf (AST/SGOT) 9 U/L (15-37) Alanine Aminotransferase (ALT/SGPT) 9 U/L (16-63) Alkaline Phosphatase 75 U/L (46-116) Total Protein 5.9 g/dL (6.4-8.2) Albumin 2.7 g/dL (3.4-5.0) Albumin/Globulin Ratio 0.8 (1.0-1.7) Glucose (Fingerstick) 426 mg/dL (70-99) Laboratory Tests Test 06/02/18 09:45 06/02/18 12:47 White Blood Count 4.0 x10^3/uL (4.0-11.0) Red Blood Count 2.55 x10^6/uL (4.30-5.70) Hemoglobin 7.3 g/dL (13.0-17.5) Hematocrit 22.2 % (39.0-53.0) Mean Corpuscular Volume 87 fL (79-100) Mean Corpuscular Hemoglobin 29 pg (25-35) Mean Corpuscular Hemoglobin Concent 33 g/dL (31-37) Red Cell Distribution Width 15.0 % (11.5-14.5) Platelet Count 57 x10^3/uL (140-400) Neutrophils (%) (Auto) 62 % (31-73) Lymphocytes (%) (Auto) 26 % (24-48) Monocytes (%) (Auto) 10 % (0-9) Eosinophils (%) (Auto) 2 % (0-3) Basophils (%) (Auto) 1 % (0-3) Neutrophils # (Auto) 2.5 x10^3uL (1.8-7.7) Lymphocytes # (Auto) 1.1 x10^3/uL (1.0-4.8) Monocytes # (Auto) 0.4 x10^3/uL (0.0-1.1) Eosinophils # (Auto) 0.1 x10^3/uL (0.0-0.7) Basophils # (Auto) 0.0 x10^3/uL (0.0-0.2) Prothrombin Time 13.5 SEC (11.7-14.0) Prothromb Time International Ratio 1.1 (0.8-1.1) Activated Partial Thromboplast Time 26 SEC (24-38) Sodium Level 141 mmol/L (136-145) Potassium Level 4.3 mmol/L (3.5-5.1) Chloride Level 102 mmol/L (98-107) Carbon Dioxide Level 28 mmol/L (21-32) Anion Gap 11 (6-14) Blood Urea Nitrogen 37 mg/dL (8-26) Creatinine 3.7 mg/dL (0.7-1.3) Estimated GFR (Cockcroft-Gault) 16.6 BUN/Creatinine Ratio 10 (6-20) Glucose Level 496 mg/dL (70-99) Calcium Level 8.4 mg/dL (8.5-10.1) Total Bilirubin 0.3 mg/dL (0.2-1.0) Aspartate Amino Transf (AST/SGOT) 9 U/L (15-37) Alanine Aminotransferase (ALT/SGPT) 9 U/L (16-63) Alkaline Phosphatase 75 U/L (46-116) Total Protein 5.9 g/dL (6.4-8.2) Albumin 2.7 g/dL (3.4-5.0) Albumin/Globulin Ratio 0.8 (1.0-1.7) Glucose (Fingerstick) 426 mg/dL (70-99) Review All relevant outside records, renal labs, imaging studies, telemetry/EKG's were reviewed. RADHA HUDSON MD Jun 02, 2018 15:44
[2018-06-02] MEDS: INSULIN LISPRO 300 UNITS/3 ML INSULN.PEN. SQ SCH ×2 (16:30→17:00)
[2018-06-02] MEDS ORDERED: ePHEDrine PF IN SALINE 50 MG/5 ML DISP.SYRIN IV ONE (17:32)
[2018-06-02] MEDS ORDERED: ceFAZolin SODIUM 1 GM VIAL ONE (17:34)
[2018-06-02] MEDS ORDERED: LIDOCAINE 1% 20 ML VIAL. IJ ONE (17:45)
--- NOTE | 2018-06-02 18:09 | PDOC4 ---
OPERATIVE NOTE: Op note dictated Dx: 1. status post transposition left brachiobasilic AV fistula with bleeding post access Op: 1. placement of cuffed dialysis catheter Surg: Chente GOT to rr in sat cond. CLAUS VERDUZCO II, MD Jun 02, 2018 18:09
[2018-06-02] MEDS ORDERED: INSULIN LISPRO 100 UNIT/ML 3ML VIAL. SQ ONE (18:45)
--- NOTE | 2018-06-02 19:42 | OP ---
DATE OF SURGERY: 06/02/2018 PREOPERATIVE DIAGNOSIS: End-stage renal disease, status post transposition of a left brachiobasilic arteriovenous fistula. OPERATION PERFORMED: Placement of a cuffed permanent dialysis catheter, right internal jugular vein. SURGEON: Rocky Eldridge M.D. PROBATION AND PAROLE OFFICER: None. ANESTHESIA: General. INDICATIONS: This is a 67-year-old gentleman who had a left brachiobasilic AV fistula transposed yesterday. There was a segment of vein distally that the dialysis center was using for access and following a transposition, I felt that it would be okay to use this portion since they have been used successfully previously. Apparently, there was some bleeding issue and the patient came to the Emergency Room with a tourniquet around the arm. It was suspected that the fistula was thrombosed by the Emergency Room physician; however, on subsequent examination after the dressing was removed in the Operating Room, there was an excellent thrill over the fistula. There was no significant hematoma and no significant swelling of the arm. There was excellent Doppler flow at the wrist, both radial and ulnar artery. The patient had a noncuffed dialysis catheter placed earlier by Interventional Radiology in the internal jugular vein. This needs to be changed to a cuffed dialysis catheter, so that the patient can leave the facility tomorrow. DESCRIPTION OF PROCEDURE: The right chest area was prepped and draped. Incision was made in the neck and the catheter that was inserted earlier was dissected and brought out through the small incision and then clamped proximally. The catheter was divided. A cuffed dialysis catheter, 19 cm long was then placed in a subcutaneous tunnel and brought out through the small incision. A guiding guidewire was then placed through the existing catheter, which was removed over the guidewire. A dilator sheath was then placed over the guidewire and the dilator and guidewire were then removed and the catheter was placed through the sheath, which was then split, the catheter securely in place. Position was then checked with fluoroscopy and was excellent. The small cervical incision was then approximated in layers with absorbable suture and a Steri-Strip. Catheter was secured to the skin with a 3-0 nylon and sterile dressings were applied. All sponge and needle counts were reported as correct. ROCKY ELDRIDGE MD DR: VAHID/celena JOB#: [id number] / [id number]
[2018-06-02] MEDS ORDERED: FAMOTIDINE 20 MG TABLET. PO SCH (21:00)
[2018-06-02] MEDS ORDERED: INSULIN GLARGINE 300 UNITS/3 ML INSULN.PEN. SQ SCH (21:00)
[2018-06-02] MEDS ORDERED: ATORVASTATIN CALCIUM 20 MG TABLET PO SCH (21:00)
[2018-06-02] MEDS: DIVALPROEX DELAYED RELEASE 500 MG TABLET.DR. PO SCH (21:58)
[2018-06-03 01:17] LABS: HEMOGLOBIN A1C 10.8 % (4.8-5.6)
[2018-06-03 03:00] VITALS: BP 122/54
[2018-06-03 04:38] LABS: BASO % 1 % (0-3); EOS % 0 % (0-3); LYMPH # 0.8 x10^3/uL (1.0-4.8); LYMPH % 25 % (24-48); MEAN CORPUSCULAR HEMOGLOBIN 30 pg (25-35); MEAN CORPUSCULAR HGB CONC 35 g/dL (31-37); MEAN CORPUSCULAR VOLUME 86 fL (79-100); MONO # 0.3 x10^3/uL (0.0-1.1); MONO % 9 % (0-9); NEUT # 2.1 x10^3uL (1.8-7.7); NEUT % 65 % (31-73); PLATELET COUNT 46 x10^3/uL (140-400); RED BLOOD COUNT 2.33 x10^6/uL (4.30-5.70); RED CELL DISTRIBUTION WIDTH 15.2 % (11.5-14.5); WHITE BLOOD COUNT 3.3 x10^3/uL (4.0-11.0)
[2018-06-03 05:02] LABS: CALCIUM 7.9 mg/dL (8.5-10.1); CREATININE 3.8 mg/dL (0.7-1.3); GFR 16.1; POTASSIUM 5.3 mmol/L (3.5-5.1)
[2018-06-03 05:33] LABS: HEMATOCRIT 20.1 % (39.0-53.0)
[2018-06-03 07:00] VITALS: BP 118/52
[2018-06-03] MEDS: DIVALPROEX DELAYED RELEASE 500 MG TABLET.DR. PO SCH (08:41)
[2018-06-03] MEDS: INSULIN LISPRO 300 UNITS/3 ML INSULN.PEN. SQ SCH ×6 (08:44→17:44)
[2018-06-03 10:43] VITALS: BP 115/48
[2018-06-03] MEDS ORDERED: IV NORMAL SALINE 1000ML BAG 1,000 ML IV PRN ×2 (11:38)
[2018-06-03] MEDS ORDERED: 0.9 % SODIUM CHLORIDE 10 ML DISP.SYRIN. IV PRN ×2 (11:45)
[2018-06-03] MEDS ORDERED: ALBUMIN HUMAN 25% 200 ML IV PRN (11:45)
[2018-06-03] MEDS ORDERED: DIALYSIS PATIENT. MC PRN ×2 (11:45)
[2018-06-03 12:00] VITALS: BP 116/53
[2018-06-03 13:00] VITALS: BP 131/50
--- NOTE | 2018-06-03 15:20 | PDOC ---
PROGRESS NOTES Chief Complaint Chief Complaint Acute blood loss anemia ESRD on dialysis History of Present Illness History of Present Illness Patient is a 67 year old CM , inmate at [facility] for left arm AVF bleeding. He is a TTS dialysis. 2 days ago he had a transposition of left arm AVF. After HD access could not stop the bleeding and pt was hypotensive to 70-80s and was readmitted with dialysis needles in his arm. He is on ASA, Plavix for CAD, recent NSTEMI with stents He is c/o Pain in Lt arm. Ni N/V/D/F/C. placement of cuffed dialysis catheter in OR yesterday and symptomatically anemic today A/P: Blood loss anemia - transfusion today, then possibly for d/c ESRD - AVF bleeding s/p cuffed dialysis catheter and tunneled dialysis catheter. CAD - ASA and plavix for stents Diet - Renal PPX - Heparin FULL CODE Possibly home if stable, will check with nephrology Vitals Vitals Vital Signs Date Time Temp Pulse Resp B/P (MAP) Pulse Ox O2 Delivery O2 Flow Rate FiO2 06/03/18 13:00 97.9 93 16 131/50 97.9 06/03/18 07:35 Room Air 06/03/18 07:00 94 06/02/18 18:36 10 Physical Exam General: Alert, Oriented X3, Cooperative, No acute distress Lungs: Clear, Other Extremities: Other (RUE wrapped, right hand has petechiae) Labs LABS Laboratory Tests Test 06/02/18 18:24 06/02/18 20:16 06/03/18 03:45 06/03/18 07:53 Glucose (Fingerstick) 315 mg/dL (70-99) 237 mg/dL (70-99) 288 mg/dL (70-99) White Blood Count 3.3 x10^3/uL (4.0-11.0) Red Blood Count 2.33 x10^6/uL (4.30-5.70) Hemoglobin 7.0 g/dL (13.0-17.5) Hematocrit 20.1 % (39.0-53.0) Mean Corpuscular Volume 86 fL (79-100) Mean Corpuscular Hemoglobin 30 pg (25-35) Mean Corpuscular Hemoglobin Concent 35 g/dL (31-37) Red Cell Distribution Width 15.2 % (11.5-14.5) Platelet Count 46 x10^3/uL (140-400) Neutrophils (%) (Auto) 65 % (31-73) Lymphocytes (%) (Auto) 25 % (24-48) Monocytes (%) (Auto) 9 % (0-9) Eosinophils (%) (Auto) 0 % (0-3) Basophils (%) (Auto) 1 % (0-3) Neutrophils # (Auto) 2.1 x10^3uL (1.8-7.7) Lymphocytes # (Auto) 0.8 x10^3/uL (1.0-4.8) Monocytes # (Auto) 0.3 x10^3/uL (0.0-1.1) Eosinophils # (Auto) 0.0 x10^3/uL (0.0-0.7) Basophils # (Auto) 0.0 x10^3/uL (0.0-0.2) Sodium Level 143 mmol/L (136-145) Potassium Level 5.3 mmol/L (3.5-5.1) Chloride Level 106 mmol/L (98-107) Carbon Dioxide Level 26 mmol/L (21-32) Anion Gap 11 (6-14) Blood Urea Nitrogen 35 mg/dL (8-26) Creatinine 3.8 mg/dL (0.7-1.3) Estimated GFR (Cockcroft-Gault) 16.1 Glucose Level 343 mg/dL (70-99) Calcium Level 7.9 mg/dL (8.5-10.1) Test 06/03/18 11:33 Glucose (Fingerstick) 272 mg/dL (70-99) Assessment and Plan Assessmemt and Plan Problems Medical Problems: (1) Anemia Status: Acute (2) AV fistula thrombosis Status: Acute Comment Review of Relevant I have reviewed the following items carmela (where applicable) has been applied. Labs Laboratory Tests Test 06/02/18 09:45 06/02/18 12:47 06/02/18 14:12 06/02/18 18:24 White Blood Count 4.0 x10^3/uL (4.0-11.0) Red Blood Count 2.55 x10^6/uL (4.30-5.70) Hemoglobin 7.3 g/dL (13.0-17.5) Hematocrit 22.2 % (39.0-53.0) Mean Corpuscular Volume 87 fL (79-100) Mean Corpuscular Hemoglobin 29 pg (25-35) Mean Corpuscular Hemoglobin Concent 33 g/dL (31-37) Red Cell Distribution Width 15.0 % (11.5-14.5) Platelet Count 57 x10^3/uL (140-400) Neutrophils (%) (Auto) 62 % (31-73) Lymphocytes (%) (Auto) 26 % (24-48) Monocytes (%) (Auto) 10 % (0-9) Eosinophils (%) (Auto) 2 % (0-3) Basophils (%) (Auto) 1 % (0-3) Neutrophils # (Auto) 2.5 x10^3uL (1.8-7.7) Lymphocytes # (Auto) 1.1 x10^3/uL (1.0-4.8) Monocytes # (Auto) 0.4 x10^3/uL (0.0-1.1) Eosinophils # (Auto) 0.1 x10^3/uL (0.0-0.7) Basophils # (Auto) 0.0 x10^3/uL (0.0-0.2) Prothrombin Time 13.5 SEC (11.7-14.0) Prothromb Time International Ratio 1.1 (0.8-1.1) Activated Partial Thromboplast Time 26 SEC (24-38) Sodium Level 141 mmol/L (136-145) Potassium Level 4.3 mmol/L (3.5-5.1) Chloride Level 102 mmol/L (98-107) Carbon Dioxide Level 28 mmol/L (21-32) Anion Gap 11 (6-14) Blood Urea Nitrogen 37 mg/dL (8-26) Creatinine 3.7 mg/dL (0.7-1.3) Estimated GFR (Cockcroft-Gault) 16.6 BUN/Creatinine Ratio 10 (6-20) Glucose Level 496 mg/dL (70-99) Hemoglobin A1c 10.8 % (4.8-5.6) Calcium Level 8.4 mg/dL (8.5-10.1) Total Bilirubin 0.3 mg/dL (0.2-1.0) Aspartate Amino Transf (AST/SGOT) 9 U/L (15-37) Alanine Aminotransferase (ALT/SGPT) 9 U/L (16-63) Alkaline Phosphatase 75 U/L (46-116) Total Protein 5.9 g/dL (6.4-8.2) Albumin 2.7 g/dL (3.4-5.0) Albumin/Globulin Ratio 0.8 (1.0-1.7) Glucose (Fingerstick) 426 mg/dL (70-99) 315 mg/dL (70-99) Nasal Screen MRSA (PCR) Positive (Negative) Test 06/02/18 20:16 06/03/18 03:45 06/03/18 07:53 06/03/18 11:33 Glucose (Fingerstick) 237 mg/dL (70-99) 288 mg/dL (70-99) 272 mg/dL (70-99) White Blood Count 3.3 x10^3/uL (4.0-11.0) Red Blood Count 2.33 x10^6/uL (4.30-5.70) Hemoglobin 7.0 g/dL (13.0-17.5) Hematocrit 20.1 % (39.0-53.0) Mean Corpuscular Volume 86 fL (79-100) Mean Corpuscular Hemoglobin 30 pg (25-35) Mean Corpuscular Hemoglobin Concent 35 g/dL (31-37) Red Cell Distribution Width 15.2 % (11.5-14.5) Platelet Count 46 x10^3/uL (140-400) Neutrophils (%) (Auto) 65 % (31-73) Lymphocytes (%) (Auto) 25 % (24-48) Monocytes (%) (Auto) 9 % (0-9) Eosinophils (%) (Auto) 0 % (0-3) Basophils (%) (Auto) 1 % (0-3) Neutrophils # (Auto) 2.1 x10^3uL (1.8-7.7) Lymphocytes # (Auto) 0.8 x10^3/uL (1.0-4.8) Monocytes # (Auto) 0.3 x10^3/uL (0.0-1.1) Eosinophils # (Auto) 0.0 x10^3/uL (0.0-0.7) Basophils # (Auto) 0.0 x10^3/uL (0.0-0.2) Sodium Level 143 mmol/L (136-145) Potassium Level 5.3 mmol/L (3.5-5.1) Chloride Level 106 mmol/L (98-107) Carbon Dioxide Level 26 mmol/L (21-32) Anion Gap 11 (6-14) Blood Urea Nitrogen 35 mg/dL (8-26) Creatinine 3.8 mg/dL (0.7-1.3) Estimated GFR (Cockcroft-Gault) 16.1 Glucose Level 343 mg/dL (70-99) Calcium Level 7.9 mg/dL (8.5-10.1) Laboratory Tests Test 06/02/18 18:24 06/02/18 20:16 06/03/18 03:45 06/03/18 07:53 Glucose (Fingerstick) 315 mg/dL (70-99) 237 mg/dL (70-99) 288 mg/dL (70-99) White Blood Count 3.3 x10^3/uL (4.0-11.0) Red Blood Count 2.33 x10^6/uL (4.30-5.70) Hemoglobin 7.0 g/dL (13.0-17.5) Hematocrit 20.1 % (39.0-53.0) Mean Corpuscular Volume 86 fL (79-100) Mean Corpuscular Hemoglobin 30 pg (25-35) Mean Corpuscular Hemoglobin Concent 35 g/dL (31-37) Red Cell Distribution Width 15.2 % (11.5-14.5) Platelet Count 46 x10^3/uL (140-400) Neutrophils (%) (Auto) 65 % (31-73) Lymphocytes (%) (Auto) 25 % (24-48) Monocytes (%) (Auto) 9 % (0-9) Eosinophils (%) (Auto) 0 % (0-3) Basophils (%) (Auto) 1 % (0-3) Neutrophils # (Auto) 2.1 x10^3uL (1.8-7.7) Lymphocytes # (Auto) 0.8 x10^3/uL (1.0-4.8) Monocytes # (Auto) 0.3 x10^3/uL (0.0-1.1) Eosinophils # (Auto) 0.0 x10^3/uL (0.0-0.7) Basophils # (Auto) 0.0 x10^3/uL (0.0-0.2) Sodium Level 143 mmol/L (136-145) Potassium Level 5.3 mmol/L (3.5-5.1) Chloride Level 106 mmol/L (98-107) Carbon Dioxide Level 26 mmol/L (21-32) Anion Gap 11 (6-14) Blood Urea Nitrogen 35 mg/dL (8-26) Creatinine 3.8 mg/dL (0.7-1.3) Estimated GFR (Cockcroft-Gault) 16.1 Glucose Level 343 mg/dL (70-99) Calcium Level 7.9 mg/dL (8.5-10.1) Test 06/03/18 11:33 Glucose (Fingerstick) 272 mg/dL (70-99) Medications Current Medications Heparin Sodium (Porcine) 5000 unit/Sodium Chloride 505 ml @ 505 mls/hr 1X ONCE IRR ; Start 06/02/18 at 11:00; Stop 06/02/18 at 11:59; Status DC Cefazolin Sodium 1 gm/Sodium Chloride 500 ml @ 500 mls/hr 1X ONCE IRR ; Start 06/02/18 at 11:00; Stop 06/02/18 at 11:59; Status DC Ondansetron HCl (Zofran) 4 mg PRN Q6HRS PRN IV NAUSEA/VOMITING; Start at 10:30; Stop 06/02/18 at 20:30; Status DC Fentanyl Citrate (Fentanyl 2ml Vial) 25 mcg PRN Q5MIN PRN IV MILD PAIN; Start 06/02/18 at 10:30; Stop 06/02/18 at 20:27; Status DC Fentanyl Citrate (Fentanyl 2ml Vial) 50 mcg PRN Q5MIN PRN IV MODERATE TO SEVERE PAIN; Start 06/02/18 at 10:30; Stop 06/02/18 at 20:27; Status DC Morphine Sulfate (Morphine Sulfate) 1 mg PRN Q10MIN PRN IV SEVERE PAIN; Start 06/02/18 at 10:30; Stop 06/03/18 at 10:29; Status UNV Ringer's Solution 1,000 ml @ 30 mls/hr Q24H IV ; Start 06/02/18 at 10:22; Stop 06/02/18 at 20:27; Status DC Lidocaine HCl (Xylocaine-Mpf 1% 2ml Vial) 2 ml PRN 1X PRN ID PRIOR TO IV START ; Start 06/02/18 at 10:30; Stop 06/02/18 at 20:30; Status DC Hydromorphone HCl (Dilaudid) 0.5 mg PRN Q10MIN PRN IV SEV PAIN, Second choice; Start 06/02/18 at 10:30; Stop 06/03/18 at 10:29; Status UNV Prochlorperazine Edisylate (Compazine) 5 mg PACU PRN PRN IV NAUSEA, MRX1; Start 06/02/18 at 10:30; Stop 06/02/18 at 20:27; Status DC Lidocaine/Sodium Bicarbonate (Buffered Lidocaine 1%) 3 ml STK-MED ONCE .ROUTE ; Start 06/02/18 at 11:24; Stop 06/02/18 at 11:25; Status DC Heparin Sodium (Porcine) (Heparin Sodium) 10,000 unit STK-MED ONCE .ROUTE ; Start 06/02/18 at 11:24; Stop 06/02/18 at 11:25; Status DC Lidocaine/Sodium Bicarbonate (Buffered Lidocaine 1%) 3 ml 1X ONCE INJ Last administered on 06/02/18at 12:10; Start 06/02/18 at 11:45; Stop 06/02/18 at 11 :46; Status DC Heparin Sodium (Porcine) (Heparin Sodium) 2,500 unit 1X ONCE INT CAT Last administered on 06/02/18at 12:10; Start 06/02/18 at 11:45; Stop 06/02/18 at 11 :46; Status DC Insulin Human Lispro (HumaLOG) 15 units 1X ONCE SQ Last administered on at 14:24; Start 06/02/18 at 13:30; Stop 06/02/18 at 13:31; Status DC Atorvastatin Calcium (Lipitor) 20 mg QHS PO Last administered on 06/02/18at 21: 58; Start 06/02/18 at 21:00 Divalproex Sodium (Depakote) 500 mg BID PO Last administered on 06/03/18at 08: 41; Start 06/02/18 at 21:00 Famotidine (Pepcid) 20 mg QHS PO Last administered on 06/02/18at 21:58; Start 06/02/18 at 21:00 Acetaminophen (Tylenol) 650 mg PRN Q6HRS PRN PO FEVER; Start 06/02/18 at 14:30 Ondansetron HCl (Zofran) 4 mg PRN Q6HRS PRN IV NAUSEA/VOMITING; Start at 14:30 Docusate Sodium (Colace) 100 mg PRN DAILY PRN PO CONSTIPATION; Start 06/02/18 at 14:30 Fentanyl Citrate (Fentanyl 2ml Vial) 50 mcg PRN Q2HR PRN IV PAIN; Start at 14:30 Insulin Human Lispro (HumaLOG) 0-9 UNITS TIDWMEALS SQ Last administered on at 12:56; Start 06/02/18 at 17:00 Dextrose (Dextrose 50%-Water Syringe) 12.5 gm PRN Q15MIN PRN IV SEE COMMENTS; Start 06/02/18 at 14:30 Insulin Glargine (Lantus) 20 units QHS SQ Last administered on 06/02/18at 22:05 ; Start 06/02/18 at 21:00 Insulin Human Lispro (HumaLOG) 5 units TIDAC SQ Last administered on at 12:52; Start 06/02/18 at 16:30 Sevoflurane (Ultane) 30 ml STK-MED ONCE IH ; Start 06/02/18 at 15:32; Stop at 15:33; Status DC Heparin Sodium (Porcine) (Heparin Sodium) 10,000 unit STK-MED ONCE .ROUTE ; Start 06/02/18 at 15:32; Stop 06/02/18 at 15:33; Status DC Phenylephrine HCl (PHENYLEPHRINE in 0.9% NACL PF) 1 mg STK-MED ONCE IV ; Start 06/02/18 at 15:32; Stop 06/02/18 at 15:33; Status DC Ondansetron HCl (Zofran) 4 mg STK-MED ONCE .ROUTE ; Start 06/02/18 at 15:32; Stop 06/02/18 at 15:33; Status DC Propofol 20 ml @ As Directed STK-MED ONCE IV ; Start 06/02/18 at 15:32; Stop 06/02/18 at 15:33; Status DC Dexamethasone Sodium Phosphate (Decadron) 20 mg STK-MED ONCE .ROUTE ; Start at 15:32; Stop 06/02/18 at 15:33; Status DC Lidocaine HCl 20 ml STK-MED ONCE .ROUTE ; Start 06/02/18 at 15:19; Stop at 16:20; Status DC Povidone Iodine ( Betadine Oint) 28 rachel STK-MED ONCE TP ; Start 06/02/18 at 15: 20; Stop 06/02/18 at 16:20; Status DC Cellulose (Surgicel Fibrillar 1x2) 1 each STK-MED ONCE .ROUTE ; Start 06/02/18 at 15:20; Stop 06/02/18 at 16:20; Status DC Papaverine HCl 60 mg STK-MED ONCE .ROUTE ; Start 06/02/18 at 15:20; Stop 06/02 at 16:20; Status DC Protamine Sulfate (Protamine) 50 mg STK-MED ONCE IV ; Start 06/02/18 at 15:20; Stop 06/02/18 at 16:20; Status DC Thrombin 20,000 unit STK-MED ONCE TP ; Start 06/02/18 at 15:20; Stop 06/02/18 at 16:21; Status DC Thrombin (Thrombin Topical) 5,000 unit STK-MED ONCE .ROUTE ; Start 06/02/18 at 15:21; Stop 06/02/18 at 16:22; Status DC Ephedrine Sulfate (ePHEDrine PF IN SALINE SYRINGE) 50 mg STK-MED ONCE IV ; Start 06/02/18 at 17:32; Stop 06/02/18 at 17:33; Status DC Cefazolin Sodium (Ancef) 1 gm STK-MED ONCE .ROUTE ; Start 06/02/18 at 17:34; Stop 06/02/18 at 17:35; Status DC Lidocaine HCl 20 ml STK-MED ONCE IJ Last administered on 06/02/18at 17:45; Start 06/02/18 at 17:45; Stop 06/02/18 at 18:15; Status DC Insulin Human Lispro (HumaLOG VIAL) 10 unit 1X ONCE SQ Last administered on at 18:33; Start 06/02/18 at 18:45; Stop 06/02/18 at 18:46; Status DC Insulin Human Lispro (HumaLOG) 3 units 1X ONCE SQ Last administered on at 22:04; Start 06/02/18 at 20:30; Stop 06/02/18 at 20:31; Status DC Sodium Chloride 1,000 ml @ 1,000 mls/hr Q1H PRN IV hypotension; Start at 11:38; Stop 06/03/18 at 17:37 Albumin Human 200 ml @ 200 mls/hr 1X PRN PRN IV Hypotension; Start 06/03/18 at 11:45; Stop 06/03/18 at 17:44 Sodium Chloride (Normal Saline Flush) 10 ml 1X PRN PRN IV AP catheter pack; Start 06/03/18 at 11:45; Stop 06/04/18 at 11:44 Sodium Chloride (Normal Saline Flush) 10 ml 1X PRN PRN IV CLINICAL NURSING MANAGER catheter pack; Start 06/03/18 at 11:45; Stop 06/04/18 at 11:44 Sodium Chloride 1,000 ml @ 400 mls/hr Q2H30M PRN IV PATENCY; Start 06/03/18 at 11:38; Stop 06/03/18 at 23:37 Info (PHARMACY MONITORING -- do not chart) 1 each PRN DAILY PRN MC SEE COMMENTS ; Start 06/03/18 at 11:45; Status UNV Info (PHARMACY MONITORING -- do not chart) 1 each PRN DAILY PRN MC SEE COMMENTS ; Start 06/03/18 at 11:45 Active Scripts Active Furosemide 40 Mg Tablet 20 Mg PO DAILY 30 Days Aspirin Ec (Aspirin) 81 Mg Tablet.dr 81 Mg PO DAILYWBKFT 30 Days Atorvastatin Calcium 20 Mg Tablet 20 Mg PO QHS 30 Days Clopidogrel (Clopidogrel Bisulfate) 75 Mg Tablet 75 Mg PO DAILYWBKFT 30 Days Reported Lactulose 20 Gm/30 Ml Solution 10 Gm PO BID Tylenol (Acetaminophen) 325 Mg Tablet 975 Mg PO PRN QID Ranitidine Hcl 300 Mg Capsule 300 Mg PO HS Calcium Carbonate 500 Mg/5 Ml Oral.susp 1,000 Mg PO BID Humulin N (Nph, Human Insulin Isophane) 100 Unit/1 Ml Vial 5 Unit SQ BID Humulin R (Insulin Regular, Human) 100 Unit/1 Ml Vial 0 IJ sliding scale Tamsulosin Hcl 0.4 Mg Cap.er.24h 0.8 Mg PO DAILY patient takes 2 tablets daily of 0.4mg strength Depakote (Divalproex Sodium) 500 Mg Tablet. 1 Tab PO BID Vitals/I & O Vital Sign - Last 24 Hours 06/02/18 06/02/18 06/02/18 06/02/18 15:23 15:49 16:00 16:00 Temp 98.2 98.4 98.4 98.2 98.4 98.4 Pulse 85 85 86 Resp 14 14 14 B/P (MAP) 100/52 108/51 108/51 (70) Pulse Ox 98 O2 Delivery Room Air 06/02/18 06/02/18 06/02/18 06/02/18 16:49 18:08 18:29 18:36 Temp 98.4 98.1 98.4 98.1 Pulse 84 95 95 Resp 16 16 18 B/P (MAP) 107/58 109/60 95/54 Pulse Ox 100 96 O2 Delivery Simple Mask Nasal Cannula Mask O2 Flow Rate 10 06/02/18 06/02/18 06/02/18 06/02/18 18:44 19:00 20:00 20:00 Temp 98.1 98.3 98.1 98.3 Pulse 97 98 96 Resp 16 16 16 B/P (MAP) 131/71 134/61 (85) 125/56 (79) Pulse Ox 97 99 95 O2 Delivery Room Air Room Air Room Air 06/02/18 06/02/18 06/03/18 06/03/18 21:00 23:00 03:00 07:00 Temp 99.3 98.4 98.3 99.3 98.4 98.3 Pulse 94 99 98 88 Resp 16 16 18 18 B/P (MAP) 114/51 (72) 123/44 (70) 122/54 (76) 118/52 (74) Pulse Ox 94 97 98 94 O2 Delivery Room Air Room Air Room Air Room Air 06/03/18 06/03/18 06/03/18 06/03/18 07:35 10:43 12:00 13:00 Temp 98.1 97.8 97.9 98.1 97.8 97.9 Pulse 88 87 93 Resp 18 16 16 B/P (MAP) 115/48 116/53 131/50 O2 Delivery Room Air Intake and Output 06/02/18 06/02/18 06/03/18 15:00 23:00 07:00 Intake Total 350 ml 800 ml Output Total 350 ml 10 ml 300 ml Balance -350 ml 340 ml 500 ml JUDY ZIEGLER MD Jun 03, 2018 15:20
--- NOTE | 2018-06-03 15:22 | PDOC ---
SUBJECTIVE ROS S/P AVF Thrombectomy revision and placement of TDC Seen on HD, tolerating well OBJECTIVE Vital Signs Vital Signs Date Time Temp Pulse Resp B/P (MAP) Pulse Ox O2 Delivery O2 Flow Rate FiO2 06/03/18 13:00 97.9 93 16 131/50 97.9 06/03/18 07:35 Room Air 06/03/18 07:00 94 06/02/18 18:36 10 I & 0 Intake and Output 06/03/18 07:00 Intake Total 1150 ml Output Total 660 ml Balance 490 ml Intake Oral 800 ml Blood Product IV Normal Saline Flush 350 ml Output Urine Total 650 ml Estimated Blood Loss 10 ml PHYSICAL EXAM Physical Exam GEN.: No apparent distress. HEENT: OM dry NECK: Supple. LUNGS: Clear to auscultation. HEART: RRR, S1, S2 present. ABDOMEN: Soft, nontender. Positive bowel sounds. EXTREMITIES: left arm wrapped NEUROLOGIC: Normal speech, AxO x3 , Grossly Normal SKIN: No Rash - No macias DIAGNOSIS/ASSESSMENT Assessment & Plan ESRD TTS at 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 COMMENT/RELEVANT DATA Meds Current Medications Medications (Trade) Dose Ordered Sig/Shaheen Start Time Stop Time Status Last Admin Dose Admin Acetaminophen (Tylenol) 650 mg PRN Q6HRS PRN 06/02/18 14:30 Albumin Human 200 ml @ 200 mls/hr 1X PRN PRN 06/03/18 11:45 06/03/18 17:44 Atorvastatin Calcium (Lipitor) 20 mg QHS 06/02/18 21:00 06/02/18 21:58 20 MG Cefazolin Sodium (Ancef) 1 gm STK-MED ONCE 06/02/18 17:34 06/02/18 17:35 DC Cefazolin Sodium 1 gm/Sodium Chloride 500 ml @ 500 mls/hr 1X ONCE 06/02/18 11:00 06/02/18 11:59 DC Cellulose (Surgicel Fibrillar 1x2) 1 each STK-MED ONCE 06/02/18 15:20 06/02/18 16:20 DC Dexamethasone Sodium Phosphate (Decadron) 20 mg STK-MED ONCE 06/02/18 15:32 06/02/18 15:33 DC Dextrose (Dextrose 50%-Water Syringe) 12.5 gm PRN Q15MIN PRN 06/02/18 14:30 Divalproex Sodium (Depakote) 500 mg BID 06/02/18 21:00 06/03/18 08:41 500 MG Docusate Sodium (Colace) 100 mg PRN DAILY PRN 06/02/18 14:30 Ephedrine Sulfate (ePHEDrine PF IN SALINE SYRINGE) 50 mg STK-MED ONCE 06/02/18 17:32 06/02/18 17:33 DC Famotidine (Pepcid) 20 mg QHS 06/02/18 21:00 06/02/18 21:58 20 MG Fentanyl Citrate (Fentanyl 2ml Vial) 50 mcg PRN Q2HR PRN 06/02/18 14:30 Heparin Sodium (Porcine) (Heparin Sodium) 10,000 unit STK-MED ONCE 06/02/18 15:32 06/02/18 15:33 DC Heparin Sodium (Porcine) 5000 unit/Sodium Chloride 505 ml @ 505 mls/hr 1X ONCE 06/02/18 11:00 06/02/18 11:59 DC Hydromorphone HCl (Dilaudid) 0.5 mg PRN Q10MIN PRN 06/02/18 10:30 06/03/18 10:29 UNV Info (PHARMACY MONITORING -- do not chart) 1 each PRN DAILY PRN 06/03/18 11:45 Insulin Glargine (Lantus) 20 units QHS 06/02/18 21:00 06/02/18 22:05 20 UNITS Insulin Human Lispro (HumaLOG VIAL) 10 unit 1X ONCE 06/02/18 18:45 06/02/18 18:46 DC 06/02/18 18:33 10 UNIT Insulin Human Lispro (HumaLOG) 3 units 1X ONCE 06/02/18 20:30 06/02/18 20:31 DC 06/02/18 22:04 3 UNITS Lidocaine HCl 20 ml STK-MED ONCE 06/02/18 17:45 06/02/18 18:15 DC 06/02/18 17:45 7 ML Lidocaine HCl (Xylocaine-Mpf 1% 2ml Vial) 2 ml PRN 1X PRN 06/02/18 10:30 06/02/18 20:30 DC Lidocaine/Sodium Bicarbonate (Buffered Lidocaine 1%) 3 ml 1X ONCE 06/02/18 11:45 06/02/18 11:46 DC 06/02/18 12:10 3 ML Morphine Sulfate (Morphine Sulfate) 1 mg PRN Q10MIN PRN 06/02/18 10:30 06/03/18 10:29 UNV Ondansetron HCl (Zofran) 4 mg STK-MED ONCE 06/02/18 15:32 06/02/18 15:33 DC Papaverine HCl 60 mg STK-MED ONCE 06/02/18 15:20 06/02/18 16:20 DC Phenylephrine HCl (PHENYLEPHRINE in 0.9% NACL PF) 1 mg STK-MED ONCE 06/02/18 15:32 06/02/18 15:33 DC Povidone Iodine ( Betadine Oint) 28 rachel STK-MED ONCE 06/02/18 15:20 06/02/18 16:20 DC Prochlorperazine Edisylate (Compazine) 5 mg PACU PRN PRN 06/02/18 10:30 06/02/18 20:27 DC Propofol 20 ml @ As Directed STK-MED ONCE 06/02/18 15:32 06/02/18 15:33 DC Protamine Sulfate (Protamine) 50 mg STK-MED ONCE 06/02/18 15:20 06/02/18 16:20 DC Ringer's Solution 1,000 ml @ 30 mls/hr Q24H 06/02/18 10:22 06/02/18 20:27 DC Sevoflurane (Ultane) 30 ml STK-MED ONCE 06/02/18 15:32 06/02/18 15:33 DC Sodium Chloride 1,000 ml @ 400 mls/hr Q2H30M PRN 06/03/18 11:38 06/03/18 23:37 Sodium Chloride (Normal Saline Flush) 10 ml 1X PRN PRN 06/03/18 11:45 06/04/18 11:44 Thrombin (Thrombin Topical) 5,000 unit STK-MED ONCE 06/02/18 15:21 06/02/18 16:22 DC Lab Laboratory Tests Test 06/02/18 18:24 06/02/18 20:16 06/03/18 03:45 06/03/18 07:53 Glucose (Fingerstick) 315 mg/dL (70-99) 237 mg/dL (70-99) 288 mg/dL (70-99) White Blood Count 3.3 x10^3/uL (4.0-11.0) Red Blood Count 2.33 x10^6/uL (4.30-5.70) Hemoglobin 7.0 g/dL (13.0-17.5) Hematocrit 20.1 % (39.0-53.0) Mean Corpuscular Volume 86 fL (79-100) Mean Corpuscular Hemoglobin 30 pg (25-35) Mean Corpuscular Hemoglobin Concent 35 g/dL (31-37) Red Cell Distribution Width 15.2 % (11.5-14.5) Platelet Count 46 x10^3/uL (140-400) Neutrophils (%) (Auto) 65 % (31-73) Lymphocytes (%) (Auto) 25 % (24-48) Monocytes (%) (Auto) 9 % (0-9) Eosinophils (%) (Auto) 0 % (0-3) Basophils (%) (Auto) 1 % (0-3) Neutrophils # (Auto) 2.1 x10^3uL (1.8-7.7) Lymphocytes # (Auto) 0.8 x10^3/uL (1.0-4.8) Monocytes # (Auto) 0.3 x10^3/uL (0.0-1.1) Eosinophils # (Auto) 0.0 x10^3/uL (0.0-0.7) Basophils # (Auto) 0.0 x10^3/uL (0.0-0.2) Sodium Level 143 mmol/L (136-145) Potassium Level 5.3 mmol/L (3.5-5.1) Chloride Level 106 mmol/L (98-107) Carbon Dioxide Level 26 mmol/L (21-32) Anion Gap 11 (6-14) Blood Urea Nitrogen 35 mg/dL (8-26) Creatinine 3.8 mg/dL (0.7-1.3) Estimated GFR (Cockcroft-Gault) 16.1 Glucose Level 343 mg/dL (70-99) Calcium Level 7.9 mg/dL (8.5-10.1) Test 06/03/18 11:33 Glucose (Fingerstick) 272 mg/dL (70-99) Results All relevant outside records, renal labs, imaging studies, telemetry/EKG's were reviewed. RADHA HUDSON MD Jun 03, 2018 15:22
[2018-06-03] MEDS ORDERED: ASPIRIN ENTERIC COATED 81 MG TABLET.DR. PO SCH (17:00)
[2018-06-03] MEDS ORDERED: CLOPIDOGREL BISULFATE 75 MG TABLET PO SCH (17:00)
--- NOTE | 2018-06-03 17:01 | DISCH ---
DISCHARGE DISCHARGE INFORMATION: DISCHARGE DATE: Jun 03, 2018 FINAL DIAGNOSIS Problems Medical Problems: (1) Anemia Status: Acute (2) AV fistula thrombosis Status: Acute CONDITION ON DISCHARGE: Stable CODE STATUS: Code Status: Full FPC: SNF STAY <30 DAYS: No HOSPICE: HOSPICE: No HOSPICE EVAL & TREAT: No LTAC: ADMIT TO LTAC: No POST DISCHARGE ORDERS: ACTIVITY ORDERS: Activity as tolerated DIET AFTER DISCHARGE: Renal WOUND/INCISION CARE: Change dressing CHECKS AFTER DISCHARGE: CHECKS AFTER DISCHARGE: Check blood sugar, ac/hs FOLLOW-UP: PHYSICIAN FOLLOW-UP: Dr. VERDUZCO - Vascular Surgery TREATMENT/EQUIPMENT ORDERS: ADAPTIVE EQUIPMENT NEEDED: None INFUSION EQUIPMENT NEEDED: AV shunt DISCHARGE MEDICATIONS: Home Meds Active Scripts Aspirin (ASPIRIN EC) 81 Mg Tablet.dr, 81 MG PO DAILYWBKFT for 30 Days, #30 TAB.SR Prov:MANINDER VILLA MD 02/14/18 Atorvastatin Calcium (ATORVASTATIN CALCIUM) 20 Mg Tablet, 20 MG PO QHS for 30 Days, #30 TAB Prov:MANINDER VILLA MD 02/14/18 Clopidogrel Bisulfate (CLOPIDOGREL) 75 Mg Tablet, 75 MG PO DAILYWBKFT for 30 Days, #30 TAB Prov:MANINDER VILLA MD 02/14/18 Reported Medications Lactulose (LACTULOSE) 20 Gm/30 Ml Solution, 10 GM PO BID for constipation, MISC 05/31/18 Acetaminophen (TYLENOL) 325 Mg Tablet, 975 MG PO PRN QID, TAB 05/31/18 Ranitidine Hcl (RANITIDINE HCL) 300 Mg Capsule, 300 MG PO HS, CAP 05/31/18 Calcium Carbonate (CALCIUM CARBONATE) 500 Mg/5 Ml Oral.susp, 1000 MG PO BID, MISC 05/31/18 Nph, Human Insulin Isophane (HUMULIN N) 100 Unit/1 Ml Vial, 5 UNIT SQ BID, EACH 04/16/17 Insulin Regular, Human (HUMULIN R) 100 Unit/1 Ml Vial, 0 IJ, EACH sliding scale 04/16/17 Tamsulosin Hcl (TAMSULOSIN HCL) 0.4 Mg Cap.er.24h, 0.8 MG PO DAILY, TAB patient takes 2 tablets daily of 0.4mg strength 04/10/17 Divalproex Sodium (DEPAKOTE) 500 Mg Tablet.dr, 1 TAB PO BID, #60 TAB 1 Refill 04/10/17 Discontinued Reported Medications Acetaminophen (TYLENOL) 325 Mg Tablet, 2 TAB PO QIDPRN, #60 TAB 2 Refills 04/16/17 Discontinued Scripts Furosemide (FUROSEMIDE) 40 Mg Tablet, 20 MG PO DAILY for 30 Days, #15 TAB Prov:MANINDER VILLA MD 02/14/18 JUDY ZIEGLER MD Jun 03, 2018 17:01
--- NOTE | 2018-06-03 17:02 | PDOC3 ---
Discharge Summary Visit Information Date of Admission: Jun 02, 2018 Date of Discharge: Jun 03, 2018 Admitting Diagnosis: AV fistula thrombossi Final Diagnosis Problems Medical Problems: (1) Anemia Status: Acute (2) AV fistula thrombosis Status: Acute Brief Hospital Course Allergies Allergies Coded Allergies Type Severity Reaction Last Updated Verified morphine Allergy Intermediate 06/01/18 Yes I S O L A T I O N *CONTACT* Allergy Unknown 06/01/18 Yes Vital Signs Vital Signs Date Time Temp Pulse Resp B/P (MAP) Pulse Ox O2 Delivery O2 Flow Rate FiO2 06/03/18 13:00 97.9 93 16 131/50 97.9 06/03/18 07:35 Room Air 06/03/18 07:00 94 06/02/18 18:36 10 Lab Results Laboratory Tests Test 06/02/18 09:45 06/02/18 12:47 06/02/18 14:12 06/02/18 18:24 White Blood Count 4.0 x10^3/uL (4.0-11.0) Red Blood Count 2.55 x10^6/uL (4.30-5.70) Hemoglobin 7.3 g/dL (13.0-17.5) Hematocrit 22.2 % (39.0-53.0) Mean Corpuscular Volume 87 fL (79-100) Mean Corpuscular Hemoglobin 29 pg (25-35) Mean Corpuscular Hemoglobin Concent 33 g/dL (31-37) Red Cell Distribution Width 15.0 % (11.5-14.5) Platelet Count 57 x10^3/uL (140-400) Neutrophils (%) (Auto) 62 % (31-73) Lymphocytes (%) (Auto) 26 % (24-48) Monocytes (%) (Auto) 10 % (0-9) Eosinophils (%) (Auto) 2 % (0-3) Basophils (%) (Auto) 1 % (0-3) Neutrophils # (Auto) 2.5 x10^3uL (1.8-7.7) Lymphocytes # (Auto) 1.1 x10^3/uL (1.0-4.8) Monocytes # (Auto) 0.4 x10^3/uL (0.0-1.1) Eosinophils # (Auto) 0.1 x10^3/uL (0.0-0.7) Basophils # (Auto) 0.0 x10^3/uL (0.0-0.2) Prothrombin Time 13.5 SEC (11.7-14.0) Prothromb Time International Ratio 1.1 (0.8-1.1) Activated Partial Thromboplast Time 26 SEC (24-38) Sodium Level 141 mmol/L (136-145) Potassium Level 4.3 mmol/L (3.5-5.1) Chloride Level 102 mmol/L (98-107) Carbon Dioxide Level 28 mmol/L (21-32) Anion Gap 11 (6-14) Blood Urea Nitrogen 37 mg/dL (8-26) Creatinine 3.7 mg/dL (0.7-1.3) Estimated GFR (Cockcroft-Gault) 16.6 BUN/Creatinine Ratio 10 (6-20) Glucose Level 496 mg/dL (70-99) Hemoglobin A1c 10.8 % (4.8-5.6) Calcium Level 8.4 mg/dL (8.5-10.1) Total Bilirubin 0.3 mg/dL (0.2-1.0) Aspartate Amino Transf (AST/SGOT) 9 U/L (15-37) Alanine Aminotransferase (ALT/SGPT) 9 U/L (16-63) Alkaline Phosphatase 75 U/L (46-116) Total Protein 5.9 g/dL (6.4-8.2) Albumin 2.7 g/dL (3.4-5.0) Albumin/Globulin Ratio 0.8 (1.0-1.7) Glucose (Fingerstick) 426 mg/dL (70-99) 315 mg/dL (70-99) Nasal Screen MRSA (PCR) Positive (Negative) Test 06/02/18 20:16 06/03/18 03:45 06/03/18 07:53 06/03/18 11:33 Glucose (Fingerstick) 237 mg/dL (70-99) 288 mg/dL (70-99) 272 mg/dL (70-99) White Blood Count 3.3 x10^3/uL (4.0-11.0) Red Blood Count 2.33 x10^6/uL (4.30-5.70) Hemoglobin 7.0 g/dL (13.0-17.5) Hematocrit 20.1 % (39.0-53.0) Mean Corpuscular Volume 86 fL (79-100) Mean Corpuscular Hemoglobin 30 pg (25-35) Mean Corpuscular Hemoglobin Concent 35 g/dL (31-37) Red Cell Distribution Width 15.2 % (11.5-14.5) Platelet Count 46 x10^3/uL (140-400) Neutrophils (%) (Auto) 65 % (31-73) Lymphocytes (%) (Auto) 25 % (24-48) Monocytes (%) (Auto) 9 % (0-9) Eosinophils (%) (Auto) 0 % (0-3) Basophils (%) (Auto) 1 % (0-3) Neutrophils # (Auto) 2.1 x10^3uL (1.8-7.7) Lymphocytes # (Auto) 0.8 x10^3/uL (1.0-4.8) Monocytes # (Auto) 0.3 x10^3/uL (0.0-1.1) Eosinophils # (Auto) 0.0 x10^3/uL (0.0-0.7) Basophils # (Auto) 0.0 x10^3/uL (0.0-0.2) Sodium Level 143 mmol/L (136-145) Potassium Level 5.3 mmol/L (3.5-5.1) Chloride Level 106 mmol/L (98-107) Carbon Dioxide Level 26 mmol/L (21-32) Anion Gap 11 (6-14) Blood Urea Nitrogen 35 mg/dL (8-26) Creatinine 3.8 mg/dL (0.7-1.3) Estimated GFR (Cockcroft-Gault) 16.1 Glucose Level 343 mg/dL (70-99) Calcium Level 7.9 mg/dL (8.5-10.1) Laboratory Tests Test 06/02/18 18:24 06/02/18 20:16 06/03/18 03:45 06/03/18 07:53 Glucose (Fingerstick) 315 mg/dL (70-99) 237 mg/dL (70-99) 288 mg/dL (70-99) White Blood Count 3.3 x10^3/uL (4.0-11.0) Red Blood Count 2.33 x10^6/uL (4.30-5.70) Hemoglobin 7.0 g/dL (13.0-17.5) Hematocrit 20.1 % (39.0-53.0) Mean Corpuscular Volume 86 fL (79-100) Mean Corpuscular Hemoglobin 30 pg (25-35) Mean Corpuscular Hemoglobin Concent 35 g/dL (31-37) Red Cell Distribution Width 15.2 % (11.5-14.5) Platelet Count 46 x10^3/uL (140-400) Neutrophils (%) (Auto) 65 % (31-73) Lymphocytes (%) (Auto) 25 % (24-48) Monocytes (%) (Auto) 9 % (0-9) Eosinophils (%) (Auto) 0 % (0-3) Basophils (%) (Auto) 1 % (0-3) Neutrophils # (Auto) 2.1 x10^3uL (1.8-7.7) Lymphocytes # (Auto) 0.8 x10^3/uL (1.0-4.8) Monocytes # (Auto) 0.3 x10^3/uL (0.0-1.1) Eosinophils # (Auto) 0.0 x10^3/uL (0.0-0.7) Basophils # (Auto) 0.0 x10^3/uL (0.0-0.2) Sodium Level 143 mmol/L (136-145) Potassium Level 5.3 mmol/L (3.5-5.1) Chloride Level 106 mmol/L (98-107) Carbon Dioxide Level 26 mmol/L (21-32) Anion Gap 11 (6-14) Blood Urea Nitrogen 35 mg/dL (8-26) Creatinine 3.8 mg/dL (0.7-1.3) Estimated GFR (Cockcroft-Gault) 16.1 Glucose Level 343 mg/dL (70-99) Calcium Level 7.9 mg/dL (8.5-10.1) Test 06/03/18 11:33 Glucose (Fingerstick) 272 mg/dL (70-99) Brief Hospital Course Patient is a 67 year old CM , inmate at [facility] was brought by EMS from [facility] for left arm AVF bleeding. He is a TTS dialysis. 2 days ago he had a transposition of left arm AVF. After HD access could not stop the bleeding and pt was hypotensive to 70-80s and was readmitted with dialysis needles in his arm. He is on ASA, Plavix for CAD, recent NSTEMI with stents He is c/o Pain in Lt arm. Ni N/V/D/F/C. placement of cuffed dialysis catheter in OR yesterday and symptomatically anemic transfused day of d/c back to [place]. feeling well. A/P: Blood loss anemia - transfusion today, then possibly for d/c ESRD - AVF bleeding s/p cuffed dialysis catheter and tunneled dialysis catheter. CAD - ASA and plavix for stents Diet - Renal PPX - Heparin FULL CODE Discharge Information Condition at Discharge: Improved Follow Up: Weeks Disposition/Orders: D/C to Another Facility Scheduled Acetaminophen (Tylenol) 325 Mg Tablet, 975 MG PO PRN QID, (Reported) Entered as Reported by: SALVATORE VILLANUEVA on 05/31/18 1135 Last Action: HELD on 06/02/181426 by MANINDER VILLA MD Aspirin (Aspirin Ec) 81 Mg Tablet.dr, 81 MG PO DAILYWBKFT for 30 Days, #30 Prescribed by: MANINDER VILLA MD on 02/14/18 105 Last Action: HELD on 06/02/181426 by MANINDER VILLA MD Atorvastatin Calcium (Atorvastatin Calcium) 20 Mg Tablet, 20 MG PO QHS for 30 Days, #30 Prescribed by: MANINDER VILLA MD on 02/14/18 1050 Last Action: Continued on 06/02/181426 by MANINDER VILLA MD Calcium Carbonate (Calcium Carbonate) 500 Mg/5 Ml Oral.susp, 1,000 MG PO BID, ( Reported) Entered as Reported by: SALVATORE VILLANUEVA on 05/31/18 1132 Last Action: HELD on 06/02/181426 by MANINDER VILLA MD Clopidogrel Bisulfate (Clopidogrel) 75 Mg Tablet, 75 MG PO DAILYWBKFT for 30 Days, #30 Prescribed by: MANINDER VILLA MD on 02/14/18 1050 Last Action: HELD on 06/02/181426 by MANINDER VILLA MD Divalproex Sodium (Depakote) 500 Mg Tablet.dr, 1 TAB PO BID, #60 Ref 1 (Reported ) Entered as Reported by: Buck Poole on 04/10/17 0400 Last Action: Converted on 06/02/181426 by MANINDER VILLA MD Lactulose (Lactulose) 20 Gm/30 Ml Solution, 10 GM PO BID for constipation, ( Reported) Entered as Reported by: SALVATORE VILLANUEVA on 05/31/18 1208 Last Action: HELD on 06/02/181426 by MANINDER VILLA MD Nph, Human Insulin Isophane (Humulin N) 100 Unit/1 Ml Vial, 5 UNIT SQ BID, ( Reported) Entered as Reported by: LIZBETH VARGAS on 04/16/17 1231 Last Action: HELD on 06/02/181426 by MANINDER VILLA MD Ranitidine Hcl (Ranitidine Hcl) 300 Mg Capsule, 300 MG PO HS, (Reported) Entered as Reported by: SALVATORE VILLANUEVA on 05/31/18 1134 Last Action: Converted on 06/02/181426 by MANINDER VILLA MD Tamsulosin Hcl (Tamsulosin Hcl) 0.4 Mg Cap.er.24h, 0.8 MG PO DAILY, (Reported) patient takes 2 tablets daily of 0.4mg strength Entered as Reported by: Buck Poole on 04/10/170 Last Action: HELD on 06/02/181426 by MANINDER VILLA MD Miscellaneous Medications Insulin Regular, Human (Humulin R) 100 Unit/1 Ml Vial, 0 IJ, (Reported) sliding scale Entered as Reported by: LIZBETH VARGAS on 04/16/17 1231 Last Action: HELD on 06/02/181426 by MANINDER VILLA MD Discontinued Medications Acetaminophen (Tylenol) 325 Mg Tablet, 2 TAB PO QIDPRN, #60 Ref 2 (Reported) Entered as Reported by: LIZBETH VARGAS on 04/16/17 1231 Furosemide (Furosemide) 40 Mg Tablet, 20 MG PO DAILY for 30 Days, #15 Prescribed by: MANINDER VILLA MD on 02/14/18 1050 Last Action: HELD on 06/02/181426 by MD KARLIE ROBB CHRISTOPHER S MD Jun 03, 2018 17:02
[2018-06-03 17:16] LABS: HEMATOCRIT 22.2 % (39.0-53.0); HEMOGLOBIN 7.5 g/dL (13.0-17.5)
[2018-06-04] MEDS ORDERED: FAMOTIDINE 20 MG TABLET. PO SCH (21:00)
== END 2018-06-03 18:45 | disposition home or self-care (01) | DRG 314 ==
LOC: ER 09:04 → EEVIPCON 09:06 → 1 WEST ICU 10:25 → 4 NORTH 19:10
PROVIDERS: ADMIT Internal Medicine; ATTEND Internal Medicine
PROC: 0JH63XZ Insertion of Tunneled Vascular Access Device into Chest Subcutaneous Tissue and Fascia, Percutaneous Approach (ICD-10-PCS; 2018-06-02)
PROC: 02H633Z Insertion of Infusion Device into Right Atrium, Percutaneous Approach (ICD-10-PCS; 2018-06-02)
PROC: B5131ZA Fluoroscopy of Right Jugular Veins using Low Osmolar Contrast, Guidance (ICD-10-PCS; 2018-06-02)
PROC: B543ZZA Ultrasonography of Right Jugular Veins, Guidance (ICD-10-PCS; 2018-06-02)
PROC: 30233N1 Transfusion of Nonautologous Red Blood Cells into Peripheral Vein, Percutaneous Approach (ICD-10-PCS; principal; 2018-06-02 15:30)
DX: T82.868A Thrombosis due to vascular prosthetic devices, implants and grafts, initial encounter (principal); N18.6 End stage renal disease; I50.20 Unspecified systolic (congestive) heart failure; I13.2 Hypertensive heart and chronic kidney disease with heart failure and with stage 5 chronic kidney disease, or end stage renal disease; D62 Acute posthemorrhagic anemia; T82.838A Hemorrhage due to vascular prosthetic devices, implants and grafts, initial encounter; Y83.2 Surgical operation with anastomosis, bypass or graft as the cause of abnormal reaction of the patient, or of later complication, without mention of misadventure at the time of the procedure; Y84.1 Kidney dialysis as the cause of abnormal reaction of the patient, or of later complication, without mention of misadventure at the time of the procedure; I25.10 Atherosclerotic heart disease of native coronary artery without angina pectoris; G40.909 Epilepsy, unspecified, not intractable, without status epilepticus; E11.65 Type 2 diabetes mellitus with hyperglycemia; D69.6 Thrombocytopenia, unspecified; D63.1 Anemia in chronic kidney disease; E11.22 Type 2 diabetes mellitus with diabetic chronic kidney disease; I25.2 Old myocardial infarction; Z79.4 Long term (current) use of insulin; Z79.899 Other long term (current) drug therapy; Z79.02 Long term (current) use of antithrombotics/antiplatelets; Z79.82 Long term (current) use of aspirin; Z82.49 Family history of ischemic heart disease and other diseases of the circulatory system; Z99.3 Dependence on wheelchair; Z99.2 Dependence on renal dialysis
CPT/HCPCS: 36415; 36556; 71045; 76937; 80048; 80053; 82962; 83036; 85014; 85018; 85025; 85610; 85730; 86850; 86900; 86901; 86920; 87641; 96372; C1750; C1769; C1892; J0690; J1100; J1644; J1815; J2370; J2405; J2440; J2704; P9016; 99285-25

== ENCOUNTER 2018-10-10 10:34 | Inpatient (IN) | payer MEDICAID, OTHER ==
[~2018-10-10] VITALS: Ht 182.9 cm; Wt 90.9 kg
[2018-10-10] VITALS (9 sets, daily range): BP systolic 90–126; BP diastolic 41–51
[2018-10-10 11:32] LABS: CALCIUM 8.2 mg/dL (8.5-10.1); CREATININE 2.9 mg/dL (0.7-1.3); GFR 21.9; POTASSIUM 3.4 mmol/L (3.5-5.1)
[2018-10-10 11:34] LABS: BASO % 1 % (0-3); EOS # 0.2 x10^3/uL (0.0-0.7); EOS % 7 % (0-3); HEMATOCRIT 21.6 % (39.0-53.0); LYMPH # 0.6 x10^3/uL (1.0-4.8); LYMPH % 17 % (24-48); MEAN CORPUSCULAR HEMOGLOBIN 25 pg (25-35); MEAN CORPUSCULAR HGB CONC 32 g/dL (31-37); MEAN CORPUSCULAR VOLUME 78 fL (79-100); MONO # 0.3 x10^3/uL (0.0-1.1); MONO % 7 % (0-9); NEUT # 2.5 x10^3uL (1.8-7.7); NEUT % 68 % (31-73); PLATELET COUNT 117 x10^3/uL (140-400); RED BLOOD COUNT 2.78 x10^6/uL (4.30-5.70); RED CELL DISTRIBUTION WIDTH 17.7 % (11.5-14.5); WHITE BLOOD COUNT 3.7 x10^3/uL (4.0-11.0)
[2018-10-10 11:37] LABS: ALBUMIN 2.7 g/dL (3.4-5.0); ALBUMIN/GLOBULIN RATIO 0.8 (1.0-1.7); HEMOGLOBIN 6.8 g/dL (13.0-17.5); TOTAL BILIRUBIN 0.6 mg/dL (0.2-1.0); TOTAL PROTEIN 6.2 g/dL (6.4-8.2)
[2018-10-10 11:47] LABS: PROTHROMBIN TIME PATIENT 14.9 SEC (11.7-14.0)
--- NOTE | 2018-10-10 12:14 | PHYS DOC ---
Past Medical History Past Medical History: Diabetes-Type II, Hypertension, Seizure, Other Additional Past Medical Histor: chronic renal insuficency, epilepsy Past Surgical History: Other Additional Past Surgical Histo: dialysis graft left arm/REVISION 06/01/2018 @ [facility] Alcohol Use: None Drug Use: None Adult General Chief Complaint Chief Complaint: DIALYSIS PROBLEM HPI HPI Patient is a 68 year old male was brought here by EMS from the dialysis center for evaluation of bleeding from his dialysis fistula. Patient had an AV fistula on the left arm, per report it was revised recently about 2 weeks ago. Today was the first time that they used that AV fistula again. 3 hours into the dialysis session, patient started bleeding profusely from the puncture wound at the fistula site. No report patient lost a lot of blood on the floor, the nurse there could not stop the bleeding so EMS were called to take him here for evaluation. They put heavy gauze onto the bleeding area before they transported him here. By time he got here, the bleeding was stopped. Patient otherwise felt fine. Review of Systems Review of Systems Constitutional: Denies fever or chills [] Eyes: Denies change in visual acuity, redness, or eye pain [] HENT: Denies nasal congestion or sore throat [] Respiratory: Denies cough or shortness of breath [] Cardiovascular: No additional information not addressed in HPI [] GI: Denies abdominal pain, nausea, vomiting, bloody stools or diarrhea [] : Denies dysuria or hematuria [] Musculoskeletal: Denies back pain or joint pain [] Integument: Denies rash or skin lesions [] Neurologic: Denies headache, focal weakness or sensory changes [] Endocrine: Denies polyuria or polydipsia [] All other systems were reviewed and found to be within normal limits, except as documented in this note. Current Medications Current Medications Current Medications Medications (Trade) Dose Ordered Sig/Shaheen Start Time Stop Time Status Last Admin Dose Admin Ondansetron HCl (Zofran) 4 mg PRN Q8HRS PRN 10/10/18 12:15 10/11/18 12:14 Allergies Allergies Allergies Coded Allergies Type Severity Reaction Last Updated Verified morphine Allergy Intermediate 06/01/18 Yes I S O L A T I O N *CONTACT* Allergy Unknown 06/01/18 Yes Physical Exam Physical Exam Constitutional: Well developed, well nourished, no acute distress, non-toxic appearance. [] HENT: Normocephalic, atraumatic, bilateral external ears normal, oropharynx moist, no oral exudates, nose normal. [] Eyes: PERRLA, EOMI, conjunctiva PALE, no discharge. [] Neck: Normal range of motion, no tenderness, supple, no stridor. [] Cardiovascular:Heart rate regular rhythm, no murmur [] Lungs & Thorax: Bilateral breath sounds clear to auscultation [] Abdomen: Bowel sounds normal, soft, no tenderness, no masses, no pulsatile masses. [] Skin: Warm, dry, no erythema, no rash. [] Back: No tenderness, no CVA tenderness. [] Extremities: THERE IS AN AV FISTULA ON LEFT ARM, THERE IS NO ACTIVE BLEEDING, THERE IS A STRONG THRILL PRESENT. NO TENDERNESS TO PALPATION. AV FISTULA APPEARED PATENT. THERE IS STRONG LEFT DISTAL RADIAL PULSE. Neurologic: Alert and oriented X 3, normal motor function, normal sensory function, no focal deficits noted. [] Psychologic: Affect normal, judgement normal, mood normal. [] Current Patient Data Vital Signs Vital Signs Date Time Temp Pulse Resp B/P (MAP) Pulse Ox O2 Delivery O2 Flow Rate FiO2 10/10/18 10:49 98.0 87 17 125/58 (80) 100 Nasal Cannula 2.0 98.0 Lab Values Laboratory Tests Test 10/10/18 11:06 White Blood Count 3.7 x10^3/uL (4.0-11.0) L Red Blood Count 2.78 x10^6/uL (4.30-5.70) L Hemoglobin 6.8 g/dL (13.0-17.5) *L Hematocrit 21.6 % (39.0-53.0) L Mean Corpuscular Volume 78 fL (79-100) L Mean Corpuscular Hemoglobin 25 pg (25-35) Mean Corpuscular Hemoglobin Concent 32 g/dL (31-37) Red Cell Distribution Width 17.7 % (11.5-14.5) H Platelet Count 117 x10^3/uL (140-400) L Neutrophils (%) (Auto) 68 % (31-73) Lymphocytes (%) (Auto) 17 % (24-48) L Monocytes (%) (Auto) 7 % (0-9) Eosinophils (%) (Auto) 7 % (0-3) H Basophils (%) (Auto) 1 % (0-3) Neutrophils # (Auto) 2.5 x10^3uL (1.8-7.7) Lymphocytes # (Auto) 0.6 x10^3/uL (1.0-4.8) L Monocytes # (Auto) 0.3 x10^3/uL (0.0-1.1) Eosinophils # (Auto) 0.2 x10^3/uL (0.0-0.7) Basophils # (Auto) 0.0 x10^3/uL (0.0-0.2) Prothrombin Time 14.9 SEC (11.7-14.0) H Prothrombin Time INR 1.2 (0.8-1.1) H PTT 32 SEC (24-38) Sodium Level 143 mmol/L (136-145) Potassium Level 3.4 mmol/L (3.5-5.1) L Chloride Level 103 mmol/L (98-107) Carbon Dioxide Level 32 mmol/L (21-32) Anion Gap 8 (6-14) Blood Urea Nitrogen 20 mg/dL (8-26) Creatinine 2.9 mg/dL (0.7-1.3) H Estimated GFR (Cockcroft-Gault) 21.9 BUN/Creatinine Ratio 7 (6-20) Glucose Level 88 mg/dL (70-99) Calcium Level 8.2 mg/dL (8.5-10.1) L Total Bilirubin 0.6 mg/dL (0.2-1.0) Aspartate Amino Transferase (AST) 14 U/L (15-37) L Alanine Aminotransferase (ALT) 10 U/L (16-63) L Alkaline Phosphatase 94 U/L (46-116) Total Protein 6.2 g/dL (6.4-8.2) L Albumin 2.7 g/dL (3.4-5.0) L Albumin/Globulin Ratio 0.8 (1.0-1.7) L Laboratory Tests 10/10/18 11:06 Laboratory Tests 10/10/18 11:06 EKG EKG [] Radiology/Procedures Radiology/Procedures [] Course & Med Decision Making Course & Med Decision Making Pertinent Labs and Imaging studies reviewed. (See chart for details) Patient was found to be anemic due to blood loss from AV FISTULA BLEEDING. The bleeding was stopped. Patient will be admitted, transfused blood, and recheck hemoglobin again later. Dragon Disclaimer Dragon Disclaimer This electronic medical record was generated, in whole or in part, using a voice recognition dictation system. Departure Departure Impression: Primary Impression: Hemorrhage of arteriovenous fistula Additional Impression: Anemia Disposition: ADMITTED INPATIENT Admitting Physician: Juanjo Mckeon Condition: STABLE Referrals: NO PCP (PCP) Problem Qualifiers BLADE MAGAÑA DO Oct 10, 2018 12:14
[2018-10-10] MEDS ORDERED: ONDANSETRON PF 4 MG/2 ML VIAL. IV PRN (12:15)
--- NOTE | 2018-10-10 12:35 | PDOC1 ---
History and Physical Date of Admission Date of Admission DATE: 10/10/18 TIME: 12:35 Identification/Chief Complaint Chief Complaint ssen in er 68 year old male was brought here by EMS from the dialysis center for evaluation of bleeding from his dialysis fistula at [facility] . AV fistula on the left arm, was revised recently about 2 weeks ago.was the first time that they used that AV fistula again. 3 hours into the dialysis session, patient started bleeding profusely from the puncture wound at the fistula site. patient lost a lot of blood hgb 6.8 in ER per my review of records DATE OF SURGERY: 06/02/2018 PREOPERATIVE DIAGNOSIS: End-stage renal disease, status post transposition of a left brachiobasilic arteriovenous fistula. OPERATION PERFORMED: Placement of a cuffed permanent dialysis catheter, right internal jugular vein. SURGEON: Rocky Eldridge M.D. Past Medical History Past Medical History Past Medical History Past Medical History Past Medical History: Diabetes-Type II, Hypertension, Seizure, Other Additional Past Medical Histor: chronic renal insuficency, epilepsy Past Surgical History: Other Additional Past Surgical Histo: dialysis graft left arm/REVISION 06/01/2018 @ [facility] Alcohol Use: None Drug Use: None FAMILY HX HTN Cardiovascular: CAD, HTN, Hyperlipidemia Heme/Onc: Anemia NOS Renal/: Chronic renal failure, Benign prostatic enlarg. Endocrine: Diabetes, Hyperparathyroidism Past Surgical History Past Surgical History: No pertinent history Family History Family History: Coronary Artery Disease, Hypertension Social History Smoke: No ALCOHOL: none Drugs: None Current Problem List Problem List Problems Medical Problems: (1) Anemia Status: Acute Current Medications Current Medications Current Medications Ondansetron HCl (Zofran) 4 mg PRN Q8HRS PRN IV NAUSEA/VOMITING; Start 10/10/18 at 12:15; Stop 10/11/18 at 12:14 Active Scripts Active Aspirin Ec (Aspirin) 81 Mg Tablet.dr 81 Mg PO DAILYWBKFT 30 Days Atorvastatin Calcium 20 Mg Tablet 20 Mg PO QHS 30 Days Clopidogrel (Clopidogrel Bisulfate) 75 Mg Tablet 75 Mg PO DAILYWBKFT 30 Days Reported Lactulose 20 Gm/30 Ml Solution 10 Gm PO BID Tylenol (Acetaminophen) 325 Mg Tablet 975 Mg PO PRN QID Ranitidine Hcl 300 Mg Capsule 300 Mg PO HS Calcium Carbonate 500 Mg/5 Ml Oral.susp 1,000 Mg PO BID Humulin N (Nph, Human Insulin Isophane) 100 Unit/1 Ml Vial 5 Unit SQ BID Humulin R (Insulin Regular, Human) 100 Unit/1 Ml Vial 0 IJ sliding scale Tamsulosin Hcl 0.4 Mg Cap.er.24h 0.8 Mg PO DAILY patient takes 2 tablets daily of 0.4mg strength Depakote (Divalproex Sodium) 500 Mg Tablet.dr 1 Tab PO BID Allergies Allergies: Coded Allergies: morphine (Verified Allergy, Intermediate, 06/01/18) I S O L A T I O N *CONTACT* (Verified Allergy, Unknown, 06/01/18) mrsa ROS Review of System Review of Systems Review of Systems Constitutional: Denies fever or chills [] Eyes: Denies change in visual acuity, redness, or eye pain [] HENT: Denies nasal congestion or sore throat [] Respiratory: Denies cough or shortness of breath [] Cardiovascular: No additional information not addressed in HPI [] GI: Denies abdominal pain, nausea, vomiting, bloody stools or diarrhea [] : Denies dysuria or hematuria [] Musculoskeletal: Denies back pain or joint pain [] Integument: Denies rash or skin lesions [] Neurologic: Denies headache, focal weakness or sensory changes [] Endocrine: Denies polyuria or polydipsia [] 14 PT systems were reviewed and found to be within normal limits, except as documented PSYCHOLOGICAL ROS: YES: Depression Respiratory: No: Cough, Hemoptysis, Orthopnea, Pleuritic Pain, Shortness of breath, SOB with excertion, Sputum Changes, Stridor, Tachypnea, Wheezing, Other Musculoskeletal: Yes Gait Disturbance Skin: Yes Rash, Yes Skin Lesion Changes Physical Exam Physical Exam Physical Exam Physical Exam Constitutional: Well developed, well nourished, no acute distress, non-toxic appearance. [] HENT: Normocephalic, atraumatic, bilateral external ears normal, oropharynx moist, no oral exudates, nose normal. [] Eyes: PERRLA, EOMI, conjunctiva PALE, no discharge. [] Neck: Normal range of motion, no tenderness, supple, no stridor. [] Cardiovascular:Heart rate regular rhythm, no murmur [] Lungs & Thorax: Bilateral breath sounds clear to auscultation [] Abdomen: Bowel sounds normal, soft, no tenderness, no masses, no pulsatile masses. [] Skin: Warm, dry, no erythema, CHRONIC Venous insuff rash both lower legs rash. [ ] Back: No tenderness, no CVA tenderness. [] Extremities: THERE IS AN AV FISTULA ON LEFT ARM, THERE IS NO ACTIVE BLEEDING, STRONG LEFT DISTAL RADIAL PULSE. Neurologic: Alert and oriented X 3, normal motor function, normal sensory function, no focal deficits noted. [] Psychologic: Affect normal, judgement normal, mood normal. [] General: Alert, Oriented X3, Cooperative, mild distress HEENT: Atraumatic, PERRLA, EOMI, Mucous membr. moist/pink Lungs: Normal air movement Breasts: Not examined Abdomen: Normal bowel sounds, Soft Rectal Exam: not examined Skin: Other (chronic venous insuff chgs both lower legs) Neuro: Strength at 5/5 X4 ext, Cranial nerves 3-12 NL Psych/Mental Status: Mental status NL, Mood NL Vitals Vitals Vital Signs Date Time Temp Pulse Resp B/P (MAP) Pulse Ox O2 Delivery O2 Flow Rate FiO2 10/10/18 10:49 98.0 87 17 125/58 (80) 100 Nasal Cannula 2.0 98.0 Labs Labs Laboratory Tests Test 10/10/18 11:06 White Blood Count 3.7 x10^3/uL (4.0-11.0) Red Blood Count 2.78 x10^6/uL (4.30-5.70) Hemoglobin 6.8 g/dL (13.0-17.5) Hematocrit 21.6 % (39.0-53.0) Mean Corpuscular Volume 78 fL (79-100) Mean Corpuscular Hemoglobin 25 pg (25-35) Mean Corpuscular Hemoglobin Concent 32 g/dL (31-37) Red Cell Distribution Width 17.7 % (11.5-14.5) Platelet Count 117 x10^3/uL (140-400) Neutrophils (%) (Auto) 68 % (31-73) Lymphocytes (%) (Auto) 17 % (24-48) Monocytes (%) (Auto) 7 % (0-9) Eosinophils (%) (Auto) 7 % (0-3) Basophils (%) (Auto) 1 % (0-3) Neutrophils # (Auto) 2.5 x10^3uL (1.8-7.7) Lymphocytes # (Auto) 0.6 x10^3/uL (1.0-4.8) Monocytes # (Auto) 0.3 x10^3/uL (0.0-1.1) Eosinophils # (Auto) 0.2 x10^3/uL (0.0-0.7) Basophils # (Auto) 0.0 x10^3/uL (0.0-0.2) Prothrombin Time 14.9 SEC (11.7-14.0) Prothromb Time International Ratio 1.2 (0.8-1.1) Activated Partial Thromboplast Time 32 SEC (24-38) Sodium Level 143 mmol/L (136-145) Potassium Level 3.4 mmol/L (3.5-5.1) Chloride Level 103 mmol/L (98-107) Carbon Dioxide Level 32 mmol/L (21-32) Anion Gap 8 (6-14) Blood Urea Nitrogen 20 mg/dL (8-26) Creatinine 2.9 mg/dL (0.7-1.3) Estimated GFR (Cockcroft-Gault) 21.9 BUN/Creatinine Ratio 7 (6-20) Glucose Level 88 mg/dL (70-99) Calcium Level 8.2 mg/dL (8.5-10.1) Total Bilirubin 0.6 mg/dL (0.2-1.0) Aspartate Amino Transf (AST/SGOT) 14 U/L (15-37) Alanine Aminotransferase (ALT/SGPT) 10 U/L (16-63) Alkaline Phosphatase 94 U/L (46-116) Total Protein 6.2 g/dL (6.4-8.2) Albumin 2.7 g/dL (3.4-5.0) Albumin/Globulin Ratio 0.8 (1.0-1.7) Laboratory Tests Test 10/10/18 11:06 White Blood Count 3.7 x10^3/uL (4.0-11.0) Red Blood Count 2.78 x10^6/uL (4.30-5.70) Hemoglobin 6.8 g/dL (13.0-17.5) Hematocrit 21.6 % (39.0-53.0) Mean Corpuscular Volume 78 fL (79-100) Mean Corpuscular Hemoglobin 25 pg (25-35) Mean Corpuscular Hemoglobin Concent 32 g/dL (31-37) Red Cell Distribution Width 17.7 % (11.5-14.5) Platelet Count 117 x10^3/uL (140-400) Neutrophils (%) (Auto) 68 % (31-73) Lymphocytes (%) (Auto) 17 % (24-48) Monocytes (%) (Auto) 7 % (0-9) Eosinophils (%) (Auto) 7 % (0-3) Basophils (%) (Auto) 1 % (0-3) Neutrophils # (Auto) 2.5 x10^3uL (1.8-7.7) Lymphocytes # (Auto) 0.6 x10^3/uL (1.0-4.8) Monocytes # (Auto) 0.3 x10^3/uL (0.0-1.1) Eosinophils # (Auto) 0.2 x10^3/uL (0.0-0.7) Basophils # (Auto) 0.0 x10^3/uL (0.0-0.2) Prothrombin Time 14.9 SEC (11.7-14.0) Prothromb Time International Ratio 1.2 (0.8-1.1) Activated Partial Thromboplast Time 32 SEC (24-38) Sodium Level 143 mmol/L (136-145) Potassium Level 3.4 mmol/L (3.5-5.1) Chloride Level 103 mmol/L (98-107) Carbon Dioxide Level 32 mmol/L (21-32) Anion Gap 8 (6-14) Blood Urea Nitrogen 20 mg/dL (8-26) Creatinine 2.9 mg/dL (0.7-1.3) Estimated GFR (Cockcroft-Gault) 21.9 BUN/Creatinine Ratio 7 (6-20) Glucose Level 88 mg/dL (70-99) Calcium Level 8.2 mg/dL (8.5-10.1) Total Bilirubin 0.6 mg/dL (0.2-1.0) Aspartate Amino Transf (AST/SGOT) 14 U/L (15-37) Alanine Aminotransferase (ALT/SGPT) 10 U/L (16-63) Alkaline Phosphatase 94 U/L (46-116) Total Protein 6.2 g/dL (6.4-8.2) Albumin 2.7 g/dL (3.4-5.0) Albumin/Globulin Ratio 0.8 (1.0-1.7) VTE Prophylaxis Ordered VTE Prophylaxis Devices: Contraindicated VTE Pharmacological Prophylaxi: No Assessment/Plan Assessment/Plan impression 1. AV Fistula malfunction, RECENT revision 2, ESRD ON DIALYSIS 3. HTN 4. HYPERLIPIDEMIA 5. chronic venous insuff changes both lower legs PLAN VASCULAR SURG CONSULT Nephrology consult transfuse 2 units PRBC,S NOW wound care nurse consult sq heparin contraindicated as well as scd's LUANN WAHL MD Oct 10, 2018 12:35
[2018-10-10] MEDS ORDERED: ATOR40TA59 PO (14:36)
[2018-10-10] MEDS ORDERED: MAGN400O7 PO (14:36)
[2018-10-10] MEDS ORDERED: aranesp (14:36)
[2018-10-10] MEDS ORDERED: AMLO10TA8 PO (14:36)
[2018-10-10] MEDS ORDERED: ONDA4TAB7 PO (14:36)
[2018-10-10] MEDS ORDERED: FOLI0.8T3 PO (14:36)
[2018-10-10] MEDS ORDERED: GLIP5TAB10 PO (14:36)
[2018-10-10] MEDS ORDERED: TRAM50TA PO (14:36)
[2018-10-10] MEDS ORDERED: ALBUTEROL SULFATE 2.5 MG/3 ML NEBU. NEB PRN (14:45)
[2018-10-10] MEDS ORDERED: DOCUSATE SODIUM 100 MG CAPSULE. PO PRN (14:45)
[2018-10-10] MEDS ORDERED: MAGNESIUM HYDROXIDE 2,400 MG/30 ML ORAL.SUSP. PO PRN (14:45)
[2018-10-10] MEDS ORDERED: ACETAMINOPHEN 650 MG/20.3 ML SOLUTION. GT PRN (14:45)
[2018-10-10] MEDS ORDERED: cloNIDine HCL 0.1 MG TABLET PO PRN (14:45)
[2018-10-10] MEDS ORDERED: traMADol 50 MG TABLET PO PRN (14:45)
[2018-10-10] MEDS ORDERED: LACTULOSE 20 GM/30 ML SOLUTION. PO PRN (14:45)
[2018-10-10] MEDS ORDERED: ONDANSETRON ODT 4 MG TAB.RAPDIS. PO PRN (15:00)
[2018-10-10] MEDS ORDERED: amLODIPine BESYLATE 10 MG TABLET PO SCH (15:00)
[2018-10-10] MEDS: CALCIUM CARBONATE 500 MG TAB.CHEW PO SCH ×2 (15:11→21:00)
--- NOTE | 2018-10-10 15:29 | PDOC ---
Provider Note Provider Note (please see full dictation) Pt had bleeding from the left arm dialysis when one of the access needles came out at the end of dialysis. There is a good thrill in the left arm fistula. There are no areas of skin breakdown. May resume use of the left arm fistula. JULIO CLEMENTE MD Oct 10, 2018 15:29
--- NOTE | 2018-10-10 15:33 | NUR ---
Patient received to room 521 per karyn at 1345 from ER, patient move to bed with Z-slider. Patient accompanied by 2 guards and has bilat. ankle shackles. Patient alert and oriented times four. Patient with oxygen at 2 liters per NC. Colban wrap over MICHELLE dialysis fistula, dressing D&I, positive for bruit and thrill. Patient has no IV access. Nursing cd manufacturing supervisor Carmen MACIEL notified and inserted #20 insyter right forearm. Medication reconciliation completed and Dr. Prabhakar notified. Patient received patient information booklet. Phone was removed from room prior to patient arrrival. Patient nare swab for MRSA per protocol. Patient verb. understanding isolation and fall protocol. Fall contract witnessed. Side rails up times two, call light at hand. Two guards remain in room. See assessment and admission. Dr. King notified of consult and patient states had dialysis completed up to last 16 minutes when MICHELLE fistula "blew". See orders. Patient verb. understanding transfusion and received a Patient's Guide to Transfusion and wished to proceed. He verb. understanding S&S to report for transfusion reaction. Consent witnessed. See tranfusion record. Blood t ransfusion initiated right forearm #20 insyte at 50 cc per hour per protocol. Continue cares and monitor.
--- NOTE | 2018-10-10 15:47 | NUR ---
See transfusion record, rate increased to 125 cc per hour, continue to monitor. Patient denies S&S reaction.
[2018-10-10] MEDS: ACETAMINOPHEN 325 MG TABLET. PO PRN ×2 (16:15→23:18)
[2018-10-10] MEDS: DIVALPROEX DELAYED RELEASE 500 MG TABLET.DR. PO SCH (17:17)
--- NOTE | 2018-10-10 18:03 | NUR ---
Transfusion complete, see transfusion record, no reaction. H&H ordered post-transfusion per order. Patient verb. understanding POC.
--- NOTE | 2018-10-10 18:50 | NUR ---
One hour post-transfusion, VSS. See transfusion record.
[2018-10-10 18:51] LABS: HEMATOCRIT 21.8 % (39.0-53.0)
[2018-10-10 18:55] LABS: HEMOGLOBIN 6.9 g/dL (13.0-17.5)
--- NOTE | 2018-10-10 18:57 | NUR ---
HGB. 6.9 30 minutes after one unit packed red blood cells. Dr. Garcia paged custom decorating consultant for critical lab result.
--- NOTE | 2018-10-10 19:02 | NUR ---
Dr. Brown received critical H/H 6.9/21.8 30 minutes after completion transfusion. No further orders, has CBC due at 2100 and she will wait for those results.
[2018-10-10] MEDS ORDERED: FAMOTIDINE 20 MG TABLET. PO SCH (21:00)
[2018-10-10] MEDS ORDERED: DARBEPOETIN ALFA 100 MCG/0.5 ML DISP.SYRIN. SQ SCH (21:00)
[2018-10-10] MEDS ORDERED: ATORVASTATIN CALCIUM 40 MG TABLET. PO SCH (21:00)
[2018-10-10 21:01] LABS: BASO % 1 % (0-3); EOS # 0.2 x10^3/uL (0.0-0.7); EOS % 5 % (0-3); HEMATOCRIT 21.4 % (39.0-53.0); LYMPH # 0.8 x10^3/uL (1.0-4.8); LYMPH % 21 % (24-48); MEAN CORPUSCULAR HEMOGLOBIN 25 pg (25-35); MEAN CORPUSCULAR HGB CONC 31 g/dL (31-37); MEAN CORPUSCULAR VOLUME 81 fL (79-100); MONO # 0.4 x10^3/uL (0.0-1.1); MONO % 11 % (0-9); NEUT # 2.2 x10^3uL (1.8-7.7); NEUT % 61 % (31-73); PLATELET COUNT 89 x10^3/uL (140-400); RED BLOOD COUNT 2.66 x10^6/uL (4.30-5.70); RED CELL DISTRIBUTION WIDTH 17.6 % (11.5-14.5); WHITE BLOOD COUNT 3.6 x10^3/uL (4.0-11.0)
[2018-10-10 21:09] LABS: HEMOGLOBIN 6.7 g/dL (13.0-17.5)
--- NOTE | 2018-10-10 22:35 | NUR ---
Patient refused all medications and blood transfusions confirmed by charge nurse and two on shift gards, he said he would like to just be transfer back to the facility in the morning.
--- NOTE | 2018-10-10 23:12 | NUR ---
Paged Dr. Thuy Garcia and Dr. Brian Garcia return call he said he was covering just for this night, made sure that Doctor was aware of Patient refusal of night medications and blood transfusion, Doctor said to make sure to just document it and keep the HH for in the morning and will go from there.
[2018-10-11 03:01] VITALS: BP 112/48
[2018-10-11] MEDS: DIVALPROEX DELAYED RELEASE 500 MG TABLET.DR. PO SCH (05:25)
--- NOTE | 2018-10-11 05:31 | CONS ---
DATE OF CONSULTATION: 10/10/2018 CHIEF COMPLAINT: Bleeding from left arm fistula. HISTORY OF PRESENT ILLNESS: The patient is a 68-year-old male with chronic renal failure on hemodialysi, who was dialyzing through a left arm arteriovenous fistula. He noted one of the needles came out at the end of dialysis losing significant amount of blood. He was transferred for anemia of acute blood loss. He had a left arm fistula transposition in May. He has been dialyzing through a tunneled dialysis catheter since that time. He is just to use his fistula a few times for dialysis. This was the first time it had been used recently. He denies any hand pain or numbness. PAST MEDICAL HISTORY: 1. Chronic renal failure, on hemodialysis. 2. Diabetes. 3. Hypertension. 4. History of seizure disorder. 5. Venous insufficiency. PAST SURGICAL HISTORY: 1. Left arm arteriovenous fistula construction with eventual transposition of the basilic vein done on 06/[address] Eldridge. 2. Tunneled dialysis catheter placement. CURRENT MEDICATIONS: Please see detailed medication administration record for details. He is on aspirin, atorvastatin, clopidogrel, lactulose, Tylenol, ranitidine, calcium, insulin, Flomax, and Depakote. ALLERGIES: ADVERSE REACTION TO MORPHINE. FAMILY HISTORY: Noncontributory. REVIEW OF SYSTEMS: No recent fevers, chills, chest pain or shortness of breath. He has chronic lower extremity ulcers that are getting local wound care. No nausea, vomiting, diarrhea, constipation, hematochezia, melena or other GI symptoms. No other bleeding from his colon or other sources. PHYSICAL EXAMINATION: GENERAL: This is a well-developed male, in no acute distress. VITAL SIGNS: Temperature 98.0, pulse 87, blood pressure 125/58 and respirations 16. NECK: Supple, no lymphadenopathy. He has a tunneled right internal jugular dialysis catheter in place. CARDIOVASCULAR: Regular rhythm. ABDOMEN: Soft, nontender and nondistended. No palpable masses. EXTREMITIES: He has a good thrill in his left brachiobasilic fistula. There are no areas of overlying skin breakdown. There is no significant swelling to suggest a deep hematoma. He has good distal radial pulse. He has dressings on both lower legs. LABORATORY DATA: Significant for white blood cell of 3.7, hemoglobin 6.8 and platelet count of 117. INR 1.2. Sodium 143, potassium 3.4, BUN 20, creatinine 2.9 and glucose 88. IMPRESSION: 1. Bleeding due to needle dislodgement during dialysis. 2. No evidence of problems with his left arm arteriovenous fistula. 3. Chronic renal failure on hemodialysis. 4. Diabetes. 5. Bilateral lower leg ulcers. RECOMMENDATIONS: No intervention is required on his left arm fistula at this time. His fistula may be used for dialysis in the future. Please call if there are future problems with dialysis in particular with regards to high venous pressures or problems with recirculation. JULIO CLEMENTE MD DR: ALMAS/celena JOB#: [id number] / [id number] LUANN Tolentino MD
[2018-10-11 07:00] VITALS: BP 116/53
[2018-10-11] MEDS ORDERED: CLOPIDOGREL BISULFATE 75 MG TABLET PO SCH (08:00)
[2018-10-11] MEDS ORDERED: ASPIRIN ENTERIC COATED 81 MG TABLET.DR. PO SCH (08:00)
--- NOTE | 2018-10-11 08:45 | PDOC ---
PROGRESS NOTES History of Present Illness History of Present Illness Assessment/Plan Assessment/Plan impression 1. AV Fistula malfunction, RECENT revision 2, ESRD ON DIALYSIS 3. HTN 4. HYPERLIPIDEMIA 5. chronic venous insuff changes both lower legs 6. MACROCYTIC anemia with pancytopenia PLAN VASCULAR SURG CONSULT Nephrology consult transfuse 2 units PRBC,S NOW wound care nurse consult sq heparin contraindicated as well as scd's heme consult Vitals Vitals Vital Signs Date Time Temp Pulse Resp B/P (MAP) Pulse Ox O2 Delivery O2 Flow Rate FiO2 10/11/18 07:00 98.2 78 16 116/53 (74) 97 Nasal Cannula 2.0 98.2 Physical Exam General: Alert, Oriented X3, Cooperative, mild distress Heart: Regular rate Lungs: Clear, Other Abdomen: Normal bowel sounds, Soft Extremities: No cyanosis Skin: Other (chronic venous insuff chgs both lower legs) Labs LABS Laboratory Tests Test 10/10/18 11:06 10/10/18 13:45 10/10/18 18:35 10/10/18 20:45 White Blood Count 3.7 x10^3/uL (4.0-11.0) 3.6 x10^3/uL (4.0-11.0) Red Blood Count 2.78 x10^6/uL (4.30-5.70) 2.66 x10^6/uL (4.30-5.70) Hemoglobin 6.8 g/dL (13.0-17.5) 6.9 g/dL (13.0-17.5) 6.7 g/dL (13.0-17.5) Hematocrit 21.6 % (39.0-53.0) 21.8 % (39.0-53.0) 21.4 % (39.0-53.0) Mean Corpuscular Volume 78 fL (79-100) 81 fL (79-100) Mean Corpuscular Hemoglobin 25 pg (25-35) 25 pg (25-35) Mean Corpuscular Hemoglobin Concent 32 g/dL (31-37) 31 g/dL (31-37) Red Cell Distribution Width 17.7 % (11.5-14.5) 17.6 % (11.5-14.5) Platelet Count 117 x10^3/uL (140-400) 89 x10^3/uL (140-400) Neutrophils (%) (Auto) 68 % (31-73) 61 % (31-73) Lymphocytes (%) (Auto) 17 % (24-48) 21 % (24-48) Monocytes (%) (Auto) 7 % (0-9) 11 % (0-9) Eosinophils (%) (Auto) 7 % (0-3) 5 % (0-3) Basophils (%) (Auto) 1 % (0-3) 1 % (0-3) Neutrophils # (Auto) 2.5 x10^3uL (1.8-7.7) 2.2 x10^3uL (1.8-7.7) Lymphocytes # (Auto) 0.6 x10^3/uL (1.0-4.8) 0.8 x10^3/uL (1.0-4.8) Monocytes # (Auto) 0.3 x10^3/uL (0.0-1.1) 0.4 x10^3/uL (0.0-1.1) Eosinophils # (Auto) 0.2 x10^3/uL (0.0-0.7) 0.2 x10^3/uL (0.0-0.7) Basophils # (Auto) 0.0 x10^3/uL (0.0-0.2) 0.0 x10^3/uL (0.0-0.2) Reticulocyte Count (auto) 3.0 % (0.5-2.5) Prothrombin Time 14.9 SEC (11.7-14.0) Prothromb Time International Ratio 1.2 (0.8-1.1) Activated Partial Thromboplast Time 32 SEC (24-38) Sodium Level 143 mmol/L (136-145) Potassium Level 3.4 mmol/L (3.5-5.1) Chloride Level 103 mmol/L (98-107) Carbon Dioxide Level 32 mmol/L (21-32) Anion Gap 8 (6-14) Blood Urea Nitrogen 20 mg/dL (8-26) Creatinine 2.9 mg/dL (0.7-1.3) Estimated GFR (Cockcroft-Gault) 21.9 BUN/Creatinine Ratio 7 (6-20) Glucose Level 88 mg/dL (70-99) Calcium Level 8.2 mg/dL (8.5-10.1) Total Bilirubin 0.6 mg/dL (0.2-1.0) Aspartate Amino Transf (AST/SGOT) 14 U/L (15-37) Alanine Aminotransferase (ALT/SGPT) 10 U/L (16-63) Alkaline Phosphatase 94 U/L (46-116) Total Protein 6.2 g/dL (6.4-8.2) Albumin 2.7 g/dL (3.4-5.0) Albumin/Globulin Ratio 0.8 (1.0-1.7) Vitamin B12 Level 716 pg/mL (247-911) Nasal Screen MRSA (PCR) Positive (Negative) Assessment and Plan Assessmemt and Plan Problems Medical Problems: (1) Anemia Status: Acute Comment Review of Relevant I have reviewed the following items carmela (where applicable) has been applied. Labs Laboratory Tests Test 10/10/18 11:06 10/10/18 13:45 10/10/18 18:35 10/10/18 20:45 White Blood Count 3.7 x10^3/uL (4.0-11.0) 3.6 x10^3/uL (4.0-11.0) Red Blood Count 2.78 x10^6/uL (4.30-5.70) 2.66 x10^6/uL (4.30-5.70) Hemoglobin 6.8 g/dL (13.0-17.5) 6.9 g/dL (13.0-17.5) 6.7 g/dL (13.0-17.5) Hematocrit 21.6 % (39.0-53.0) 21.8 % (39.0-53.0) 21.4 % (39.0-53.0) Mean Corpuscular Volume 78 fL (79-100) 81 fL (79-100) Mean Corpuscular Hemoglobin 25 pg (25-35) 25 pg (25-35) Mean Corpuscular Hemoglobin Concent 32 g/dL (31-37) 31 g/dL (31-37) Red Cell Distribution Width 17.7 % (11.5-14.5) 17.6 % (11.5-14.5) Platelet Count 117 x10^3/uL (140-400) 89 x10^3/uL (140-400) Neutrophils (%) (Auto) 68 % (31-73) 61 % (31-73) Lymphocytes (%) (Auto) 17 % (24-48) 21 % (24-48) Monocytes (%) (Auto) 7 % (0-9) 11 % (0-9) Eosinophils (%) (Auto) 7 % (0-3) 5 % (0-3) Basophils (%) (Auto) 1 % (0-3) 1 % (0-3) Neutrophils # (Auto) 2.5 x10^3uL (1.8-7.7) 2.2 x10^3uL (1.8-7.7) Lymphocytes # (Auto) 0.6 x10^3/uL (1.0-4.8) 0.8 x10^3/uL (1.0-4.8) Monocytes # (Auto) 0.3 x10^3/uL (0.0-1.1) 0.4 x10^3/uL (0.0-1.1) Eosinophils # (Auto) 0.2 x10^3/uL (0.0-0.7) 0.2 x10^3/uL (0.0-0.7) Basophils # (Auto) 0.0 x10^3/uL (0.0-0.2) 0.0 x10^3/uL (0.0-0.2) Reticulocyte Count (auto) 3.0 % (0.5-2.5) Prothrombin Time 14.9 SEC (11.7-14.0) Prothromb Time International Ratio 1.2 (0.8-1.1) Activated Partial Thromboplast Time 32 SEC (24-38) Sodium Level 143 mmol/L (136-145) Potassium Level 3.4 mmol/L (3.5-5.1) Chloride Level 103 mmol/L (98-107) Carbon Dioxide Level 32 mmol/L (21-32) Anion Gap 8 (6-14) Blood Urea Nitrogen 20 mg/dL (8-26) Creatinine 2.9 mg/dL (0.7-1.3) Estimated GFR (Cockcroft-Gault) 21.9 BUN/Creatinine Ratio 7 (6-20) Glucose Level 88 mg/dL (70-99) Calcium Level 8.2 mg/dL (8.5-10.1) Total Bilirubin 0.6 mg/dL (0.2-1.0) Aspartate Amino Transf (AST/SGOT) 14 U/L (15-37) Alanine Aminotransferase (ALT/SGPT) 10 U/L (16-63) Alkaline Phosphatase 94 U/L (46-116) Total Protein 6.2 g/dL (6.4-8.2) Albumin 2.7 g/dL (3.4-5.0) Albumin/Globulin Ratio 0.8 (1.0-1.7) Vitamin B12 Level 716 pg/mL (247-911) Nasal Screen MRSA (PCR) Positive (Negative) Laboratory Tests Test 10/10/18 11:06 10/10/18 13:45 10/10/18 18:35 10/10/18 20:45 White Blood Count 3.7 x10^3/uL (4.0-11.0) 3.6 x10^3/uL (4.0-11.0) Red Blood Count 2.78 x10^6/uL (4.30-5.70) 2.66 x10^6/uL (4.30-5.70) Hemoglobin 6.8 g/dL (13.0-17.5) 6.9 g/dL (13.0-17.5) 6.7 g/dL (13.0-17.5) Hematocrit 21.6 % (39.0-53.0) 21.8 % (39.0-53.0) 21.4 % (39.0-53.0) Mean Corpuscular Volume 78 fL (79-100) 81 fL (79-100) Mean Corpuscular Hemoglobin 25 pg (25-35) 25 pg (25-35) Mean Corpuscular Hemoglobin Concent 32 g/dL (31-37) 31 g/dL (31-37) Red Cell Distribution Width 17.7 % (11.5-14.5) 17.6 % (11.5-14.5) Platelet Count 117 x10^3/uL (140-400) 89 x10^3/uL (140-400) Neutrophils (%) (Auto) 68 % (31-73) 61 % (31-73) Lymphocytes (%) (Auto) 17 % (24-48) 21 % (24-48) Monocytes (%) (Auto) 7 % (0-9) 11 % (0-9) Eosinophils (%) (Auto) 7 % (0-3) 5 % (0-3) Basophils (%) (Auto) 1 % (0-3) 1 % (0-3) Neutrophils # (Auto) 2.5 x10^3uL (1.8-7.7) 2.2 x10^3uL (1.8-7.7) Lymphocytes # (Auto) 0.6 x10^3/uL (1.0-4.8) 0.8 x10^3/uL (1.0-4.8) Monocytes # (Auto) 0.3 x10^3/uL (0.0-1.1) 0.4 x10^3/uL (0.0-1.1) Eosinophils # (Auto) 0.2 x10^3/uL (0.0-0.7) 0.2 x10^3/uL (0.0-0.7) Basophils # (Auto) 0.0 x10^3/uL (0.0-0.2) 0.0 x10^3/uL (0.0-0.2) Reticulocyte Count (auto) 3.0 % (0.5-2.5) Prothrombin Time 14.9 SEC (11.7-14.0) Prothromb Time International Ratio 1.2 (0.8-1.1) Activated Partial Thromboplast Time 32 SEC (24-38) Sodium Level 143 mmol/L (136-145) Potassium Level 3.4 mmol/L (3.5-5.1) Chloride Level 103 mmol/L (98-107) Carbon Dioxide Level 32 mmol/L (21-32) Anion Gap 8 (6-14) Blood Urea Nitrogen 20 mg/dL (8-26) Creatinine 2.9 mg/dL (0.7-1.3) Estimated GFR (Cockcroft-Gault) 21.9 BUN/Creatinine Ratio 7 (6-20) Glucose Level 88 mg/dL (70-99) Calcium Level 8.2 mg/dL (8.5-10.1) Total Bilirubin 0.6 mg/dL (0.2-1.0) Aspartate Amino Transf (AST/SGOT) 14 U/L (15-37) Alanine Aminotransferase (ALT/SGPT) 10 U/L (16-63) Alkaline Phosphatase 94 U/L (46-116) Total Protein 6.2 g/dL (6.4-8.2) Albumin 2.7 g/dL (3.4-5.0) Albumin/Globulin Ratio 0.8 (1.0-1.7) Vitamin B12 Level 716 pg/mL (247-911) Nasal Screen MRSA (PCR) Positive (Negative) Medications Current Medications Ondansetron HCl (Zofran) 4 mg PRN Q8HRS PRN IV NAUSEA/VOMITING; Start 10/10/18 at 12:15; Stop 10/11/18 at 12:14 Acetaminophen (Tylenol) 650 mg PRN Q4HRS PRN GT TEMP OVER 100.4F OR MILD PAIN Last administered on 10/10/18at 14:58; Start 10/10/18 at 14:45 Clonidine HCl (Catapres) 0.1 mg PRN Q6HRS PRN PO SBP>160 OR DBP>90; Start 10/10 at 14:45 Docusate Sodium (Colace) 100 mg PRN BID PRN PO CONSTIPATION; Start 10/10/18 at 14:45 Albuterol Sulfate (Ventolin Neb Soln) 2.5 mg PRN Q4HRS PRN NEB SHORTNESS OF BREATH; Start 10/10/18 at 14:45 Acetaminophen (Tylenol) 975 mg PRN QID PRN PO MILD PAIN / TEMP Last administered on 10/10/18at 23:18; Start 10/10/18 at 14:45 Amlodipine Besylate (Norvasc) 10 mg DAILY PO ; Start 10/10/18 at 15:00 Aspirin (Ecotrin) 81 mg DAILYWBKFT PO ; Start 10/11/18 at 08:00 Atorvastatin Calcium (Lipitor) 40 mg QHS PO ; Start 10/10/18 at 21:00 Clopidogrel Bisulfate (Plavix) 75 mg DAILYWBKFT PO ; Start 10/11/18 at 08:00 Vitamin B Complex/ Vitamin C (Concetta-Colton) 1 tab DAILY PO ; Start 10/11/18 at 09: 00 Glipizide (Glucotrol) 5 mg DAILY PO ; Start 10/11/18 at 09:00 Lactulose (Lactulose) 10 gm PRN BID PRN PO CONSTIPATION (2nd Choice); Start at 14:45 Magnesium Hydroxide (Milk Of Magnesia) 400 mg PRN DAILY PRN PO CONSTIPATION ( 1st Choice); Start 10/10/18 at 14:45 Tamsulosin HCl (Flomax) 0.8 mg DAILY PO ; Start 10/11/18 at 09:00 Tramadol HCl (Ultram) 50 mg PRN TID PRN PO MILD TO MODERATE PAIN; Start at 14:45 Calcium Carbonate/ Glycine (Tums) 1,000 mg TID PO Last administered on at 15:11; Start 10/10/18 at 14:45 Divalproex Sodium (Depakote) 500 mg BID@0500,1700 PO Last administered on at 05:25; Start 10/10/18 at 17:00 Ondansetron HCl (Zofran Odt) 4 mg PRN TID PRN PO NAUSEA; Start 10/10/18 at 15: 00 Famotidine (Pepcid) 40 mg QHS PO ; Start 10/10/18 at 21:00 Darbepoetin Jamie (Aranesp) 100 mcg Mo SQ ; Start 10/10/18 at 21:00 Active Scripts Active Aspirin Ec (Aspirin) 81 Mg Tablet.dr 81 Mg PO DAILYWBKFT 30 Days Clopidogrel (Clopidogrel Bisulfate) 75 Mg Tablet 75 Mg PO DAILYWBKFT 30 Days Reported Tramadol Hcl 50 Mg Tablet 50 Mg PO TID PRN Milk Of Magnesia (Magnesium Hydroxide) 400 Mg/5 Ml Oral.susp 400 Mg PO DAILY PRN Glipizide 5 Mg Tablet 5 Mg PO DAILY Atorvastatin Calcium 40 Mg Tablet 1 Tab PO QHS Amlodipine Besylate 10 Mg Tablet 10 Mg PO DAILY [aranesp] 100 Mcg WEEKLY intravenous during dialysis Nephro-Colton Tablet (Folic Acid/Vitamin B Comp W-C) 0.8 Mg Tablet 1 Tab PO DAILY Zofran (Ondansetron Hcl) 4 Mg Tablet 1 Tab PO TID PRN Lactulose 20 Gm/30 Ml Solution 10 Gm PO BID PRN Tylenol (Acetaminophen) 325 Mg Tablet 975 Mg PO PRN QID Ranitidine Hcl 300 Mg Capsule 300 Mg PO HS Calcium Carbonate 500 Mg/5 Ml Oral.susp 1,000 Mg PO TID Tamsulosin Hcl 0.4 Mg Cap.er.24h 0.8 Mg PO DAILY patient takes 2 tablets daily of 0.4mg strength Depakote (Divalproex Sodium) 500 Mg Tablet. 1 Tab PO BID Vitals/I & O Vital Sign - Last 24 Hours 10/10/18 10/10/18 10/10/18 10/10/18 10:49 11:45 12:45 13:25 Temp 98.0 98.2 98.0 98.2 Pulse 87 72 74 84 Resp 17 14 16 17 B/P (MAP) 125/58 (80) 107/54 (71) 117/56 (76) 112/45 (67) Pulse Ox 100 99 97 97 O2 Delivery Nasal Cannula Nasal Cannula Nasal Cannula Nasal Cannula O2 Flow Rate 2.0 2.0 2.0 2.0 10/10/18 10/10/18 10/10/18 10/10/18 15:00 15:00 15:00 15:29 Temp 98.0 99.7 98.0 99.7 Pulse 87 84 87 Resp 17 18 B/P (MAP) 111/51 112/45 (67) 111/51 Pulse Ox 97 O2 Delivery Nasal Cannula Nasal Cannula O2 Flow Rate 2.0 2.0 10/10/18 10/10/18 10/10/18 10/10/18 15:45 16:45 17:45 18:45 Temp 100.9 100.9 99.5 99.0 100.9 100.9 99.5 99.0 Pulse 78 58 81 79 Resp 18 18 18 18 B/P (MAP) 90/41 99/47 110/48 105/47 10/10/18 10/10/18 10/10/18 10/11/18 19:00 20:00 23:01 03:01 Temp 100.4 98.1 100.0 100.4 98.1 100.0 Pulse 76 82 74 Resp 20 20 20 B/P (MAP) 110/46 (67) 126/51 (76) 112/48 (69) Pulse Ox 94 97 95 O2 Delivery Nasal Cannula Nasal Cannula Nasal Cannula Nasal Cannula O2 Flow Rate 2.0 10/11/18 07:00 Temp 98.2 98.2 Pulse 78 Resp 16 B/P (MAP) 116/53 (74) Pulse Ox 97 O2 Delivery Nasal Cannula O2 Flow Rate 2.0 Intake and Output 10/10/18 10/10/18 10/11/18 15:00 23:00 07:00 Intake Total 1415 ml Output Total 50 ml Balance 1415 ml -50 ml LUANN WAHL MD Oct 11, 2018 08:45
--- NOTE | 2018-10-11 08:51 | PDOC ---
Provider Note Provider Note Hem-Onc consult 1. Pancytopenia - pt mentions that it is chronic and he is aware of it and does not want any work up. He wants to be discharged today and he will [facility] with [facility]. See dictation ILYA STREETER MD Oct 11, 2018 08:51
[2018-10-11] MEDS ORDERED: TAMSULOSIN 0.4 MG CAP.ER.24H. PO SCH (09:00)
[2018-10-11] MEDS ORDERED: FOLIC/VIT B COMP W-C (RENAL) TABLET. PO SCH (09:00)
[2018-10-11] MEDS ORDERED: glipiZIDE 5 MG TABLET PO SCH (09:00)
[2018-10-11 10:06] LABS: BASO % 1 % (0-3); EOS # 0.2 x10^3/uL (0.0-0.7); EOS % 6 % (0-3); HEMATOCRIT 22.8 % (39.0-53.0); HEMOGLOBIN 7.2 g/dL (13.0-17.5); LYMPH # 0.9 x10^3/uL (1.0-4.8); LYMPH % 23 % (24-48); MEAN CORPUSCULAR HEMOGLOBIN 26 pg (25-35); MEAN CORPUSCULAR HGB CONC 32 g/dL (31-37); MEAN CORPUSCULAR VOLUME 80 fL (79-100); MONO # 0.5 x10^3/uL (0.0-1.1); MONO % 13 % (0-9); NEUT # 2.2 x10^3uL (1.8-7.7); NEUT % 58 % (31-73); PLATELET COUNT 97 x10^3/uL (140-400); RED BLOOD COUNT 2.84 x10^6/uL (4.30-5.70); RED CELL DISTRIBUTION WIDTH 17.7 % (11.5-14.5); WHITE BLOOD COUNT 3.9 x10^3/uL (4.0-11.0)
--- NOTE | 2018-10-11 10:09 | NUR ---
IP: Pt is mrsa screen + requiring contact precautions.
[2018-10-11 10:12] LABS: ALBUMIN 2.7 g/dL (3.4-5.0); CALCIUM 8.1 mg/dL (8.5-10.1); CREATININE 4.2 mg/dL (0.7-1.3); GFR 14.3; PHOSPHORUS 3.3 mg/dL (2.6-4.7); POTASSIUM 4.3 mmol/L (3.5-5.1)
[2018-10-11 11:00] VITALS: BP 120/54
--- NOTE | 2018-10-11 12:24 | PDOC3 ---
Discharge Summary Visit Information Date of Admission: Oct 10, 2018 Date of Discharge: Oct 11, 2018 Admitting Diagnosis Comment: . AV Fistula malfunction, RECENT revision 2, ESRD ON DIALYSIS 3. HTN 4. HYPERLIPIDEMIA 5. chronic venous insuff changes both lower legs 6. MACROCYTIC anemia with pancytopenia Final Diagnosis Problems Medical Problems: (1) Anemia Status: Acute Brief Hospital Course Allergies Allergies Coded Allergies Type Severity Reaction Last Updated Verified morphine Allergy Intermediate 06/01/18 Yes I S O L A T I O N *CONTACT* Allergy Unknown 06/01/18 Yes Vital Signs Vital Signs Date Time Temp Pulse Resp B/P (MAP) Pulse Ox O2 Delivery O2 Flow Rate FiO2 10/11/18 11:00 98.3 84 20 120/54 (76) 94 Nasal Cannula 2.0 98.3 Lab Results Laboratory Tests Test 10/10/18 11:06 10/10/18 13:45 10/10/18 18:35 10/10/18 20:45 White Blood Count 3.7 x10^3/uL (4.0-11.0) 3.6 x10^3/uL (4.0-11.0) Red Blood Count 2.78 x10^6/uL (4.30-5.70) 2.66 x10^6/uL (4.30-5.70) Hemoglobin 6.8 g/dL (13.0-17.5) 6.9 g/dL (13.0-17.5) 6.7 g/dL (13.0-17.5) Hematocrit 21.6 % (39.0-53.0) 21.8 % (39.0-53.0) 21.4 % (39.0-53.0) Mean Corpuscular Volume 78 fL (79-100) 81 fL (79-100) Mean Corpuscular Hemoglobin 25 pg (25-35) 25 pg (25-35) Mean Corpuscular Hemoglobin Concent 32 g/dL (31-37) 31 g/dL (31-37) Red Cell Distribution Width 17.7 % (11.5-14.5) 17.6 % (11.5-14.5) Platelet Count 117 x10^3/uL (140-400) 89 x10^3/uL (140-400) Neutrophils (%) (Auto) 68 % (31-73) 61 % (31-73) Lymphocytes (%) (Auto) 17 % (24-48) 21 % (24-48) Monocytes (%) (Auto) 7 % (0-9) 11 % (0-9) Eosinophils (%) (Auto) 7 % (0-3) 5 % (0-3) Basophils (%) (Auto) 1 % (0-3) 1 % (0-3) Neutrophils # (Auto) 2.5 x10^3uL (1.8-7.7) 2.2 x10^3uL (1.8-7.7) Lymphocytes # (Auto) 0.6 x10^3/uL (1.0-4.8) 0.8 x10^3/uL (1.0-4.8) Monocytes # (Auto) 0.3 x10^3/uL (0.0-1.1) 0.4 x10^3/uL (0.0-1.1) Eosinophils # (Auto) 0.2 x10^3/uL (0.0-0.7) 0.2 x10^3/uL (0.0-0.7) Basophils # (Auto) 0.0 x10^3/uL (0.0-0.2) 0.0 x10^3/uL (0.0-0.2) Reticulocyte Count (auto) 3.0 % (0.5-2.5) Prothrombin Time 14.9 SEC (11.7-14.0) Prothromb Time International Ratio 1.2 (0.8-1.1) Activated Partial Thromboplast Time 32 SEC (24-38) Sodium Level 143 mmol/L (136-145) Potassium Level 3.4 mmol/L (3.5-5.1) Chloride Level 103 mmol/L (98-107) Carbon Dioxide Level 32 mmol/L (21-32) Anion Gap 8 (6-14) Blood Urea Nitrogen 20 mg/dL (8-26) Creatinine 2.9 mg/dL (0.7-1.3) Estimated GFR (Cockcroft-Gault) 21.9 BUN/Creatinine Ratio 7 (6-20) Glucose Level 88 mg/dL (70-99) Calcium Level 8.2 mg/dL (8.5-10.1) Total Bilirubin 0.6 mg/dL (0.2-1.0) Aspartate Amino Transf (AST/SGOT) 14 U/L (15-37) Alanine Aminotransferase (ALT/SGPT) 10 U/L (16-63) Alkaline Phosphatase 94 U/L (46-116) Total Protein 6.2 g/dL (6.4-8.2) Albumin 2.7 g/dL (3.4-5.0) Albumin/Globulin Ratio 0.8 (1.0-1.7) Vitamin B12 Level 716 pg/mL (247-911) Nasal Screen MRSA (PCR) Positive (Negative) Test 10/11/18 09:50 White Blood Count 3.9 x10^3/uL (4.0-11.0) Red Blood Count 2.84 x10^6/uL (4.30-5.70) Hemoglobin 7.2 g/dL (13.0-17.5) Hematocrit 22.8 % (39.0-53.0) Mean Corpuscular Volume 80 fL (79-100) Mean Corpuscular Hemoglobin 26 pg (25-35) Mean Corpuscular Hemoglobin Concent 32 g/dL (31-37) Red Cell Distribution Width 17.7 % (11.5-14.5) Platelet Count 97 x10^3/uL (140-400) Neutrophils (%) (Auto) 58 % (31-73) Lymphocytes (%) (Auto) 23 % (24-48) Monocytes (%) (Auto) 13 % (0-9) Eosinophils (%) (Auto) 6 % (0-3) Basophils (%) (Auto) 1 % (0-3) Neutrophils # (Auto) 2.2 x10^3uL (1.8-7.7) Lymphocytes # (Auto) 0.9 x10^3/uL (1.0-4.8) Monocytes # (Auto) 0.5 x10^3/uL (0.0-1.1) Eosinophils # (Auto) 0.2 x10^3/uL (0.0-0.7) Basophils # (Auto) 0.0 x10^3/uL (0.0-0.2) Sodium Level 139 mmol/L (136-145) Potassium Level 4.3 mmol/L (3.5-5.1) Chloride Level 101 mmol/L (98-107) Carbon Dioxide Level 31 mmol/L (21-32) Anion Gap 7 (6-14) Blood Urea Nitrogen 34 mg/dL (8-26) Creatinine 4.2 mg/dL (0.7-1.3) Estimated GFR (Cockcroft-Gault) 14.3 Glucose Level 200 mg/dL (70-99) Calcium Level 8.1 mg/dL (8.5-10.1) Phosphorus Level 3.3 mg/dL (2.6-4.7) Albumin 2.7 g/dL (3.4-5.0) Laboratory Tests Test 10/10/18 13:45 10/10/18 18:35 10/10/18 20:45 10/11/18 09:50 Nasal Screen MRSA (PCR) Positive (Negative) Hemoglobin 6.9 g/dL (13.0-17.5) 6.7 g/dL (13.0-17.5) 7.2 g/dL (13.0-17.5) Hematocrit 21.8 % (39.0-53.0) 21.4 % (39.0-53.0) 22.8 % (39.0-53.0) White Blood Count 3.6 x10^3/uL (4.0-11.0) 3.9 x10^3/uL (4.0-11.0) Red Blood Count 2.66 x10^6/uL (4.30-5.70) 2.84 x10^6/uL (4.30-5.70) Mean Corpuscular Volume 81 fL (79-100) 80 fL (79-100) Mean Corpuscular Hemoglobin 25 pg (25-35) 26 pg (25-35) Mean Corpuscular Hemoglobin Concent 31 g/dL (31-37) 32 g/dL (31-37) Red Cell Distribution Width 17.6 % (11.5-14.5) 17.7 % (11.5-14.5) Platelet Count 89 x10^3/uL (140-400) 97 x10^3/uL (140-400) Neutrophils (%) (Auto) 61 % (31-73) 58 % (31-73) Lymphocytes (%) (Auto) 21 % (24-48) 23 % (24-48) Monocytes (%) (Auto) 11 % (0-9) 13 % (0-9) Eosinophils (%) (Auto) 5 % (0-3) 6 % (0-3) Basophils (%) (Auto) 1 % (0-3) 1 % (0-3) Neutrophils # (Auto) 2.2 x10^3uL (1.8-7.7) 2.2 x10^3uL (1.8-7.7) Lymphocytes # (Auto) 0.8 x10^3/uL (1.0-4.8) 0.9 x10^3/uL (1.0-4.8) Monocytes # (Auto) 0.4 x10^3/uL (0.0-1.1) 0.5 x10^3/uL (0.0-1.1) Eosinophils # (Auto) 0.2 x10^3/uL (0.0-0.7) 0.2 x10^3/uL (0.0-0.7) Basophils # (Auto) 0.0 x10^3/uL (0.0-0.2) 0.0 x10^3/uL (0.0-0.2) Sodium Level 139 mmol/L (136-145) Potassium Level 4.3 mmol/L (3.5-5.1) Chloride Level 101 mmol/L (98-107) Carbon Dioxide Level 31 mmol/L (21-32) Anion Gap 7 (6-14) Blood Urea Nitrogen 34 mg/dL (8-26) Creatinine 4.2 mg/dL (0.7-1.3) Estimated GFR (Cockcroft-Gault) 14.3 Glucose Level 200 mg/dL (70-99) Calcium Level 8.1 mg/dL (8.5-10.1) Phosphorus Level 3.3 mg/dL (2.6-4.7) Albumin 2.7 g/dL (3.4-5.0) Brief Hospital Course Mr. Gupta is a 68 old male inmate, admitted because of initial thoughts of AV fistula malfunction.vasc surgery consulted. I do not think he actually needed any intervention. Is now functioning fine and tolerating dialysis. No other intervention or management. Okay to go back to [facility] with previous home meds dc < 30 mins Discharge Information Condition at Discharge: Improved, Stable Disposition/Orders: Other (priosn) Scheduled Acetaminophen (Tylenol) 325 Mg Tablet, 975 MG PO PRN QID, (Reported) Entered as Reported by: SALVATORE VILLANUEVA on 05/31/18 1135 Last Action: Continued on 10/10/181437 by LUANN WAHL MD Amlodipine Besylate (Amlodipine Besylate) 10 Mg Tablet, 10 MG PO DAILY for blood pressure, (Reported) Entered as Reported by: MICHAEL VERDE on 10/10/18 1436 Last Action: Continued on 10/10/181437 by LUANN WAHL MD Aspirin (Aspirin Ec) 81 Mg Tablet.dr, 81 MG PO DAILYWBKFT for 30 Days, #30 Prescribed by: MANINDER VILLA MD on 02/14/18 1050 Last Action: Continued on 10/10/181437 by LUANN WAHL MD Atorvastatin Calcium (Atorvastatin Calcium) 40 Mg Tablet, 1 TAB PO QHS for cholesterol, #90 Ref 3 (Reported) Entered as Reported by: MICHAEL VERDE on 10/10/18 143 Last Action: Continued on 10/10/181437 by LUANN WAHL MD Calcium Carbonate (Calcium Carbonate) 500 Mg/5 Ml Oral.susp, 1,000 MG PO TID for renal, (Reported) Entered as Reported by: SALVATORE VILLANUEVA on 05/31/18 1132 Last Action: Converted on 10/10/181437 by LUANN WAHL MD Clopidogrel Bisulfate (Clopidogrel) 75 Mg Tablet, 75 MG PO DAILYWBKFT for 30 Days, #30 Prescribed by: MANINDER VILLA MD on 02/14/18 1050 Last Action: Continued on 10/10/181437 by LUANN WAHL MD Divalproex Sodium (Depakote) 500 Mg Tablet.dr, 1 TAB PO BID, #60 Ref 1 (Reported ) Entered as Reported by: Buck Poole on 04/10/17 0400 Last Action: Converted on 10/10/181437 by LUANN WAHL MD Folic Acid/Vitamin B Comp W-C (Nephro-Colton Tablet) 0.8 Mg Tablet, 1 TAB PO DAILY for supplement, #30 Ref 5 (Reported) Entered as Reported by: MICHAEL VERDE on 10/10/18 143 Last Action: Continued on 10/10/181437 by LUANN WAHL MD Glipizide (Glipizide) 5 Mg Tablet, 5 MG PO DAILY for blood sugar, (Reported) Entered as Reported by: MICHAEL VERDE on 10/10/18 143 Last Action: Continued on 10/10/181437 by LUANN WAHL MD Ranitidine Hcl (Ranitidine Hcl) 300 Mg Capsule, 300 MG PO HS, (Reported) Entered as Reported by: SALVATORE VILLANUEVA on 05/31/18 1134 Last Action: Converted on 10/10/181437 by LUANN WAHL MD Tamsulosin Hcl (Tamsulosin Hcl) 0.4 Mg Cap.er.24h, 0.8 MG PO DAILY, (Reported) patient takes 2 tablets daily of 0.4mg strength Entered as Reported by: Buck Poole on 04/10/17 0400 Last Action: Continued on 10/10/181437 by LUANN WAHL MD [aranesp] , 100 MCG WEEKLY, (Reported) intravenous during dialysis Entered as Reported by: MICHAEL EVRDE on 10/10/181435 Last Action: Converted on 10/10/181437 by LUANN WAHL MD Scheduled PRN Lactulose (Lactulose) 20 Gm/30 Ml Solution, 10 GM PO BID PRN for CONSTIPATION, ( Reported) Entered as Reported by: SALVATORE VILLANUEVA on 05/31/18 1208 Last Action: Continued on 10/10/181437 by LUANN WAHL MD Magnesium Hydroxide (Milk Of Magnesia) 400 Mg/5 Ml Oral.susp, 400 MG PO DAILY PRN for CONSTIPATION, (Reported) Entered as Reported by: MICHAEL VERDE on 10/10/181435 Last Action: Continued on 10/10/181437 by LUANN WAHL MD Ondansetron Hcl (Zofran) 4 Mg Tablet, 1 TAB PO TID PRN for NAUSEA, #20 (Reported ) Entered as Reported by: MICHAEL VERDE on 10/10/18 143 Last Action: Converted on 10/10/181437 by LUANN WAHL MD Tramadol Hcl (Tramadol Hcl) 50 Mg Tablet, 50 MG PO TID PRN for PAIN, Ref 0 ( Reported) Entered as Reported by: MICHAEL VERDE on 10/10/181435 Last Action: Continued on 10/10/181437 by MD MIKHAIL MONTAÑO CHERRIE Y MD Oct 11, 2018 12:23
--- NOTE | 2018-10-11 13:41 | NUR ---
Discharge Note: VICK PERALTA Discharge instructions and discharge home medications reviewed with Patient and a copy given. All questions have been answered and understanding verbalized. Discontinued lines and drains: peripheral IV. Patient discharged to [facility] with Self via Wheelchair.
--- NOTE | 2018-10-11 23:05 | CONS ---
DATE OF CONSULTATION: 10/11/2018 CONSULTATION REQUESTED BY: Juanjo Prabhakar MD REASON FOR CONSULTATION: Pancytopenia. HISTORY OF PRESENT ILLNESS: The patient is a 68-year-old gentleman who is incarcerated and he was brought in to [facility] by the EMS from the dialysis center for evaluation of bleeding from his dialysis AV fistula at the [facility]. He has an AV fistula in the left arm that was revised recently. Three hours into the dialysis session, he started bleeding profusely from the puncture wound at the fistula site. His hemoglobin was only 6.8 in the Emergency Room. Vascular Surgery was consulted and the patient was evaluated by Dr. John Russell who felt that the bleeding was due to needle dislodgement during dialysis and no further intervention is needed. Bleeding has now stopped. The patient received one unit of packed red blood cell transfusion. Follow up hemoglobin on 10/11/2018 had improved to 7.2. The patient also was noted to have pancytopenia with a WBC of 3.7 and platelet 117,000 and hence I was consulted. Review of the old records indicates that he has had chronic pancytopenia at least since 05/2018 when his platelet count was only 48,000 and WBC count was 2.7. The patient reports that he is aware of chronic pancytopenia and he denies any history of bleeding complications due to thrombocytopenia. He denies any history of liver disease or cirrhosis of the liver. No history of chronic infections. PAST MEDICAL HISTORY: End-stage renal disease on dialysis, diabetes, hypertension, seizure, coronary artery disease, hyperlipidemia and hyperparathyroidism. FAMILY HISTORY: Positive for hypertension and coronary artery disease. SOCIAL HISTORY: No smoking or alcohol abuse. REVIEW OF SYSTEMS: A 12-point review of system was performed. Pertinent positives are mentioned in the history of present illness. Rest of the system review is negative. PHYSICAL EXAMINATION: GENERAL APPEARANCE: The patient is a 68-year-old gentleman who is in no acute cardiorespiratory distress. VITAL SIGNS: Blood pressure 116/53 and temperature 98.2. HEENT: Head is atraumatic and normocephalic. Eyes: No icterus. NECK: Supple. CHEST: Bilaterally symmetrical. No crepitations or rhonchi heard. HEART: S1 and S2 normal. ABDOMEN: Soft and nontender. CENTRAL NERVOUS SYSTEM: No focal deficits. LYMPHATICS: No lymphadenopathy. SKIN: No rashes. PSYCHOLOGIC: Mood and affect are appropriate. LABORATORY DATA: WBC 3.9, hemoglobin 7.2 and platelet count 97. Creatinine 4.2. IMPRESSION AND PLAN: 1. Chronic anemia likely from end-stage renal disease. Recent drop in the hemoglobin is thought to be due to bleeding from the left AV fistula, which has now resolved. He received one unit of PRBC transfusion and hemoglobin improved from 6.8 on 10/10/2018 up to 7.2 on 10/11/2018. In addition, he has evidence of leukopenia and thrombocytopenia. Hence, I discussed with him about the option of further workup with an ultrasound of the abdomen to evaluate for any evidence of liver disease or splenomegaly and if they are all negative then to consider bone marrow biopsy. He does not want to pursue with any further workup. He mentions that the pancytopenia is chronic and he prefers current management with supportive care. He wants to be discharged back to his intermediate facility today. I discussed with Dr. Juanjo Prabhakar. I have recommended follow up with his primary care physician for continued monitoring and supportive care. 2. End-stage renal disease. He is on hemodialysis. 3. Bleeding from the AV fistula has now resolved. Appreciate Vascular Surgery consultation. ILYA STREETER MD DR: FILIBERTO/nts JOB#: [id number] / [id number]
== END 2018-10-11 13:25 | disposition home or self-care (01) | DRG 314 ==
LOC: EEVIPCON 10:57 → ER 10:57 → 5 NORTH 12:12
PROVIDERS: ADMIT Family Medicine; ATTEND Family Medicine
PROC: 30233N1 Transfusion of Nonautologous Red Blood Cells into Peripheral Vein, Percutaneous Approach (ICD-10-PCS; principal; 2018-10-10)
DX: T82.520A Displacement of surgically created arteriovenous fistula, initial encounter (principal); N18.6 End stage renal disease; D62 Acute posthemorrhagic anemia; I12.0 Hypertensive chronic kidney disease with stage 5 chronic kidney disease or end stage renal disease; D61.818 Other pancytopenia; L97.819 Non-pressure chronic ulcer of other part of right lower leg with unspecified severity; L97.829 Non-pressure chronic ulcer of other part of left lower leg with unspecified severity; T82.838A Hemorrhage due to vascular prosthetic devices, implants and grafts, initial encounter; D63.1 Anemia in chronic kidney disease; E11.22 Type 2 diabetes mellitus with diabetic chronic kidney disease; G40.909 Epilepsy, unspecified, not intractable, without status epilepticus; E11.622 Type 2 diabetes mellitus with other skin ulcer; E21.3 Hyperparathyroidism, unspecified; I25.10 Atherosclerotic heart disease of native coronary artery without angina pectoris; I87.2 Venous insufficiency (chronic) (peripheral); E78.5 Hyperlipidemia, unspecified; Y84.1 Kidney dialysis as the cause of abnormal reaction of the patient, or of later complication, without mention of misadventure at the time of the procedure; Z88.5 Allergy status to narcotic agent; Z82.49 Family history of ischemic heart disease and other diseases of the circulatory system; Z99.2 Dependence on renal dialysis; Z79.84 Long term (current) use of oral hypoglycemic drugs
CPT/HCPCS: 36415; 36430; 80053; 80069; 82040; 82607; 85014; 85018; 85025; 85045; 85610; 85730; 86850; 86900; 86901; 86920; 87641; P9016; 99285-25